=== PATIENT | female | born 1980 | race Caucasian/White ===

== ENCOUNTER → 2019-10-17 09:09 | Outpatient (BNVA) | payer OTHER, MEDICAID, SELFPAY | PROVIDERS: Family Provider Family Medicine; Visit Provider Psychiatry & Neurology Neurology | DX: M54.2 Cervicalgia (principal); M79.602 Pain in left arm; M79.601 Pain in right arm | CPT/HCPCS: 95886; 95910 ==

== ENCOUNTER → 2019-10-28 17:09 | Outpatient (BNVA) | payer OTHER, MEDICAID, SELFPAY | PROVIDERS: Family Provider Family Medicine; Visit Provider Obstetrics & Gynecology | DX: E89.40 Asymptomatic postprocedural ovarian failure (principal); N76.0 Acute vaginitis; B96.89 Other specified bacterial agents as the cause of diseases classified elsewhere | CPT/HCPCS: 87210 ==

== ENCOUNTER → 2019-12-12 09:32 | Outpatient (BNVA) | payer OTHER, MEDICAID, SELFPAY | PROVIDERS: Family Provider Family Medicine; PCP Family Medicine; Referring Provider Specialist; Visit Provider Anesthesiology Pain Medicine | DX: M54.81 Occipital neuralgia (principal); M47.812 Spondylosis without myelopathy or radiculopathy, cervical region; M62.838 Other muscle spasm; F17.210 Nicotine dependence, cigarettes, uncomplicated | CPT/HCPCS: 64405; J1030; J3490 ==

== ENCOUNTER → 2019-12-16 15:57 | Outpatient (BNVA) | payer OTHER, MEDICAID, SELFPAY | PROVIDERS: Family Provider Family Medicine; PCP Family Medicine; Visit Provider Obstetrics & Gynecology | DX: B37.3 Candidiasis of vulva and vagina (principal) | CPT/HCPCS: 87210 ==

== ENCOUNTER → 2019-12-26 12:32 | Outpatient (BNVA) | payer OTHER, MEDICAID, SELFPAY | PROVIDERS: Family Provider Family Medicine; PCP Family Medicine; Visit Provider Anesthesiology Pain Medicine | DX: M54.2 Cervicalgia (principal); M54.81 Occipital neuralgia | CPT/HCPCS: 62321; J1100; J2001 ==

== ENCOUNTER → 2020-02-06 08:47 | Outpatient (BNVA) | payer OTHER, MEDICAID, SELFPAY | PROVIDERS: Family Provider Family Medicine; PCP Family Medicine; Visit Provider Anesthesiology Pain Medicine | DX: M47.812 Spondylosis without myelopathy or radiculopathy, cervical region (principal); M54.16 Radiculopathy, lumbar region; M54.81 Occipital neuralgia; M62.838 Other muscle spasm; F17.210 Nicotine dependence, cigarettes, uncomplicated; Z79.891 Long term (current) use of opiate analgesic | CPT/HCPCS: 64405; 99214; J1040; J3490 ==

== ENCOUNTER → 2020-03-09 09:34 | Outpatient (BNVA) | payer OTHER, MEDICAID, SELFPAY | PROVIDERS: Family Provider Family Medicine; PCP Family Medicine; Visit Provider Anesthesiology Pain Medicine | DX: M47.812 Spondylosis without myelopathy or radiculopathy, cervical region (principal); M54.81 Occipital neuralgia; M62.838 Other muscle spasm; F17.210 Nicotine dependence, cigarettes, uncomplicated | CPT/HCPCS: 99213 ==

== ENCOUNTER 2020-03-09 10:50 | Outpatient (CLI) | payer OTHER, MEDICAID, SELFPAY ==
--- NOTE | 2020-03-09 11:02 | XR_ITS ---
WS: [id number] LUMBAR SPINE TECHNIQUE: 5 views of the lumbar spine CLINICAL INFORMATION: back and leg pain COMPARISON: October 01, 2018 FINDINGS: Mild lumbar curve convex left. Cholecystectomy clips. Five [id number] lumbar vertebral bodies. D isc space heights are well preserved. No compression fractures. No visualized pars defects. No spondy lolisthesis. Visualized sacroiliac joints are normal. Normal visualized soft tissues. Partially visua lized bowel gas pattern is normal. XR/XR lumbar spine min 4V [id number] IMPRESSION: 1. Mild lumbar curve convex left. 2. No acute lumbar spine findings. 3. Disc space heights and vertebral body heights well-preserved.
== END 2020-03-09 10:51 | disposition home or self-care (01) ==
LOC: WPI 10:54
PROVIDERS: PCP Family Medicine; Visit Provider Anesthesiology Pain Medicine
DX: M54.9 Dorsalgia, unspecified (principal); M79.606 Pain in leg, unspecified
CPT/HCPCS: 72114

== ENCOUNTER → 2020-03-18 09:40 | Outpatient (BNVA) | payer OTHER, MEDICAID, SELFPAY | PROVIDERS: PCP Family Medicine; Visit Provider Anesthesiology Pain Medicine | DX: M47.812 Spondylosis without myelopathy or radiculopathy, cervical region (principal); M47.816 Spondylosis without myelopathy or radiculopathy, lumbar region; M54.81 Occipital neuralgia; M62.838 Other muscle spasm; F17.210 Nicotine dependence, cigarettes, uncomplicated | CPT/HCPCS: 99214 ==

== ENCOUNTER → 2020-03-23 13:57 | Outpatient (BNVA) | payer OTHER, MEDICAID, SELFPAY | PROVIDERS: PCP Family Medicine; Visit Provider Anesthesiology Pain Medicine | DX: M47.816 Spondylosis without myelopathy or radiculopathy, lumbar region (principal); M54.9 Dorsalgia, unspecified; F17.210 Nicotine dependence, cigarettes, uncomplicated; Z79.891 Long term (current) use of opiate analgesic | CPT/HCPCS: 64493; 64494; 64495; J2001; J3490 ==

== ENCOUNTER → 2020-04-01 09:19 | Outpatient (BNVA) | payer OTHER, MEDICAID, SELFPAY | PROVIDERS: PCP Family Medicine; Visit Provider Anesthesiology Pain Medicine | DX: M54.16 Radiculopathy, lumbar region (principal); M47.816 Spondylosis without myelopathy or radiculopathy, lumbar region; M54.9 Dorsalgia, unspecified; M47.812 Spondylosis without myelopathy or radiculopathy, cervical region; M54.81 Occipital neuralgia; M62.838 Other muscle spasm; F17.210 Nicotine dependence, cigarettes, uncomplicated; Z79.891 Long term (current) use of opiate analgesic | CPT/HCPCS: 99214 ==

== ENCOUNTER 2020-04-08 17:23 | Outpatient (CLI) | payer OTHER, MEDICAID, SELFPAY ==
--- NOTE | 2020-04-08 17:30 | MR_ITS ---
WS: [id number] MRI LUMBAR SPINE NONCONTRAST TECHNIQUE: Sagittal T1, T2 and STIR imaging. Axial T1 and T2 imaging. CLINICAL INFORMATION: M54.16 Radiculopathy, lumbar region COMPARISON: None. FINDINGS: Normal lumbar line. No acute compression. No high-grade central canal stenosis. L1-L2: Normal. L2-L3: No significant disc bulging. Mild facet arthropathy. Spinal canal and foramen are patent. L3-L4: Tiny left foraminal protrusion with mild left and no significant right foraminal narrowing. Sp inal canal is patent. Mild facet arthropathy. L4-L5: No significant disc bulging. Spinal canal and foramen are patent. Mild facet arthropathy. L5-S1: No significant disc bulging. Mild facet arthropathy. Spinal canal and foramen are patent. Visualized pelvic bony structures: Normal. Paravertebral soft tissues: Normal. MR/MR lumbar spine wo con* [id number] IMPRESSION: 1. Normal lumbar alignment. No acute compression. No high-grade central canal stenosis. 2. Tiny left foraminal protrusion L3-4 with mild left foraminal narrowing. 3. Mild facet arthropathy L3-L5.
== END 2020-04-08 17:24 | disposition home or self-care (01) ==
PROVIDERS: PCP Family Medicine; Visit Provider Anesthesiology Pain Medicine
DX: M54.16 Radiculopathy, lumbar region (principal); M47.816 Spondylosis without myelopathy or radiculopathy, lumbar region
CPT/HCPCS: 72148

== ENCOUNTER → 2020-04-09 11:51 | Outpatient (BNVA) | payer OTHER, MEDICAID, SELFPAY | PROVIDERS: PCP Family Medicine; Referring Provider Nurse Practitioner Family; Visit Provider Specialist | DX: G43.709 Chronic migraine without aura, not intractable, without status migrainosus (principal); M79.7 Fibromyalgia; F17.210 Nicotine dependence, cigarettes, uncomplicated | CPT/HCPCS: 99214 ==

== ENCOUNTER 2020-04-10 10:57 | Outpatient (CLI) | payer OTHER, MEDICAID, SELFPAY ==
--- NOTE | 2020-04-10 11:02 | XR_ITS ---
WS: [id number] Chest 2 views, 04/10/2020 Clinical Data: WEIGHT LOSS;SMOKER Comparison: PA and lateral chest, 10/10/2018. Findings: No nodules, masses or effusions are seen. The heart is normal. The pulmonary vascularity is not increased. No pneumonia or pneumothorax is seen. XR/XR chest 2V* [id number] Impression: Negative chest.
== END 2020-04-10 10:58 | disposition home or self-care (01) ==
LOC: RADWPI 10:59
PROVIDERS: Family Provider Family Medicine; PCP Family Medicine; Visit Provider Family Medicine
DX: R63.4 Abnormal weight loss (principal); F17.210 Nicotine dependence, cigarettes, uncomplicated
CPT/HCPCS: 71046

== ENCOUNTER → 2020-04-15 09:04 | Outpatient (BNVA) | payer OTHER, MEDICAID, SELFPAY | PROVIDERS: PCP Family Medicine; Visit Provider Anesthesiology Pain Medicine | DX: M54.81 Occipital neuralgia (principal); M47.812 Spondylosis without myelopathy or radiculopathy, cervical region; M47.816 Spondylosis without myelopathy or radiculopathy, lumbar region; M54.16 Radiculopathy, lumbar region; M54.9 Dorsalgia, unspecified; M62.838 Other muscle spasm; F17.210 Nicotine dependence, cigarettes, uncomplicated | CPT/HCPCS: 99213; 99214 ==

== ENCOUNTER → 2020-05-11 09:30 | Outpatient (BNVA) | payer OTHER, MEDICAID, SELFPAY | PROVIDERS: PCP Internal Medicine; Visit Provider Anesthesiology Pain Medicine | DX: M47.816 Spondylosis without myelopathy or radiculopathy, lumbar region (principal); M54.16 Radiculopathy, lumbar region; M47.812 Spondylosis without myelopathy or radiculopathy, cervical region; M48.02 Spinal stenosis, cervical region; M54.81 Occipital neuralgia; M54.9 Dorsalgia, unspecified; M62.838 Other muscle spasm; F17.210 Nicotine dependence, cigarettes, uncomplicated | CPT/HCPCS: 99213 ==

== ENCOUNTER → 2020-05-18 14:04 | Outpatient (BNVA) | payer OTHER, MEDICAID, SELFPAY | PROVIDERS: PCP Internal Medicine; Visit Provider Anesthesiology Pain Medicine | DX: M47.816 Spondylosis without myelopathy or radiculopathy, lumbar region (principal); M54.9 Dorsalgia, unspecified; F17.210 Nicotine dependence, cigarettes, uncomplicated; Z79.891 Long term (current) use of opiate analgesic | CPT/HCPCS: 64493; 64494; 64495; J1040; J3490 ==

== ENCOUNTER 2020-05-21 17:50 | Emergency (ER) | payer OTHER, MEDICAID, SELFPAY ==
[2020-05-21 18:07] VITALS: BP 119/78; PULSE 85; RESP 14; TEMP 36.7; O2SAT 99; BMI 21.2
--- NOTE | 2020-05-21 19:09 | ED_ITS ---
HPI - General Adult General: Chief complaint: General Medical Stated complaint: SORE THROAT/ACHES Time Seen by Provider: 05/21/20 19:08 History of Present Illness: HPI narrative: Patient is a 40-year-old female comes to the ED with a sore throat, episodic chest pains and shortness of breath. Patient says sore throat started about 3 days ago. Within the last 24 hours she started developing a dry cough. She reports having an episode of chest pain last night that lasted a couple minutes along with shortness of breath during that time. It resolved and then today while patient was at work when she was up and moving around she started experiencing some mild chest pain and shortness of breath. Patient also says for the past couple days she has had left calf pain. Patient has no history of blood clots or DVT or cardiac issues. Denies fever, chills, nausea/vomiting, abdominal pain, dysuria, hematuria, diarrhea, constipation, blood in stool. Associated symptoms: Reports chest pain (episodic- not currently experiencing symptom) and dyspnea (episodic- not currently experiencing symptom); Deny headache(s), nausea, rash, palpitations or vomiting Review of Systems Const: Denies: fever(s), chills or fatigue Eyes: Denies: change in vision or eye discomfort ENMT: Reports: throat pain; Denies: odynophagia, nasal discharge or nasal congestion Card: Reports: chest pain (episodic- not currently experiencing symptom); Denies: palpitations, edema, swelling of feet/ankles, dyspnea on exertion or orthopnea Resp: Reports: dyspnea (episodic- not currently experiencing symptom); Denies: productive cough or non-productive cough GI: Denies: abdominal pain, nausea, vomiting, diarrhea, constipation or hematochezia : Denies: flank pain, dysuria or hematuria Musc: Reports: extremity pain (left calf pain); Denies: neck pain, back pain or extremity swelling Skin/Breast: Denies: rash or new lesions Neuro: Denies: headache(s), numbness in extremities or weakness in extremities PFS ED PFSH: Medical History Cervical disc displacement Chronic GERD Chronic migraine 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 Diverticulosis Endometriosis Previously diagnosed with endometriosis by laparoscopy. Definitively treated with LAVH and BSO on 07/04/2017. History of gestational diabetes Diagnosed in third in 2015. Urinary, incontinence, stress female Surgical History History of cholecystectomy (~11/2013) Laparoscopic. Performed at [facility] History of hysterectomy (07/04/17) LAVH/BSO. Dx: Endometriosis, Chronic pelvic pain, Right ovarian cyst. Performed by Dr. Swenson at [facility] in [place], [place]. Final diagnosis: Right mucinous cystadenoma. History of laparoscopy (~2003) Treatment of endometriosis. Performed by Dr. Shane at [facility]. History of laparoscopy (~2004) Treatment of endometriosis. Performed by Dr. Shane at [facility]. Family History Father Hypertension Prostate cancer Grandfather Heart disease PATERNAL Colon cancer PATERNAL Lung cancer MATERNAL Grandmother Heart disease PATERNAL Breast cancer PATERNAL Family/Other Diabetes MATERNAL AUNT Breast cancer PATERNAL AUNT Ovarian cancer PATERNAL COUSIN Leukemia Maternal Aunt Mother Lung cancer Social History Smoking and tobacco status: current every day smoker cigarettes Packs smoked per day: 1 Years cigarettes smoked: 23 Alcohol intake: never History of recent travel: No Physical Exam Const: COMMON NORMALS: no acute distress, patient oriented x3, healthy appearing and alert GENERAL APPEARANCE: cooperative and comfortable HENMT: COMMON NORMALS: normocephalic HEAD & SCALP: normocephalic MOUTH: Normal oral and palatal mucosa present THROAT: uvula midline and posterior oropharynx abnormal erythema Eye: COMMON NORMALS: Equal, round and reactive pupils present and conjunctivae normal CONJUNCTIVA: Yes conjunctivae normal PUPIL: Yes Equal, round and reactive pupils present Neck/C-Spine: COMMON NORMALS: supple GENERAL: Yes normal visual inspection Resp: COMMON NORMALS: normal respiratory effort, No retractions, No use of accessory muscles and clear to auscultation bilaterally EFFORT & INSPECTION: Yes able to speak in complete sentences, No tachypneic, No respiratory distress, No labored and No Actively coughing AUSCULTATION: clear to auscultation bilaterally Cardio: COMMON NORMALS: regular rate, regular rhythm, S1 normal heart sound present, S2 normal heart sound present, No gallops present (Cardio), No clicks present (Cardio), No murmurs present (Cardio) and Peripheral pulses 2+ throughout RATE: regular rate RHYTHM: regular rhythm HEART SOUNDS: S1 normal heart sound present and S2 normal heart sound present PERIPHERAL PULSES: Peripheral pulses 2+ throughout GI: COMMON NORMALS: Normal to inspection, nondistended, normoactive bowel sounds present, Soft to palpation, non-tender and no masses PALPATION: Yes Soft to palpation : COMMON NORMALS: Yes no CVA tenderness BLADDER/KIDNEY EXAM: Yes no CVA tenderness Back/Pelvis: COMMON NORMALS: no CVA tenderness Extremity: NARRATIVE EXTREMITY EXAM: Patient had left calf tenderness, but no edema of left lower extremity. GENERAL: Yes normal exam except as noted Neuro: COMMON NORMALS: patient oriented x3 and moves all extremities SENSORIUM/ORIENTATION: Yes alert Skin: COMMON NORMALS: no rashes or lesions noted GENERAL SKIN EXAM: no rashes or lesions noted and dry skin Course Vital Signs: Vital signs: Vital Signs Temperature 98.0 F 05/21/20 18:07 Pulse Rate 72 05/21/20 21:14 Respiratory Rate 14 05/21/20 21:14 Blood Pressure 107/72 05/21/20 21:14 Pulse Oximetry 98 05/21/20 21:14 MDM - General Adult MDM Narrative: Medical decision making narrative: Patient is a 40 year-old female comes to the ED with sore throat and an episode of chest pain and shortness of breath. Physical exam shows a healthy patient with no signs of respiratory distress or pain. Lungs are clear to auscultation bilaterally and posterior oropharynx has some erythema. Patient also has some left calf tenderness upon palpation, but no lower extremity edema and pedal pulse 2+. CBC, CMP were unremarkable. EKG showed normal sinus rhythm with no ST segment elevation or depression. Troponin is negative. Chest x-ray showed no acute findings. Ultrasound venous duplex of the left lower extremity showed no DVTs or blood clots. COVID-19 testing performed and labs pending. Patient was diagnosed with upper respiratory infection and noncardiac chest pain. Patient was told to self quarantine for the next 14 days pending COVID-19 results. Return to ED precautions given. Follow-up with PCP in 7 to 10 days for reevaluation. Patient understood and agreed with plan. Lab Data: Attestation: I reviewed the patient's lab results. Labs: Lab Results 05/21/20 05/21/20 05/21/20 Range/Units 19:26 19:26 19:26 WBC 10.5 H (4.0-10.0) 10^3/ uL RBC 4.05 L (4.1-5.3) 10^6/u L Hgb 12.4 (11.5-15.3) g/dL Hct 38.1 (37.0-47.0) % MCV 94.1 (81-99) fL MCH 30.6 (28.0-34.0) pg MCHC 32.5 (30.0-36.0) g/dL RDW 13.8 (12.1-15.1) % Plt Count 243 (130-400) 10^3/c mm MPV 10.7 H (7.4-10.4) fL Neut % (Auto) 64.6 % Lymph % (Auto) 25.2 % [place] % (Auto) 6.8 % Eos % (Auto) 2.2 % Baso % (Auto) 0.8 % Neut # (Auto) 6.79 (1.8-7.7) 10^3/u L Lymph # (Auto) 2.6 (0.8-4.8) 10^3/u L [place] # (Auto) 0.7 (0.2-0.9) 10^3/u L Eos # (Auto) 0.2 (0.0-0.8) 10^3/u L Baso # (Auto) 0.1 (0.0-0.1) 10^3/u L Nucleated RBC % (a uto) 0 % Nucleated RBCs # 0.0 /100WBC Sodium 138 (136-145) mmol/L Potassium 3.4 L (3.5-5.1) mmol/L Chloride 105 (98-107) mmol/L Carbon Dioxide 22 (22-29) mmol/L Anion Gap 14.4 (5-19) BUN 16 (6-20) mg/dL Creatinine 0.6 (0.5-0.9) mg/dL GFR Calculation 110.7 (90-130) mL/min Glucose 95 (65-115) mg/dL Calculated Osmolal ity 282 L (285-295) mOsm/k g Calcium 9.2 (8.5-10.5) mg/dL Total Bilirubin 0.2 (0.15-1.2) mg/dL AST 12 (0-32) U/L ALT 9 (0-33) U/L Alkaline Phosphata se 101 (35-105) IU/L Troponin T Baselin e 6 (0-10) ng/L Total Protein 7.2 (6.6-8.7) g/dL Albumin 4.4 (3.5-5.2) g/dL Globulin 2.8 (1.3-4.6) g/dL Group A Strep Rapi d (Negative) 05/21/20 Range/Units 19:31 WBC (4.0-10.0) 10^3/ uL RBC (4.1-5.3) 10^6/u L Hgb (11.5-15.3) g/dL Hct (37.0-47.0) % MCV (81-99) fL MCH (28.0-34.0) pg MCHC (30.0-36.0) g/dL RDW (12.1-15.1) % Plt Count (130-400) 10^3/c mm MPV (7.4-10.4) fL Neut % (Auto) % Lymph % (Auto) % [place] % (Auto) % Eos % (Auto) % Baso % (Auto) % Neut # (Auto) (1.8-7.7) 10^3/u L Lymph # (Auto) (0.8-4.8) 10^3/u L [place] # (Auto) (0.2-0.9) 10^3/u L Eos # (Auto) (0.0-0.8) 10^3/u L Baso # (Auto) (0.0-0.1) 10^3/u L Nucleated RBC % (a uto) % Nucleated RBCs # /100WBC Sodium (136-145) mmol/L Potassium (3.5-5.1) mmol/L Chloride (98-107) mmol/L Carbon Dioxide (22-29) mmol/L Anion Gap (5-19) BUN (6-20) mg/dL Creatinine (0.5-0.9) mg/dL GFR Calculation (90-130) mL/min Glucose (65-115) mg/dL Calculated Osmolal ity (285-295) mOsm/k g Calcium (8.5-10.5) mg/dL Total Bilirubin (0.15-1.2) mg/dL AST (0-32) U/L ALT (0-33) U/L Alkaline Phosphata se (35-105) IU/L Troponin T Baselin e (0-10) ng/L Total Protein (6.6-8.7) g/dL Albumin (3.5-5.2) g/dL Globulin (1.3-4.6) g/dL Group A Strep Rapi d Negative (Negative) Imaging Data^: CXR: Attestation: I personally reviewed and interpreted this imaging study as follows: Radiologist's impression: [address] [address] XRay Report Signed Patient: Tess Joseph Unit #: [id number] : 1980 Age/Sex: 40 / F ADM Date: 05/21/20 Loc: ER Room/Bed: Attending Dr: Ordering Provider/Ordering MD: David Garcia Date of Service: 05/21/20 Procedure(s): XR chest 1V portable [id number] Accession Number(s): [id number] Report Number: [id number] PROCEDURE INFORMATION: Exam: XR Chest, 1 View Exam date and time: 05/21/2020 8:06 PM Age: 40 years old Clinical indication: Dyspnea; Additional info: Cp and SOB TECHNIQUE: Imaging protocol: XR of the chest Views: 1 view. COMPARISON: CR XR chest 2V* [id number] 04/10/2020 11:28 AM FINDINGS: Lungs: Unremarkable. No consolidation. Bilateral nipples are projected over the lung bases similar to the prior exam. Pleural space: Unremarkable. No pleural effusion. No pneumothorax. Heart/Mediastinum: Unremarkable. No cardiomegaly. Bones/joints: No acute abnormality. XR/XR chest 1V portable [id number] IMPRESSION: No acute findings. Dictated By: Melissa Carranza Signed By: Melissa Carranza Signed Date/Time: 05/21/202018 DD/ 2017 Vascular: Attestation: I personally reviewed and interpreted this imaging study as follows: Radiologist's impression: Ultrasound of the venous duplex left lower extremity?prelim report showed no DVTs or clots. EKG Data^: EKG 1: Attestation: I personally reviewed and interpreted this EKG as follows: EKG interpretation date: 05/21/20 Interpretation: Sinus rhythm, 69 bpm, no ST segment elevation or depression seen. Computer generated interpretation: Chest X-Ray 05/21/20 19:19 IMPRESSION: No acute findings. Discharge Plan Discharge Patient Disposition: Home Clinical Impression: Encounter for screening laboratory testing for COVID-19 virus, Chest pain, non- cardiac URI (upper respiratory infection) Qualifiers: URI type: acute pharyngitis Pharyngitis/tonsillitis etiology: unspecified etiology Qualified Code(s): J02.9 - Acute pharyngitis, unspecified Condition: Stable Prescriptions: No Action estradiol 1 mg tablet 1.5 mg PO QDAY Qty: 45 RF: 12 medroxyprogesterone 2.5 mg tablet 2.5 mg PO DAILY Qty: 30 RF: 12 Zyrtec 10 mg capsule 10 mg PO DAILY PRN (Reason: allergies) RF: 0 pantoprazole [Protonix] 40 mg tablet,delayed release (DR/EC) 40 mg PO QDAY RF: 0 venlafaxine [Effexor XR] 150 mg capsule,extended release 24hr 150 mg PO QDAY RF: 0 promethazine 25 mg tablet 25 mg PO Q6H PRN (Reason: n/v) RF: 0 gabapentin 100 mg capsule 100 mg PO TID MDD 3 Qty: 90 RF: 0 tizanidine 4 mg tablet 4 mg PO BID PRN (Reason: muscle spasticity) Qty: 60 RF: 0 hydrocodone-acetaminophen 5-325 mg tablet 1 tab PO BID MDD 2 PRN (Reason: severe pain (scale score 7-10)) 30 Days Qty: 60 RF: 0 topiramate 100 mg tablet 100 mg PO BID Qty: 60 RF: 3 Discharge Orders: Discharge Order (Routine); Ordered 05/21/20 Ordered By: David Garcia Referrals: MANUEL TRIPATHI, [facility] P[facility]ERER [Primary Care Provider] - Discharge Diet: Regular Discharge Activity: Increase activity as tolerated Patient Instructions: Upper Respiratory Infection (ED), Viral Syndrome (ED), Noncardiac Chest Pain (ED) Activity Restrictions/Additional Instructions: Follow-up with medical provider as directed. Self quarantine for the next 14 days pending COVID testing results. Results should be back within the next 2 to 4 days. I recommend calling [facility] to get test results. Take ibuprofen or Tylenol for any fevers or pain. Drink plenty of fluids and stay hydrated. Return to the ER or your medical provider if condition worsens. Please read and understand discharge instructions. If any questions, please ask. Discharge Date/Time: 05/21/20 21:10 Coding Level of Care Code ED Silverware Cleaner for Gonzalo Fwd Exam Comprehensive
--- NOTE | 2020-05-21 19:19 | ECG_ITS ---
[facility] Test Date: 2020-05-21 Pat Name: Tess Joseph Department: Room: Gender: Female Marketing Specialist: : 1980 Requested By: David Garcia Order Number: [id number] Stallworth MD: Spring Mcghee M.D. Measurements Intervals [place] Rate: 69 P: 46 ID: [id number] QRS: 32 QRSD: 88 T: 38 QT: 401 QTc: 431 Interpretive Statements SINUS RHYTHM POSSIBLE RIGHT VENTRICULAR CONDUCTION DELAY [RSR (QR) IN V1/V2] Compared to ECG 11/26/2016 18:30:20 No significant changes Electronically Signed On 05-22-2020 11:33:16 CDT by Spring Mcghee M.D. [id number]
--- NOTE | 2020-05-21 19:19 | USCV_ITS ---
Josephsummer Age: 40 Gender: F : 1980 Exam Date: 05/21/2020 20:26 Ordering Phys: David Garcia Technologist: Eris Winn [place] [facility] [place]: LT LEG PAIN AND EDEMA HISTORY: Lower extremity pain. PROCEDURES: Venous duplex imaging was performed in only the left lower extremity. The following venous structures were evaluated: common femoral vein, profunda vein, proximal portion of the greater saphenous vein, superficial femoral vein, and the popliteal vein. In addition, the posterior tibial and peroneal trunk were evaluated. On the left side, the common femoral, superficial femoral, profunda femoral, popliteal, posterior tibial, greater saphenous veins, and the peroneal trunk were identified and interrogated in the standard fashion. These veins were found to be easily compressible with spontaneous blood flow. No evidence of insufficiency or thrombus noted. FINDINGS: Normal 2-D Doppler and augmentation and compressibility throughout the lower extremity venous structures. Additional imaging through the proximal calf veins also reveals no thrombus. Limited evaluation of the greater saphenous vein is patent with no thrombus.. CONCLUSIONS No evidence of left lower extremity DVT. Chencho Conteh MD (Electronically Signed) Final Date: 22 May 2020 14:38 S
--- NOTE | 2020-05-21 19:19 | XRR_ITS ---
PROCEDURE INFORMATION: Exam: XR Chest, 1 View Exam date and time: 05/21/2020 8:06 PM Age: 40 years old Clinical indication: Dyspnea; Additional info: Cp and SOB TECHNIQUE: Imaging protocol: XR of the chest Views: 1 view. COMPARISON: CR XR chest 2V* [id number] 04/10/2020 11:28 AM FINDINGS: Lungs: Unremarkable. No consolidation. Bilateral nipples are projected over the lung bases similar to the prior exam. Pleural space: Unremarkable. No pleural effusion. No pneumothorax. Heart/Mediastinum: Unremarkable. No cardiomegaly. Bones/joints: No acute abnormality. XR/XR chest 1V portable [id number] IMPRESSION: No acute findings.
[2020-05-21 19:28] VITALS: BP 116/73; PULSE 67; RESP 14; O2SAT 99
[2020-05-21 19:41] LABS: Basophils # 0.1 10^3/uL (0.0-0.1); Basophils % 0.8 %; Eosinophils # 0.2 10^3/uL (0.0-0.8); Eosinophils % 2.2 %; Hematocrit 38.1 % (37.0-47.0); Hemoglobin 12.4 g/dL (11.5-15.3); Lymphocytes # 2.6 10^3/uL (0.8-4.8); Lymphocytes % 25.2 %; Mean Corpuscular HGB Conc 32.5 g/dL (30.0-36.0); Mean Corpuscular Hemoglobin 30.6 pg (28.0-34.0); Mean Corpuscular Volume 94.1 fL (81-99); Mean Platelet Volume 10.7 fL (7.4-10.4); Monocytes # 0.7 10^3/uL (0.2-0.9); Monocytes % 6.8 %; Neutrophils # 6.79 10^3/uL (1.8-7.7); Neutrophils % 64.6 %; Nucleated Red Blood Cells % 0 %; Platelet Count 243 10^3/cmm (130-400); Red Blood Count 4.05 10^6/uL (4.1-5.3); Red Cell Distribution Width 13.8 % (12.1-15.1); White Blood Count 10.5 10^3/uL (4.0-10.0)
--- NOTE | 2020-05-21 19:58 | PC.NURSE ---
xray in room
[2020-05-21 20:12] LABS: Rapid Strep A Test Negative (Negative)
[2020-05-21 20:24] LABS: Alanine Aminotransferase 9 U/L (0-33); Albumin Level 4.4 g/dL (3.5-5.2); Alkaline Phosphatase 101 IU/L (35-105); Anion Gap 14.4 (5-19); Aspartate Amino Transferase 12 U/L (0-32); Blood Urea Nitrogen 16 mg/dL (6-20); Calcium 9.2 mg/dL (8.5-10.5); Carbon Dioxide 22 mmol/L (22-29); Chloride 105 mmol/L (98-107); Globulin 2.8 g/dL (1.3-4.6); Glomerular Filtration Rate 110.7 mL/min (90-130); Glucose 95 mg/dL (65-115); Osmolality Calculated 282 mOsm/kg (285-295); Potassium 3.4 mmol/L (3.5-5.1); Sodium 138 mmol/L (136-145); Total Bilirubin 0.2 mg/dL (0.15-1.2); Total Protein 7.2 g/dL (6.6-8.7)
[2020-05-21 20:28] LABS: Troponin(5th) Baseline 6 ng/L (0-10)
[2020-05-21 21:05] VITALS: BP 102/76; PULSE 70; O2SAT 98
[2020-05-21 21:14] VITALS: BP 107/72; PULSE 72; RESP 14; O2SAT 98
[2020-05-23 17:07] LABS: Quest SARS-CoV-2 RNA NOT DETECTED (NOT DETECTED)
--- NOTE | 2020-05-24 11:33 | PC.NURSE ---
pt was called and informed of neg COVID results
== END 2020-05-21 21:10 | disposition home or self-care (01) ==
PROVIDERS: Emergency Medicine; Emergency Provider Physician Assistant; PCP Nurse Practitioner Family
DX: J02.9 Acute pharyngitis, unspecified (principal); R07.89 Other chest pain; F17.210 Nicotine dependence, cigarettes, uncomplicated
CPT/HCPCS: 12345; 71045; 80053; 84484; 85025; 87081; 87635; 87880; 93005; 93971; 99282; 99283

== ENCOUNTER 2020-10-22 17:38 | Emergency (ER) | payer OTHER, MEDICAID, SELFPAY ==
[2020-10-22] VITALS (7 sets, daily range): BP systolic 90–122; BP diastolic 68–79; PULSE 67–102; RESP 16–23; TEMP 36.3–36.7; O2SAT 97–100; BMI 20.4
--- NOTE | 2020-10-22 18:25 | XR_ITS ---
WS: [id number] Exam: XR chest 1V portable [id number] Date/Time of Exam: 10/22/2020 6:38 PM Reason For Exam: cough and cp Comparison 05/21/2020. Findings: The lungs are clear and fully expanded. Costophrenic angles are sharp. No infiltrates. Bronchovascula r relief appears normal. Cardiac silhouette is unremarkable. Bony elements are intact. XR/XR chest 1V portable [id number] IMPRESSION: Unremarkable chest radiograph.
--- NOTE | 2020-10-22 18:26 | ECG_ITS ---
[facility] Test Date: 2020-10-22 Pat Name: Tess Joseph Department: Room: Gender: Female Director Financial Services: : 1980 Requested By: David Garcia Order Number: [id number] Basim MD: Spring Mcghee M.D. Measurements Intervals [place] Rate: P: AR: QRS: 0 QRSD: T: 0 QT: QTc: Interpretive Statements SINUS TACHYCARDIA NON SPECIFIC T WAVE ABNORMALITY Compared to ECG 05/21/2020 19:34:33 Sinus rhythm no longer present Electronically Signed On 10-23-2020 22:15:43 FOUNDATION ASSISTANT by Spring Mcghee M.D. [id number]
--- NOTE | 2020-10-22 18:27 | W.ED.CHESTPA ---
HPI - Chest Pain General: Chief Complaint: Chest Pain Stated Complaint: COVID symptoms, recently off quarantine, SOB,cough Time Seen by Provider: 10/22/20 18:25 History of Present Illness: HPI narrative: Patient is a 40-year-old female comes to the ED with cough and chest pain. Patient thinks she was diagnosed with Covid on October 09 and just finished up her self quarantine yesterday. She still has a cough, chest pain and bilateral arm pain that has been going on since October 09. Chest pain is described as mild and has been going on for approximately 2 weeks. She does say that her chest pain is improving. She describes her cough as productive in the phlegm is sometimes clear or greenish-yellow. Patient had some diarrhea but that has since resolved. She is also complaining of having some nontraumatic mild left leg pain. Denies any past DVTs, blood clots or calf tenderness. Denies any fever, chills, shortness of breath, hemoptysis, abdominal pain, nausea/vomiting, dysuria or hematuria. Associated symptoms: Deny abdominal pain, dyspnea, fever(s), nausea, palpitations or vomiting Review of Systems Const: Denies: fever(s), chills or fatigue Eyes: Denies: change in vision or eye discomfort ENMT: Denies: throat pain, odynophagia, nasal discharge or nasal congestion Card: Reports: chest pain; Denies: palpitations, edema, swelling of feet/ankles, dyspnea on exertion or orthopnea Resp: Reports: productive cough and change in phlegm color (Clear and sometimes greenish-yellow.); Denies: dyspnea or non-productive cough GI: Denies: abdominal pain, nausea, vomiting, diarrhea, constipation or hematochezia : Denies: flank pain, dysuria or hematuria Musc: Reports: extremity pain (Bilateral arm pain. 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 Diverticulosis Endometriosis Previously diagnosed with endometriosis by laparoscopy. Definitively treated with LAVH and BSO on 07/04/2017. Grade III internal hemorrhoids History of gestational diabetes Diagnosed in third in 2014. Urinary, incontinence, stress female Surgical History History of cholecystectomy (~11/2013) Laparoscopic. Performed at [facility] History of hysterectomy (07/04/17) LAVH/BSO. Dx: Endometriosis, Chronic pelvic pain, Right ovarian cyst. Performed by Dr. Swenson at [facility] in [place], [place]. Final diagnosis: Right mucinous cystadenoma. History of laparoscopy (~2003) Treatment of endometriosis. [facility] [place] Shane at [facility] History of laparoscopy (~2004) Treatment of endometriosis. [place]. Shane at [facility]. Status post colonoscopy Family History Father Hypertension Prostate cancer Grandfather Heart disease PATERNAL Colon cancer PATERNAL Lung cancer MATERNAL Bleeding disorder Grandmother Heart disease PATERNAL Breast cancer PATERNAL Family/Other Diabetes MATERNAL AUNT Breast cancer PATERNAL AUNT Ovarian cancer PATERNAL COUSIN Leukemia Maternal Aunt Mother Lung cancer Denies family history of Anesthesia complication Social History Smoking and tobacco status: current every day smoker cigarettes Packs smoked per day: 1 Years cigarettes smoked: 23 Alcohol intake: never Household members: spouse Marital status: Current occupational status: employed History of recent travel: No Physical Exam Const: COMMON NORMALS: patient oriented x3 and alert GENERAL APPEARANCE: cooperative and comfortable HENMT: COMMON NORMALS: normocephalic HEAD & SCALP: normocephalic MOUTH: Normal oral and palatal mucosa present THROAT: posterior oropharynx normal and uvula midline Neck/C-Spine: COMMON NORMALS: supple GENERAL: Yes normal visual inspection Resp: COMMON NORMALS: normal respiratory effort, No retractions, No use of accessory muscles and clear to auscultation bilaterally AUSCULTATION: clear to auscultation bilaterally Cardio: COMMON NORMALS: regular rate, regular rhythm, S1 normal heart sound present, S2 normal heart sound present, No gallops present (Cardio), No clicks present (Cardio), No murmurs present (Cardio) and Peripheral pulses 2+ throughout RATE: regular rate RHYTHM: regular rhythm HEART SOUNDS: S1 normal heart sound present and S2 normal heart sound present PERIPHERAL PULSES: Peripheral pulses 2+ throughout GI: COMMON NORMALS: Normal to inspection, nondistended, normoactive bowel sounds present, Soft to palpation, non-tender and no masses PALPATION: Yes Soft to palpation : COMMON NORMALS: Yes no CVA tenderness BLADDER/KIDNEY EXAM: Yes no CVA tenderness Back/Pelvis: COMMON NORMALS: no CVA tenderness Extremity: COMMON NORMALS: normal to inspection, no calf tenderness and no pedal edema Neuro: COMMON NORMALS: patient oriented x3 and moves all extremities SENSORIUM/ORIENTATION: Yes alert Skin: GENERAL SKIN EXAM: dry skin Course Vital Signs: Vital signs: Vital Signs Temperature 98.0 F 10/22/20 21:41 Pulse Rate 67 10/22/20 21:41 Respiratory Rate 16 10/22/20 21:41 Blood Pressure 122/79 10/22/20 21:41 Pulse Oximetry 99 10/22/20 21:41 MDM - Chest Pain MDM Narrative: Medical decision making narrative: Patient is a 40-year-old female comes to the ED with chest pain. Patient has had chest pain for the past 2 weeks. She was diagnosed with COVID-19 approximately 2 weeks ago and just got off self quarantine yesterday. She also is having some nontraumatic left lower leg pain. It started couple days ago. Physical exam is unremarkable patient appears in no acute distress or respiratory distress. Vitals stable. CBC and CMP were unremarkable. Troponin negative. EKG showed no signs of DE. D-dimer was elevated at 0.69. Chest x-ray showed no acute findings. Ultrasound venous duplex of left lower extremity showed no DVTs or blood clots. CT of chest was performed and showed no PE. Patient was diagnosed with noncardiac chest pain told to follow-up with PCP in 7 to 10 days for reevaluation. Return to ED precautions given. Patient understood and agree with plan. Lab Data: Attestation: I reviewed the patient's lab results. Labs: Lab Results 10/22/20 10/22/20 10/22/20 Range/Units 18:52 18:52 18:52 WBC 7.6 (4.0-10.0) 10^3/ uL RBC 4.38 (4.1-5.3) 10^6/u L Hgb 13.3 (11.5-15.3) g/dL Hct 40.6 (37.0-47.0) % MCV 92.7 (81-99) fL MCH 30.4 (28.0-34.0) pg MCHC 32.8 (30.0-36.0) g/dL RDW 13.0 (12.1-15.1) % Plt Count 230 (130-400) 10^3/c mm MPV 10.5 H (7.4-10.4) fL Neut % (Auto) 58.4 % Lymph % (Auto) 31.2 % [place] % (Auto) 5.9 % Eos % (Auto) 3.4 % Baso % (Auto) 0.7 % Neut # (Auto) 4.42 (1.8-7.7) 10^3/u L Lymph # (Auto) 2.4 (0.8-4.8) 10^3/u L [place] # (Auto) 0.5 (0.2-0.9) 10^3/u L Eos # (Auto) 0.3 (0.0-0.8) 10^3/u L Baso # (Auto) 0.1 (0.0-0.1) 10^3/u L Nucleated RBC % (a uto) 0 % Nucleated RBCs # 0.0 /100WBC D-Dimer 0.69 H (0-0.59) ug/mIFE U Sodium 141 (136-145) mmol/L Potassium 3.8 (3.5-5.1) mmol/L Chloride 106 (98-107) mmol/L Carbon Dioxide 23 (22-29) mmol/L Anion Gap 15.8 (5-19) BUN 13 (6-20) mg/dL Creatinine 0.6 (0.5-0.9) mg/dL GFR Calculation 110.7 (90-130) mL/min Glucose 82 (65-115) mg/dL Calculated Osmolal ity 291 (285-295) mOsm/k g Calcium 9.7 (8.5-10.5) mg/dL Total Bilirubin 0.2 (0.15-1.2) mg/dL AST 12 (0-32) U/L ALT 10 (0-33) U/L Alkaline Phosphata se 98 (35-105) IU/L Troponin T Baselin e (0-10) ng/L Troponin T 120 Min nenana (0-10) ng/L Delta Troponin T (0-10) ABS# Total Protein 7.1 (6.6-8.7) g/dL Albumin 4.6 (3.5-5.2) g/dL Globulin 2.5 (1.3-4.6) g/dL HCG, Qual (Negative) Urine Color (Yellow) Urine Appearance (CLEAR) Urine pH (5-7) Ur Specific Gravit y (1.005-1.030) Urine Protein (Negative) Urine Glucose (UA) (Normal) Urine Ketones (Negative) Urine Blood (Negative) Urine Nitrate (Negative) Urine Bilirubin (Negative) Urine Urobilinogen (Negative) mg/dL Ur Leukocyte Ibeth ase (Negative) Urine RBC (0-2) /hpf Urine WBC (0-5) /hpf Ur Squamous Epith Cells (0-5) /hpf Amorphous Sediment Urine Bacteria (NONE) /hpf Urine Mucus /hpf 10/22/20 10/22/20 10/22/20 Range/Units 18:52 18:52 20:31 WBC (4.0-10.0) 10^3/ uL RBC (4.1-5.3) 10^6/u L Hgb (11.5-15.3) g/dL Hct (37.0-47.0) % MCV (81-99) fL MCH (28.0-34.0) pg MCHC (30.0-36.0) g/dL RDW (12.1-15.1) % Plt Count (130-400) 10^3/c mm MPV (7.4-10.4) fL Neut % (Auto) % Lymph % (Auto) % [place] % (Auto) % Eos % (Auto) % Baso % (Auto) % Neut # (Auto) (1.8-7.7) 10^3/u L Lymph # (Auto) (0.8-4.8) 10^3/u L [place] # (Auto) (0.2-0.9) 10^3/u L Eos # (Auto) (0.0-0.8) 10^3/u L Baso # (Auto) (0.0-0.1) 10^3/u L Nucleated RBC % (a uto) % Nucleated RBCs # /100WBC D-Dimer (0-0.59) ug/mIFE U Sodium (136-145) mmol/L Potassium (3.5-5.1) mmol/L Chloride (98-107) mmol/L Carbon Dioxide (22-29) mmol/L Anion Gap (5-19) BUN (6-20) mg/dL Creatinine (0.5-0.9) mg/dL GFR Calculation (90-130) mL/min Glucose (65-115) mg/dL Calculated Osmolal ity (285-295) mOsm/k g Calcium (8.5-10.5) mg/dL Total Bilirubin (0.15-1.2) mg/dL AST (0-32) U/L ALT (0-33) U/L Alkaline Phosphata se (35-105) IU/L Troponin T Baselin e 6 (0-10) ng/L Troponin T 120 Min nenana (0-10) ng/L Delta Troponin T (0-10) ABS# Total Protein (6.6-8.7) g/dL Albumin (3.5-5.2) g/dL Globulin (1.3-4.6) g/dL HCG, Qual Negative (Negative) Urine Color Yellow (Yellow) Urine Appearance Clear (CLEAR) Urine pH 5.0 (5-7) Ur Specific Gravit y 1.025 (1.005-1.030) Urine Protein Neg (Negative) Urine Glucose (UA) Norm (Normal) Urine Ketones Negative (Negative) Urine Blood 2+ H (Negative) Urine Nitrate Negative (Negative) Urine Bilirubin Neg (Negative) Urine Urobilinogen Norm (Negative) mg/dL Ur Leukocyte Ibeth ase Negative (Negative) Urine RBC Rare (0-2) /hpf Urine WBC Rare (0-5) /hpf Ur Squamous Epith Cells 0-4 H (0-5) /hpf Amorphous Sediment Not Reportable Urine Bacteria Trace (NONE) /hpf Urine Mucus 1+ /hpf 10/22/20 Range/Units 20:32 WBC (4.0-10.0) 10^3/ uL RBC (4.1-5.3) 10^6/u L Hgb (11.5-15.3) g/dL Hct (37.0-47.0) % MCV (81-99) fL MCH (28.0-34.0) pg MCHC (30.0-36.0) g/dL RDW (12.1-15.1) % Plt Count (130-400) 10^3/c mm MPV (7.4-10.4) fL Neut % (Auto) % Lymph % (Auto) % [place] % (Auto) % Eos % (Auto) % Baso % (Auto) % Neut # (Auto) (1.8-7.7) 10^3/u L Lymph # (Auto) (0.8-4.8) 10^3/u L [place] # (Auto) (0.2-0.9) 10^3/u L Eos # (Auto) (0.0-0.8) 10^3/u L Baso # (Auto) (0.0-0.1) 10^3/u L Nucleated RBC % (a uto) % Nucleated RBCs # /100WBC D-Dimer (0-0.59) ug/mIFE U Sodium (136-145) mmol/L Potassium (3.5-5.1) mmol/L Chloride (98-107) mmol/L Carbon Dioxide (22-29) mmol/L Anion Gap (5-19) BUN (6-20) mg/dL Creatinine (0.5-0.9) mg/dL GFR Calculation (90-130) mL/min Glucose (65-115) mg/dL Calculated Osmolal ity (285-295) mOsm/k g Calcium (8.5-10.5) mg/dL Total Bilirubin (0.15-1.2) mg/dL AST (0-32) U/L ALT (0-33) U/L Alkaline Phosphata se (35-105) IU/L Troponin T Baselin e (0-10) ng/L Troponin T 120 Min nenana 6.00 (0-10) ng/L Delta Troponin T 0 (0-10) ABS# Total Protein (6.6-8.7) g/dL Albumin (3.5-5.2) g/dL Globulin (1.3-4.6) g/dL HCG, Qual (Negative) Urine Color (Yellow) Urine Appearance (CLEAR) Urine pH (5-7) Ur Specific Gravit y (1.005-1.030) Urine Protein (Negative) Urine Glucose (UA) (Normal) Urine Ketones (Negative) Urine Blood (Negative) Urine Nitrate (Negative) Urine Bilirubin (Negative) Urine Urobilinogen (Negative) mg/dL Ur Leukocyte Ibeth ase (Negative) Urine RBC (0-2) /hpf Urine WBC (0-5) /hpf Ur Squamous Epith Cells (0-5) /hpf Amorphous Sediment Urine Bacteria (NONE) /hpf Urine Mucus /hpf Imaging Data^: CXR: Attestation: I personally reviewed and interpreted this imaging study as follows: My impression: No acute findings. CT Chest: Attestation: I personally reviewed and interpreted this imaging study as follows: Radiologist's impression: [address] [address] [address] Scan Report Signed Patient: Tess Joseph Unit #: [id number] : 1980 Age/Sex: 40 / F ADM Date: 10/22/20 Loc: ER Room/Bed: Attending Dr: Ordering Provider/Ordering MD: David Garcia Date of Service: 10/22/20 Procedure(s): CT angio chest PE protcl [id number] Accession Number(s): [id number] Report Number: [id number] PROCEDURE INFORMATION: Exam: CT Angiography Chest With Contrast Exam date and time: 10/22/2020 7:57 PM Age: 40 years old Clinical indication: Pain and abnormal findings; Abnormal diagnostic tests; Elevated d-dimer; Chest pain; Additional info: Cp and elevated d dimer TECHNIQUE: Imaging protocol: Computed tomographic angiography of the chest with intravenous contrast. 3D rendering (Not supervised by radiologist): MIP and/or 3D reconstructed images were created by the technologist. Radiation optimization: All CT scans at this facility use at least one of these dose optimization techniques: automated exposure control; mA and/or kV adjustment per patient size (includes targeted exams where dose is matched to clinical indication); or iterative reconstruction. Contrast material: OMNI 350; Contrast volume: 85 ml; Contrast route: INTRAVENOUS (IV); COMPARISON: CR XR chest 1V portable [id number] 10/22/2020 7:05 PM RADIATION DOSE METRICS: Total DLP (mGy-cm): 380.53 FINDINGS: Pulmonary arteries: The pulmonary arteries are adequately opacified for evaluation to the subsegmental level. There is no filling defect to suggest embolism. Aorta: The aorta is unremarkable. There is no aneurysm. Lungs: Lungs are clear. Pleural spaces: There is no pleural effusion or pneumothorax. Heart: The heart is unremarkable. There is no pericardial effusion. Lymph nodes: Unremarkable. No enlarged lymph nodes. Bones/joints: Bones are unremarkable. Soft tissues: The extrathoracic soft tissues are unremarkable. Other findings: Visible structures in the upper abdomen are unremarkable. CT/CT angio chest PE protcl [id number] IMPRESSION: No pulmonary embolism. Radiation Dose CTDIVOL = (mGy): DLP = 380.53 (mGy-cm) Dictated By: Von Hennessy MD Signed By: Von Hennessy MD Signed Date/Time: 10/22/202057 DD/ 56 Vascular: Attestation: I personally reviewed and interpreted this imaging study as follows: Radiologist's impression: Ultrasound venous duplex of left lower extremity?prelim report?no DVTs or blood clots seen. EKG Data^: EKG 1: Attestation: I personally reviewed and interpreted this EKG as follows: EKG interpretation date: 10/22/20 Interpretation: Normal sinus rhythm, 60 bpm, no ST segment elevation or depression seen. Discharge Plan Discharge Patient Disposition: Home Clinical Impression: Non-cardiac chest pain Condition: Stable Prescriptions: No Action Zyrtec 10 mg capsule 10 mg PO DAILY PRN (Reason: allergies) RF: 0 pantoprazole [Protonix] 40 mg tablet,delayed release (DR/EC) 40 mg PO DAILY@1000 RF: 0 venlafaxine [Effexor XR] 150 mg capsule,extended release 24hr 150 mg PO DAILY@1000 RF: 0 promethazine 25 mg tablet 25 mg PO Q6H PRN (Reason: n/v) RF: 0 tizanidine 4 mg tablet 4 mg PO BID PRN (Reason: muscle spasticity) Qty: 60 RF: 0 hydrocodone-acetaminophen 5-325 mg tablet 1 tab PO BID MDD 2 PRN (Reason: severe pain (scale score 7-10)) 30 Days Qty: 60 RF: 0 metaxalone 800 mg tablet 800 mg PO TID PRN (Reason: muscle spasms) RF: 0 medroxyprogesterone 2.5 mg tablet 2.5 mg PO DAILY@2199 RF: 0 estradiol 1 mg tablet 1.5 mg PO DAILY@2199 RF: 0 topiramate 100 mg tablet 100 mg PO BID@999,1999 RF: 0 Aspir-81 81 mg Tablet,Delayed Release (Dr/Ec) 81 mg PO DAILY@999 RF: 0 Vitamin D2 1,250 mcg (50,000 unit) capsule 1,250 mcg PO Q7D RF: 0 budesonide-formoterol 80-4.5 mcg/actuation Hfa Aerosol Inhaler 2 puff INHALATION BID@999,1999 RF: 0 Discharge Orders: Discharge ED (Routine); Ordered 10/22/20 Ordered By: David Garcia Referrals: Felicity Muro DO [Primary Care Provider] - Discharge Diet: Regular Discharge Activity: Resume usual activity Patient Instructions: Noncardiac Chest Pain (ED) Activity Restrictions/Additional Instructions: Follow-up with medical provider as directed in 7 to 10 days for reevaluation. Continue taking all home medications as previously prescribed. Return to the ER or your medical provider if condition worsens. Please read and understand discharge instructions. If any questions, please ask. Coding Level of Care Code ED Computer Analyst for Gonzalo Fwanupam Exam Comprehensive
[2020-10-22 19:02] LABS: Basophils # 0.1 10^3/uL (0.0-0.1); Basophils % 0.7 %; Eosinophils # 0.3 10^3/uL (0.0-0.8); Eosinophils % 3.4 %; Hematocrit 40.6 % (37.0-47.0); Hemoglobin 13.3 g/dL (11.5-15.3); Lymphocytes # 2.4 10^3/uL (0.8-4.8); Lymphocytes % 31.2 %; Mean Corpuscular HGB Conc 32.8 g/dL (30.0-36.0); Mean Corpuscular Hemoglobin 30.4 pg (28.0-34.0); Mean Corpuscular Volume 92.7 fL (81-99); Mean Platelet Volume 10.5 fL (7.4-10.4); Monocytes # 0.5 10^3/uL (0.2-0.9); Monocytes % 5.9 %; Neutrophils # 4.42 10^3/uL (1.8-7.7); Neutrophils % 58.4 %; Nucleated Red Blood Cells % 0 %; Platelet Count 230 10^3/cmm (130-400); Red Blood Count 4.38 10^6/uL (4.1-5.3); White Blood Count 7.6 10^3/uL (4.0-10.0)
[2020-10-22 19:20] LABS: D Dimer 0.69 ug/mIFEU (0-0.59)
[2020-10-22 19:23] LABS: Alanine Aminotransferase 10 U/L (0-33); Albumin Level 4.6 g/dL (3.5-5.2); Alkaline Phosphatase 98 IU/L (35-105); Anion Gap 15.8 (5-19); Aspartate Amino Transferase 12 U/L (0-32); Blood Urea Nitrogen 13 mg/dL (6-20); Calcium 9.7 mg/dL (8.5-10.5); Carbon Dioxide 23 mmol/L (22-29); Chloride 106 mmol/L (98-107); Globulin 2.5 g/dL (1.3-4.6); Glomerular Filtration Rate 110.7 mL/min (90-130); Glucose 82 mg/dL (65-115); Osmolality Calculated 291 mOsm/kg (285-295); Potassium 3.8 mmol/L (3.5-5.1); Sodium 141 mmol/L (136-145); Total Bilirubin 0.2 mg/dL (0.15-1.2); Total Protein 7.1 g/dL (6.6-8.7)
[2020-10-22 19:25] LABS: Troponin(5th) Baseline 6 ng/L (0-10)
[2020-10-22 19:28] LABS: HCG, Serum Qual Negative (Negative)
--- NOTE | 2020-10-22 19:51 | USCV_ITS ---
Opal Summer Age: 40 Gender: F : 1980 Exam Date: 10/22/2020 20:05 Ordering Phys: David Garcia Technologist: Eris Winn Exam Location: [facility] [place]_ Indication: LT LEG PAIN AND SWELLING HISTORY: Lower extremity swelling. PROCEDURES: Venous duplex imaging was performed in only the left lower extremity. The following venous structures were evaluated: common femoral vein, profunda vein, proximal portion of the greater saphenous vein, superficial femoral vein, and the popliteal vein. In addition, the posterior tibial and peroneal trunk were evaluated. FINDINGS: Normal 2-D Doppler and augmentation and compressibility throughout the lower extremity venous structures. Additional imaging through the proximal calf veins also reveals no thrombus. Limited evaluation of the greater saphenous vein is patent with no thrombus.. CONCLUSIONS No evidence of left lower extremity DVT. Chencho Conteh MD (Electronically Signed) Final Date: 23 October 2020 11:02 S
--- NOTE | 2020-10-22 19:52 | CTR_ITS ---
PROCEDURE INFORMATION: Exam: CT Angiography Chest With Contrast Exam date and time: 10/22/2020 7:57 PM Age: 40 years old Clinical indication: Pain and abnormal findings; Abnormal diagnostic tests; Elevated d-dimer; Chest pain; Additional info: Cp and elevated d dimer TECHNIQUE: Imaging protocol: Computed tomographic angiography of the chest with intravenous contrast. 3D rendering (Not supervised by radiologist): MIP and/or 3D reconstructed images were created by the technologist. Radiation optimization: All CT scans at this facility use at least one of these dose optimization techniques: automated exposure control; mA and/or kV adjustment per patient size (includes targeted exams where dose is matched to clinical indication); or iterative reconstruction. Contrast material: OMNI 350; Contrast volume: 85 ml; Contrast route: INTRAVENOUS (IV); COMPARISON: CR XR chest 1V portable [id number] 10/22/2020 7:05 PM RADIATION DOSE METRICS: Total DLP (mGy-cm): 380.53 FINDINGS: Pulmonary arteries: The pulmonary arteries are adequately opacified for evaluation to the subsegmental level. There is no filling defect to suggest embolism. Aorta: The aorta is unremarkable. There is no aneurysm. Lungs: Lungs are clear. Pleural spaces: There is no pleural effusion or pneumothorax. Heart: The heart is unremarkable. There is no pericardial effusion. Lymph nodes: Unremarkable. No enlarged lymph nodes. Bones/joints: Bones are unremarkable. Soft tissues: The extrathoracic soft tissues are unremarkable. Other findings: Visible structures in the upper abdomen are unremarkable. CT/CT angio chest PE protcl [id number] IMPRESSION: No pulmonary embolism. Radiation Dose CTDIVOL = (mGy): DLP = 380.53 (mGy-cm)
--- NOTE | 2020-10-22 20:26 | ECG_ITS ---
[facility] Test Date: 2020-10-22 Pat Name: Tess Joseph Department: Room: Gender: Female Cook Jelly: : 1980 Requested By: David Garcia Order Number: [id number] Stallworth MD: Spring Mcghee M.D. Measurements Intervals Leon Rate: 68 P: 70 NH: 153 QRS: 61 QRSD: 82 T: 57 QT: 405 QTc: 431 Interpretive Statements SINUS RHYTHM POSSIBLE RIGHT VENTRICULAR CONDUCTION DELAY [RSR (QR) IN V1/V2] Compared to ECG 05/21/2020 19:34:33 No significant changes Electronically Signed On 10-23-2020 22:27:27 GRADUATE STUDIES DEAN by Spring Mcghee M.D. [id number]
[2020-10-22 20:42] LABS: Bilirubin Urine Neg (Negative); Blood Urine 2+ (Negative); Glucose Urine UA Norm (Normal); Ketones Urine Negative (Negative); Leukocyte Esterase Urine Negative (Negative); Nitrate Urine Negative (Negative); Protein Urine Neg (Negative); Specific Gravity, Urine 1.025 (1.005-1.030); Urine Appearance Clear (CLEAR); Urine Color Yellow (Yellow); Urobilinogen Urine Norm (Negative)
[2020-10-22] MEDS: iohexol 350 mg/mL 100 mL Btl IV (20:42)
[2020-10-22 20:48] LABS: Add Urine Culture? No; Bacteria Urine TRACE /hpf; Mucus Urine 1+ /hpf; RBC Urine RARE /hpf (0-2); Squamous Epithelial Cell Urine 0-4 /hpf (0-5); WBC Urine RARE /hpf (0-5)
[2020-10-22 20:57] LABS: Troponin 5 2HR Delta 0 ABS# (0-10)
--- NOTE | 2020-10-22 20:58 | PC.NURSE ---
EKG done at 2054 and shown to SIRISHA NOWAK
== END 2020-10-22 21:41 | disposition home or self-care (01) ==
PROVIDERS: Emergency Provider Physician Assistant; PCP Internal Medicine
DX: R07.89 Other chest pain (principal); Z79.82 Long term (current) use of aspirin; F17.210 Nicotine dependence, cigarettes, uncomplicated
CPT/HCPCS: 12345; 71045; 71275; 80053; 81001; 84484; 84703; 85025; 85378; 93005; 93971; 99283; Q9967

== ENCOUNTER → 2020-10-26 12:05 | Outpatient (BNVA) | payer OTHER, MEDICAID, SELFPAY | PROVIDERS: PCP Internal Medicine; Visit Provider Specialist | DX: R20.0 Anesthesia of skin (principal); R20.2 Paresthesia of skin; M79.10 Myalgia, unspecified site; R51.9 Headache, unspecified; M54.2 Cervicalgia; G89.29 Other chronic pain; E55.9 Vitamin D deficiency, unspecified; F17.210 Nicotine dependence, cigarettes, uncomplicated | CPT/HCPCS: 95886; 95909 ==

== ENCOUNTER → 2020-12-14 14:09 | Outpatient (BNVA) | payer OTHER, MEDICAID, SELFPAY | PROVIDERS: PCP Internal Medicine; Visit Provider Obstetrics & Gynecology | DX: N89.8 Other specified noninflammatory disorders of vagina; E89.40 Asymptomatic postprocedural ovarian failure | CPT/HCPCS: 87210 ==

== ENCOUNTER 2020-12-25 14:54 | Outpatient (CLI) | payer OTHER, MEDICAID, SELFPAY ==
--- NOTE | 2020-12-25 15:00 | MM_ITS ---
WS: [id number] BILATERAL DIGITAL SCREENING MAMMOGRAM WITH CAD CLINICAL INFORMATION: Z12.39 - Encounter for other screening for malignant neoplasm of breast HISTORY: Screening mammogram. No current complaints. COMPARISON: TECHNIQUE: Bilateral CC and MLO. FINDINGS: The breast are composed of extremely dense tissue, which can limit the detection of small underlying mass lesions. No suspicious focal mass, asymmetry, calcifications, or architectural distortion. No ev idence of malignancy. A few tiny punctate calcifications. MM/[place] [id number] IMPRESSION: BI-RADS: 2-Benign FOLLOW UP: 1 Year Follow-up Recommend return to annual screening mammography.
== END 2020-12-25 14:55 | disposition home or self-care (01) ==
LOC: RADSHAW 14:57
PROVIDERS: PCP Internal Medicine; Visit Provider Obstetrics & Gynecology
DX: Z12.31 Encounter for screening mammogram for malignant neoplasm of breast (principal)
CPT/HCPCS: 77067

== ENCOUNTER 2021-01-04 12:58 | Outpatient (CLI) | payer OTHER, MEDICAID, SELFPAY ==
--- NOTE | 2021-01-04 13:09 | XR_ITS ---
WS: [id number] PROCEDURE: XR chest 2V* [id number] CLINICAL INFORMATION: COUGH X'S 3 MONTHS, POST COVID, SMOKER, HX OF TB COMPARISON: October 22, 2020 FINDINGS: Heart: Normal cardiac silhouette. Lungs: Lungs are clear. No consolidation or pleural fluid. Hyperinflation. Calcified hilar nodes. Bones: Normal visualized bony structures. XR/XR chest 2V* [id number] IMPRESSION: No acute chest findings.
== END 2021-01-04 12:59 | disposition home or self-care (01) ==
PROVIDERS: PCP Internal Medicine; Visit Provider Internal Medicine
DX: R05 Cough (principal); F17.210 Nicotine dependence, cigarettes, uncomplicated; Z86.16 Personal history of COVID-19
CPT/HCPCS: 71046

== ENCOUNTER 2021-07-06 11:44 | Outpatient (CLI) | payer OTHER, MEDICAID, SELFPAY ==
--- NOTE | 2021-07-06 11:57 | XR_ITS ---
WS: [id number] CHEST 2 VIEWS HISTORY: SHORTNESS OF BREATH COMPARISON: 01/04/2021 Lungs: Clear with no abnormality. No pleural effusion or pneumothorax. Cardiac size: Normal. Mediastinum/Aorta: Normal mediastinum. Bones: Normal. XR/XR chest 2V* [id number] IMPRESSION: Normal chest.
== END 2021-07-06 11:45 | disposition home or self-care (01) ==
LOC: RAD 11:54
PROVIDERS: PCP Internal Medicine; Visit Provider Nurse Practitioner Family
DX: R06.02 Shortness of breath (principal); J32.9 Chronic sinusitis, unspecified
CPT/HCPCS: 71046

== ENCOUNTER 2021-08-28 01:54 | Emergency (ER) | payer OTHER, MEDICAID, SELFPAY ==
[2021-08-28 02:01] VITALS: BP 110/68; PULSE 100; RESP 18; TEMP 36.6; O2SAT 99
[2021-08-28 02:33] LABS: Basophils # 0.1 10^3/uL (0.0-0.1); Basophils % 1.1 %; Eosinophils # 0.7 10^3/uL (0.0-0.8); Eosinophils % 6.9 %; Hemoglobin 12.9 g/dL (11.5-15.3); Lymphocytes # 3.7 10^3/uL (0.8-4.8); Lymphocytes % 36.9 %; Mean Corpuscular HGB Conc 33.1 g/dL (30.0-36.0); Mean Corpuscular Hemoglobin 30.4 pg (28.0-34.0); Mean Corpuscular Volume 91.8 fl (81-99); Monocytes # 0.8 10^3/uL (0.2-0.9); Monocytes % 7.5 %; Neutrophils % 47.3 %; Nucleated Red Blood Cells % 0 %; Platelet Count 218 10^3/cmm (130-400); Red Blood Count 4.25 10^6/uL (4.1-5.3); Red Cell Distribution Width 12.8 % (12.1-15.1); White Blood Count 10.1 10^3/uL (4.0-10.0)
[2021-08-28 02:52] LABS: Troponin(5th) Baseline 6 ng/L (0-10)
[2021-08-28 02:53] LABS: Anion Gap 17.3 (5-19); Blood Urea Nitrogen 10 mg/dL (6-20); Calcium 8.5 mg/dL (8.5-10.5); Carbon Dioxide 20 mmol/L (22-29); Chloride 104 mmol/L (98-107); Glomerular Filtration Rate 110.2 mL/min (90-130); Glucose 109 mg/dL (65-115); Osmolality Calculated 286 mOsm/kg (285-295); Potassium 3.3 mmol/L (3.5-5.1); Sodium 138 mmol/L (136-145)
--- NOTE | 2021-08-28 03:03 | W.ED.ARRPALP ---
HPI - Arrhythmia/Palpitations General: Chief Complaint: Arrhythmia/Palpitations Stated Complaint: Heart Palpatations Time Seen by Provider: 08/28/21 02:33 History of Present Illness: HPI narrative: 41-year-old female complains of palpitations that started sometime around 1230 she says she was sitting playing games on her phone when it happened. Her heart rate went up to 143 via pulse ox at home. She never really had any chest pain per se. She felt dizzy and weak though. No significant shortness of breath. No long car trips recently in the last week or so. No swelling of her feet. 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 Diverticulosis Endometriosis Previously diagnosed with endometriosis by laparoscopy. Definitively treated with LAVH and BSO on 07/04/2017. Grade III internal hemorrhoids History of gestational diabetes Diagnosed in third in 2014. Urinary, incontinence, stress female Surgical History History of cholecystectomy (~11/2013) Laparoscopic. Performed at [facility] History of hysterectomy (07/04/17) LAVH/BSO. Dx: Endometriosis, Chronic pelvic pain, Right ovarian cyst. Performed by Dr. Swenson at [facility] in [place], [place]. Final diagnosis: Right mucinous cystadenoma. History of laparoscopy (~2003) Treatment of endometriosis. Performed by Dr. Shane at [facility]. History of laparoscopy (~2004) Treatment of endometriosis. Performed by Dr. Shane at [facility]. Status post colonoscopy Family History Father Hypertension Prostate cancer Grandfather Heart disease PATERNAL Colon cancer PATERNAL Lung cancer MATERNAL Bleeding disorder Grandmother Heart disease PATERNAL Breast cancer PATERNAL Family/Other Diabetes MATERNAL AUNT Breast cancer PATERNAL AUNT Ovarian cancer PATERNAL COUSIN Leukemia Maternal Aunt Mother Lung cancer Denies family history of Anesthesia complication Social History Alcohol intake: current Alcohol intake frequency: holidays/special occasions only Marital status: Physical Exam Const: COMMON NORMALS: no acute distress, patient oriented x3 and alert GENERAL APPEARANCE: not ill appearing HENMT: COMMON NORMALS: normocephalic HEAD & SCALP: normocephalic Eye: COMMON NORMALS: Equal, round and reactive pupils present and EOMs intact bilaterally PUPIL: Yes Equal, round and reactive pupils present Chest: COMMONS NORMALS: normal inspection of the chest Resp: COMMON NORMALS: normal respiratory effort, No use of accessory muscles and clear to auscultation bilaterally AUSCULTATION: clear to auscultation bilaterally Cardio: COMMON NORMALS: regular rate, regular rhythm and No murmurs present (Cardio) RATE: regular rate RHYTHM: regular rhythm GI: COMMON NORMALS: Normal to inspection, nondistended, normoactive bowel sounds present Extremity: COMMON NORMALS: no pedal edema Neuro: COMMON NORMALS: patient oriented x3 SENSORIUM/ORIENTATION: Yes alert Course Vital Signs: Vital signs: Vital Signs Temperature 97.8 F 08/28/21 02:01 Pulse Rate 100 08/28/21 02:01 Respiratory Rate 18 08/28/21 02:01 Blood Pressure 110/68 08/28/21 02:01 Pulse Oximetry 99 08/28/21 02:01 MDM - Arrhythmia/Palpitations MDM Narrative: Medical decision making narrative: 41-year-old female with a history of palpitations at home. White blood cell count is 10. Potassium is 3.3. Bicarbonate level is 20. Chest x-ray is negative. Baseline troponin is 6. EKG shows a sinus rhythm with a rate of 80, normal axis, right ventricular conduction delay, no definite acute ST changes. Lab Data: Labs: Lab Results 08/28/21 08/28/21 08/28/21 02:22 02:22 02:22 WBC 10.1 10^3/uL H 10 ^3/uL (4.0-10.0) RBC 4.25 10^6/uL 10^6 /uL (4.1-5.3) Hgb 12.9 g/dL g/dL (11.5-15.3) Hct 39.0 % % (37.0-47.0) MCV 91.8 fl fl (81-99) MCH 30.4 pg pg (28.0-34.0) MCHC 33.1 g/dL g/dL (30.0-36.0) RDW 12.8 % % (12.1-15.1) Plt Count 218 10^3/cmm 10^3 /cmm (130-400) MPV 11.0 fL H fL (7.4-10.4) Neut % (Auto) 47.3 % % Lymph % (Auto) 36.9 % % Gonzales % (Auto) 7.5 % % Eos % (Auto) 6.9 % % Baso % (Auto) 1.1 % % Neut # (Auto) 4.80 10^3/uL 10^3 /uL (1.8-7.7) Lymph # (Auto) 3.7 10^3/uL 10^3/ uL (0.8-4.8) Gonzales # (Auto) 0.8 10^3/uL 10^3/ uL (0.2-0.9) Eos # (Auto) 0.7 10^3/uL 10^3/ uL (0.0-0.8) Baso # (Auto) 0.1 10^3/uL 10^3/ uL (0.0-0.1) Nucleated RBC % (a uto) 0 % % Nucleated RBCs # 0.0 /100WBC /100W BC Sodium 138 mmol/L mmol/L (136-145) Potassium 3.3 mmol/L L mmol /L (3.5-5.1) Chloride 104 mmol/L mmol/L (98-107) Carbon Dioxide 20 mmol/L L mmol/ L (22-29) Anion Gap 17.3 (5-19) BUN 10 mg/dL mg/dL (6-20) Creatinine 0.6 mg/dL mg/dL (0.5-0.9) GFR Calculation 110.2 mL/min mL/m in (90-130) Glucose 109 mg/dL mg/dL (65-115) Calculated Osmolal ity 286 mOsm/kg mOsm/ kg (285-295) Calcium 8.5 mg/dL mg/dL (8.5-10.5) Troponin T Baselin e 6 ng/L ng/L (0-10) TSH 08/28/21 02:22 WBC RBC Hgb Hct MCV MCH MCHC RDW Plt Count MPV Neut % (Auto) Lymph % (Auto) Gonzales % (Auto) Eos % (Auto) Baso % (Auto) Neut # (Auto) Lymph # (Auto) Gonzales # (Auto) Eos # (Auto) Baso # (Auto) Nucleated RBC % (a uto) Nucleated RBCs # Sodium Potassium Chloride Carbon Dioxide Anion Gap BUN Creatinine GFR Calculation Glucose Calculated Osmolal ity Calcium Troponin T Baselin e TSH 2.67 uIU/mL uIU/m L (0.27-4.20) Discharge Plan Discharge Patient Disposition: Home Clinical Impression: Palpitations, Acute hypokalemia Condition: Stable Prescriptions: No Action Zyrtec 10 mg capsule 10 mg PO DAILY PRN (Reason: allergies) RF: 0 pantoprazole [Protonix] 40 mg tablet,delayed release (DR/EC) 40 mg PO DAILY@1000 RF: 0 venlafaxine [Effexor XR] 150 mg capsule,extended release 24hr 150 mg PO DAILY@1000 RF: 0 promethazine 25 mg tablet 25 mg PO Q6H PRN (Reason: n/v) RF: 0 tizanidine 4 mg tablet 4 mg PO BID PRN (Reason: muscle spasticity) Qty: 60 RF: 0 hydrocodone-acetaminophen 5-325 mg tablet 1 tab PO BID MDD 2 PRN (Reason: severe pain (scale score 7-10)) 30 Days Qty: 60 RF: 0 estradiol 1 mg tablet 1.5 mg PO DAILY@2200 Qty: 30 RF: 12 medroxyprogesterone 2.5 mg tablet 2.5 mg PO DAILY@2200 Qty: 30 RF: 12 estradiol [Yuvafem] 10 mcg tablet 10 mcg vaginal .COMPLEX 14 Days Qty: 8 RF: 12 topiramate 100 mg tablet See Rx Instructions .ROUTE .COMPLEX Qty: 180 RF: 0 metaxalone 800 mg tablet 800 mg PO TID PRN (Reason: muscle spasms) RF: 0 Aspir-81 81 mg Tablet,Delayed Release (Dr/Ec) 81 mg PO DAILY@1000 RF: 0 Vitamin D2 1,250 mcg (50,000 unit) capsule 1,250 mcg PO Q7D RF: 0 Discharge Orders: Discharge ED (Routine); Ordered 08/28/21 Ordered By: Thong Jimenez Referrals: Felicity Muro DO [Primary Care Provider] - 4-7 days Patient Instructions: Heart Palpitations (ED), Hypokalemia (ED) Activity Restrictions/Additional Instructions: Return for repeated episodes of palpitations, chest discomfort, shortness of breath, any other concerning symptoms. Follow-up with your doctor. They may want to recheck your potassium level at some point. Coding Level of Care Code ED Vp [employer] for Chg Fwd Exam Comprehensive
--- NOTE | 2021-08-28 03:22 | XRR_ITS ---
PROCEDURE INFORMATION: Exam: XR Chest Exam date and time: 08/28/2021 3:22 AM Age: 41 years old Clinical indication: Pain; Patient HX: C/O heart palpitations. TECHNIQUE: Imaging protocol: XR of the chest. Views: 1 view. Total images: 1 COMPARISON: CR XR chest 2V* [id number] 07/06/2021 12:02 PM FINDINGS: Lungs: Unremarkable. No consolidation. Pleural spaces: Unremarkable. No pleural effusion. No pneumothorax. Heart/Mediastinum: Unremarkable. No cardiomegaly. Bones/joints: Unremarkable. XR/XR chest 1V portable [id number] IMPRESSION: No acute findings. Radiation Dose CTDIVOL = (mGy): DLP = (mGy-cm)
[2021-08-28 03:35] LABS: Thyroid Stimulating Hormone 2.67 uIU/mL (0.27-4.20)
[2021-08-28 03:36] VITALS: BP 108/69; PULSE 77; RESP 16; O2SAT 98
[2021-08-28] MEDS: potassium chloride ER 20 mEq Tablet 40 MEQ PO (04:07)
== END 2021-08-28 04:18 | disposition home or self-care (01) ==
PROVIDERS: Emergency Provider Emergency Medicine; PCP Internal Medicine
DX: R00.2 Palpitations (principal); E87.6 Hypokalemia; Z79.82 Long term (current) use of aspirin
CPT/HCPCS: 71045; 80048; 84443; 84484; 85025; 99283

== ENCOUNTER 2022-01-11 11:14 | Outpatient (CLI) | payer OTHER, MEDICAID, SELFPAY ==
--- NOTE | 2022-01-11 11:21 | MM_ITS ---
WS: [id number] VIEWS: MLO and CC views both breasts. 3D digital tomosynthesis is also included in this exam. Comparison made with prior exam of 09/08/2010, 05/24/2019, 12/25/2020.. Findings: There was no sign of mass, architectural distortion or suspicious calcification in either breast. He terogeneously dense MM/[place] [id number] Impression: BI-RADS: 2-Benign FOLLOW-UP: 1 Year Follow-up This mammogram was also analyzed by the Computer Aided Detection System R2 Imag e Counter Tender.
== END 2022-01-11 11:15 | disposition home or self-care (01) ==
LOC: RAD 11:17
PROVIDERS: PCP Nurse Practitioner Family; Visit Provider Obstetrics & Gynecology
DX: Z12.31 Encounter for screening mammogram for malignant neoplasm of breast (principal)
CPT/HCPCS: 77063; 77067

== ENCOUNTER → 2022-03-10 11:25 | Outpatient (BNVA) | payer OTHER, MEDICAID, SELFPAY | PROVIDERS: PCP Nurse Practitioner Family; Referring Provider Family Medicine; Visit Provider Specialist | DX: G43.711 Chronic migraine without aura, intractable, with status migrainosus (principal); F41.9 Anxiety disorder, unspecified | CPT/HCPCS: 99204 ==

== ENCOUNTER 2022-03-15 08:04 | Outpatient (CLI) | payer OTHER, MEDICAID, SELFPAY ==
--- NOTE | 2022-03-15 08:28 | US_ITS ---
WS: [id number] ULTRASOUND SOFT TISSUES LEFT perineum. HISTORY: MASS OF SOFT TISSUE COMPARISON: None available. TECHNIQUE: 2-D and color Doppler imaging is submitted. Patient directed ultrasound to the LEFT perineal region. There is a soft tissue mass which is nearly isoechoic to the adjacent soft tissue structures. This mass measures 2.6 x 1.9 x 1.9 cm. There is no increased vascularity. No fluid content. No increased through transmission. No adjacent fluid. US/US soft tissue/extremity [id number] IMPRESSION: Isoechoic soft tissue mass in the LEFT perineum corresponds to the palpable abn ormality. This is a very nonspecific mass. No fluid or increased vascularity. T his may be a benign lipoma. For further evaluation surgical excision may be nec essary.
== END 2022-03-15 08:05 | disposition home or self-care (01) ==
PROVIDERS: PCP Nurse Practitioner Family; Visit Provider Family Medicine
DX: R22.9 Localized swelling, mass and lump, unspecified (principal)
CPT/HCPCS: 76882

== ENCOUNTER → 2022-03-16 10:47 | Outpatient (BNVA) | payer OTHER, MEDICAID, SELFPAY | PROVIDERS: PCP Nurse Practitioner Family; Visit Provider Otolaryngology | DX: B37.0 Candidal stomatitis (principal); F17.210 Nicotine dependence, cigarettes, uncomplicated | CPT/HCPCS: 99203 ==

== ENCOUNTER 2022-05-28 21:33 | Inpatient (IN) | payer OTHER, MEDICAID, SELFPAY ==
[2022-05-28 22:02] VITALS: BP 119/83; PULSE 77; RESP 20; TEMP 36.6; O2SAT 99; BMI 27.4
--- NOTE | 2022-05-28 22:08 | XRR_ITS ---
PROCEDURE INFORMATION: Exam: XR Right Tibia and Fibula Exam date and time: 05/28/2022 10:51 PM Age: 42 years old Clinical indication: Injury or trauma; Fracture, traumatic; Displaced; Ankle; Right; Not specified; Injury date: 05/28/2022; Injury details: Fall while rollerskating TECHNIQUE: Imaging protocol: Radiologic exam of the Right tibia and fibula. Views: 2 views. COMPARISON: US soft tissue/extremity [id number] 03/15/2022 8:47 AM FINDINGS: Bones/joints: Distal tibial diaphyseal comminuted spiral fracture with approximately 1/4 shaft displacement. Proximal fibular metadiaphyseal oblique fracture with approximately 1/4 shaft displacement. Soft tissues: Normal. XR/XR tibia fibula RT 2V [id number] IMPRESSION: 1. Distal tibial diaphyseal comminuted spiral fracture with approximately 1/4 shaft displacement. 2. Proximal fibular metadiaphyseal oblique fracture with approximately 1/4 shaft displacement.
[2022-05-28 22:15] VITALS: BP 119/83; PULSE 96; RESP 19; O2SAT 99
--- NOTE | 2022-05-28 23:26 | PC.NURSE ---
patient yelling and cussing at nursing staff demanding to be taken outside, notified that we cannot take her outside due to medications given, need to monitor, and injury, and that she is being set up for moderate sedation and closed reduction. nicotine patch offered, patient refuses.
[2022-05-28 23:28] VITALS: RESP 18
[2022-05-28] MEDS: HYDROmorphone 1 mg/mL INJ 1 mL IVP (23:28)
[2022-05-28] MEDS: ondansetron 2 mg/ML SDV 2 mL 4 MG IVP (23:29)
--- NOTE | 2022-05-28 23:44 | PM.MISC ---
Miscellaneous Note Purpose of Documentation: Orthopedic consult quick note: Full consult note to follow in the morning Orthopedics contacted by emergency department pertaining to patient having trauma to right lower extremity. She is found to have a displaced and rotated right tibial shaft fracture as well as a concomitant spiral fracture of the proximal third of the fibula orthopedics was consulted for recommendations. The standpoint imaging was reviewed which confirmed oblique fracture pattern of the distal third tibial shaft with a concomitant proximal third fibular shaft fracture. Spoke with ED physician and CT scan of the right ankle being performed to rule out any posterior malleolus involvement. Given patient's young age as well as displacement and rotational deformity of the right lower extremity would would recommend patient going to the OR for right tibia suprapatellar intramedullary nail. This would correct patient's deformity but also allow for early weightbearing status. Confirmed with the ED physician patient's neurovascular intact and compartments are soft compressible. Recommend long-leg splint immobilization with a stirrup. Patient will be admitted by the hospitalist team for evaluation and preoperative clearance. Plan will be for the OR tomorrow morning. Patient to be n.p.o. at midnight. Nonweightbearing right lower extremity. Ice and elevate as needed Will have detailed discussion with patient tomorrow morning outlining the procedure as far as the risk benefits complications and alternatives to nonoperative and operative intervention. Appreciate hospitalist admission and recommendations.
--- NOTE | 2022-05-28 23:50 | CTR_ITS ---
PROCEDURE INFORMATION: Exam: CT Right Lower Extremity Without Contrast, Ankle Exam date and time: 05/29/2022 12:06 AM Age: 42 years old Clinical indication: Injury or trauma; Fall; Blunt trauma; Ankle; Right; Additional info: Right tibial shaft FX, rule out posterior malleolus FX TECHNIQUE: Imaging protocol: CT of the Right lower extremity without contrast was performed. Exam focused on the ankle. Radiation optimization: All CT scans at this facility use at least one of these dose optimization techniques: automated exposure control; mA and/or kV adjustment per patient size (includes targeted exams where dose is matched to clinical indication); or iterative reconstruction. COMPARISON: US soft tissue/extremity [id number] 03/15/2022 8:47 AM RADIATION DOSE METRICS: Total DLP (mGy-cm): 170.55 FINDINGS: Bones/joints: Distal tibial diaphyseal comminuted oblique fracture with approximately 1/4 shaft displacement. Soft tissues: Normal. CT/CT ankle RT wo con* [id number] IMPRESSION: Distal tibial diaphyseal comminuted oblique fracture with approximately 1/4 shaft displacement.
--- NOTE | 2022-05-28 23:51 | PC.NURSE ---
ambu bag at bedside connected to o2, nasal cannula placed on patient at 2l per min via nc, iv to right ac patent, suction and yankauer connected and on at continuous high, patient on cardiac monitoring, continuous pulse ox, and nibp q5m, saline infusing to iv kvo. ortho cart at bedside, supplied cut and ready for splinting. dr lewis notified that patient is ready for sedation and reduction.
--- NOTE | 2022-05-28 23:59 | PC.NURSE ---
consent signed by patient for moderate sedation and closed reduction due to patient having altering medications.
[2022-05-29] VITALS (43 sets, daily range): BP systolic 96–133; BP diastolic 59–84; PULSE 72–98; RESP 15–22; TEMP 36.2–36.8; O2SAT 92–100
--- NOTE | 2022-05-29 | XR_ITS ---
WS: [id number] INTRAOPERATIVE TECHNIQUE: 11 Spot fluoroscopic images for intraoperative purposes. FLUOROSCOPY TIME: 349 seconds CLINICAL INFORMATION: OR PICS COMPARISON: May 29, 2022 FINDINGS: Intramedullary tibial eleanor with proximal and distal screw fixation. Improved anatomic fracture alignme nt. XR/XR tibia fibula RT 2V [id number] IMPRESSION: Images obtained for intraoperative purposes.
--- NOTE | 2022-05-29 | SCC_ITS ---
Procedure done: Closed reduction and percutaneous screw fixation right ankle posterior malleolus fracture Right tibial shaft open reduction and suprapatellar intramedullary nail fixation 349.3 seconds of fluoroscopic guidance, for a cumulative dose of 6.45 mGy, was provided to Dr. Garcia by the radiology department. C-arm images of the RIGHT tibia fibula were saved for the patient's permanent record. [facility]
--- NOTE | 2022-05-29 00:28 | XRR_ITS ---
PROCEDURE INFORMATION: Exam: XR Right Tibia and Fibula Exam date and time: 05/29/2022 12:59 AM Age: 42 years old Clinical indication: Injury or trauma; Fall; Blunt trauma; Lower leg; Right; Additional info: Post reduc TECHNIQUE: Imaging protocol: Radiologic exam of the Right tibia and fibula. Views: 2 views. COMPARISON: CR XR tibia fibula RT 2V [id number] 05/28/2022 10:51 PM FINDINGS: Bones/joints: Proximal fibular metadiaphyseal fracture improved anatomic alignment with minimal persistent displacement. Distal tibial diaphyseal comminuted spiral fracture demonstrates improved anatomic alignment with persistent approximately 1/4 shaft displacement. Soft tissues: Splint material about the lower extremity. XR/XR tibia fibula RT 2V [id number] IMPRESSION: 1. Proximal fibular metadiaphyseal fracture improved anatomic alignment with minimal persistent displacement. 2. Distal tibial diaphyseal comminuted spiral fracture demonstrates improved anatomic alignment with persistent approximately 1/4 shaft displacement. 3. Splint material about the lower extremity.
--- NOTE | 2022-05-29 01:00 | PC.NURSE ---
x ray at bedside to confirm closed reduction of right tibial fracture
[2022-05-29] MEDS: midazolam 1 mg/mL INJ 5 ML IV (01:11)
--- NOTE | 2022-05-29 01:52 | PC.NURSE ---
patient yelling at staff, stating that right lower leg is in extreme pain, and repeatedly asking to be allowed to go outside. patient assisted to position of comfort, notified that due to injury and need to monitor after med administration it is highly discouraged to go outside, dr lewis notified of uncontrolled pain and hostility. awaiting new orders.
[2022-05-29] MEDS: HYDROmorphone 1 mg/mL INJ 1 mL IVP ×3 (01:56→04:46)
[2022-05-29] MEDS: fentaNYL 50 mcg/mL INJ 2mL 75 MCG IVP (02:00)
[2022-05-29] MEDS: nicotine 21 mg Patch 1 PATCH TRANSDERMA (02:02)
--- NOTE | 2022-05-29 02:10 | PC.NURSE ---
patient states that she is now agreeable to nicotine patch if she cannot be taken outside. see mar.
--- NOTE | 2022-05-29 02:22 | PC.NURSE ---
report called at this time to [facility], accepted to room 0217.
[2022-05-29] MEDS: ondansetron 2 mg/ML SDV 2 mL 4 MG IVP (03:04)
--- NOTE | 2022-05-29 03:14 | PM.HP ---
Providers/Chief Complaint Admitting Physician: Kristy Rizo MD Primary Care Provider: Ramya Messer DO Chief Complaint: LEG PAIN History of Present Illness Summer Lia Joseph is a 42 year old female who was rollerskating with her family, lost her balance, and heard a loud noise/pop from her right leg when she twisted her right foot that prompted her visit to the ER. Patient is stating that there was another kid who just fell in front of her and she was just trying to avoid hitting that kid and at that time she twisted her right foot when she heard that loud noise/pop. She has been diagnosed with minimally displaced fracture of tibia and fibula, her leg was put in a splint, Dr. Garcia was consulted who recommended admission to hospitalist team. Patient is a smoker smokes almost a pack a day. Patient is stating that she never had any complications with anesthesia before. She requires Benadryl with opioids. She received fentanyl and Dilaudid however was requiring Dilaudid almost every hour Review of Systems Const: Denies: fever(s) Eyes: Denies: change in vision ENMT: Denies: throat pain Card: Denies: chest pain Resp: Denies: dyspnea GI: Denies: abdominal pain : Denies: flank pain Musc: Reports: back pain, joint pain and joint swelling Skin/Breast: Denies: rash Neuro: Denies: headache(s) Psych: Denies: anxiety Endo: Denies: polyuria Jd/Lymph: Denies: easy bruising All/Imm: Denies: urticaria Medications/Allergies Home Medications Medication Instructions Recorded Confirmed Last Taken Type pantoprazole 40 mg tablet,delayed 40 mg PO DAILY@1000 10/23/19 03/10/22 10/22/20 History release (Protonix) promethazine 25 mg tablet 25 mg PO Q6H PRN n/v 10/23/19 03/16/22 Unknown History venlafaxine 150 mg 150 mg PO DAILY@99910/23/19 03/16/22 10/22/20 History capsule,extended release 24 hr (Effexor XR) cetirizine 10 mg capsule (Zyrtec) 10 mg PO DAILY PRN allergies 11/07/19 03/16/22 05/21/20 History tizanidine 4 mg tablet 4 mg PO BID PRN muscle spasticity 04/15/20 03/16/22 Unknown Rx #60 tabs ergocalciferol (vitamin D2) 1,250 1,250 mcg PO Q7D 10/22/20 03/16/22 10/16/20 History mcg (50,000 unit) capsule (Vitamin D2) metaxalone 800 mg tablet 800 mg PO TID PRN muscle spasms 10/22/20 03/16/22 Unknown History topiramate 100 mg tablet See Rx Instructions .Route 06/02/21 03/16/22 Unknown Rx .COMPLEX #180 tabs estradiol 1 mg tablet 1.5 mg PO DAILY@2200 2 months #90 12/20/21 03/16/22 Unknown Rx tabs estradiol 10 mcg vaginal tablet 10 mcg vaginal .COMPLEX 10 months 12/29/21 03/16/22 Unknown Rx (Yuvafem) #40 tabs medroxyprogesterone 2.5 mg tablet 2.5 mg PO DAILY@2200 #90 tabs 12/29/21 03/10/22 Unknown Rx lamotrigine 25 mg tablet (Lamictal) 25 mg PO BID #60 tabs 03/10/22 03/16/22 Unknown Rx clotrimazole 10 mg dago 10 mg mucous membrane TID 10 days 03/16/22 03/16/22 Unknown Rx #30 tabs Allergies Allergy/AdvReac Type Severity Reaction Status Date / Time No Known Allergies Allergy Verified 03/16/22 11:08 PFSH Acute PFSH: Medical History Cervical disc displacement Chronic back pain and takes as needed pain medication and muscle spasm medication for this managed by PMD Chronic GERD Since her 30s and is on medication-states EGD was normal Chronic migraine Since teenage years. Denies aura's Follows up with Dr. Ortega Endometriosis Previously diagnosed with endometriosis by laparoscopy. Definitively treated with LAVH and BSO on 07/04/2017. -On HRT including progesterone to help minimize recurrence of endometriosis Fracture of posterior malleolus of right tibia Fracture of right proximal fibula Fracture of tibial shaft, right, closed No pertinent past medical history Denies diabetes, asthma, seizures, hypertension, DVT/PE. PMD: Carmen Cruz Surgical History History of cholecystectomy (~11/2013) Laparoscopic. Performed at [facility] History of hysterectomy (07/04/17) LAVH/BSO-- Dx: Endometriosis, Chronic pelvic pain, Right ovarian cyst. Performed by Dr. Swenson at [facility] in [place], [place]. Final diagnosis: Right mucinous cystadenoma. ----> endometriosis was noted in the posterior ovarian fossa and uterosacral ligaments. History of laparoscopy (~2003) X 2 2003---Dr. Shane [address] Swenson treatment of endometriosis. Status post colonoscopy 2020 bowel problems-patient was normal Family History Father Hypertension Grandfather Heart disease paternal Colon cancer paternal, diagnosed in his late 70s Lung cancer maternal Hypertension paternal Grandmother Heart disease paternal Breast cancer paternal, diagnosed in her 50s Stroke paternal Family/Other Diabetes MATERNAL AUNT Breast cancer paternal aunt, diagnosed in her 60s Ovarian cancer paternal cousin, diagnosed in her 20s Leukemia Maternal Aunt Thyroid condition maternal cousin Mother Lung cancer Denies family history of Uterine cancer Social History Smoking and tobacco status: current every day smoker (1 PACK/DAY ) Vitals/I&O/Wt Last Vital Signs Temp 98 F 05/28/22 22:02 Pulse 82 05/29/22 01:26 Resp 22 H 05/29/22 02:00 BP 119/73 05/29/22 01:26 Pulse Ox 98 05/29/22 02:00 O2 Del Method 05/28/22 22:15 Weight last 48 hrs Weight 72.575 kg Physical Exam Narrative: Young female Awake and alert Euvolemic Abdomen soft No audible stridor or wheezing EOMI, PERRLA Nonfocal neuro exam Abdomen soft Right leg wrapped In splint No signs of vascular compromise EOMI, PERRLA Pleasant and cooperative Data : 05/29/22 05:45 05/29/22 05:45 A&P Assessment and plan (1) Fracture of posterior malleolus of right tibia: Status: Acute (2) Fracture of right proximal fibula: Status: Acute (3) Fracture of tibial shaft, right, closed: Status: Acute (4) Anxiety: Status: Acute (5) Chronic migraine without aura, intractable, with status migrainosus: Status: Acute (6) Peripheral neuropathy: Status: Acute (7) Grade III internal hemorrhoids: Status: Acute (8) Fibromyalgia: Status: Acute (9) Lumbar radiculopathy: Status: Acute Plan Right leg fracture tibia, fibula comminuted spiral fracture Right leg is currently in a brace Dr. Watkins consulted Plan for surgical intervention today No signs of vascular compromise She does carry history of fibromyalgia She has been requiring opiates almost every hour she is also requesting Benadryl I did not see any signs of skin rash or anaphylaxis Judicious use of Benadryl along opioids Full code N.p.o. DVT prophylaxis SCDs Patient is a smoker, smokes almost a pack a day Attestations Medical Necessity Statement*: More than 2 midnights anticipated for management of fracture Time Spent in Patient Care: 40 Coding Level of Care Code Acute Hospital Receiving Clerk for [facility] Fwd Diagnoses Fracture of posterior malleolus of right tibia S82.391A Fracture of right proximal fibula S82.831A Fracture of tibial shaft, right, closed S82.201A Anxiety F41.9 Chronic migraine without aura, intractable, with status migrainosus G43.711 Peripheral neuropathy G62.9 Grade III internal hemorrhoids K64.2 Fibromyalgia M79.7 Lumbar radiculopathy M54.16
[2022-05-29] MEDS: sodium chloride 0.9% 1,000 ML 75 ML IV (03:57)
[2022-05-29] MEDS: diphenhydrAMINE 50 mg/mL SDV 1mL 25 MG IVP (04:47)
[2022-05-29 06:20] LABS: Basophils # 0.1 10^3/uL (0.0-0.1); Basophils % 0.7 %; Eosinophils # 0.5 10^3/uL (0.0-0.8); Eosinophils % 3.9 %; Hemoglobin 11.7 g/dL (11.5-15.3); Lymphocytes # 2.4 10^3/uL (0.8-4.8); Lymphocytes % 19.6 %; Mean Corpuscular HGB Conc 31.6 g/dL (30.0-36.0); Mean Corpuscular Hemoglobin 29.8 pg (28.0-34.0); Mean Corpuscular Volume 94.4 fl (81-99); Mean Platelet Volume 10.5 fL (7.4-10.4); Monocytes # 0.8 10^3/uL (0.2-0.9); Monocytes % 6.5 %; Neutrophils # 8.32 10^3/uL (1.8-7.7); Neutrophils % 68.9 %; Nucleated Red Blood Cells % 0 %; Platelet Count 248 10^3/cmm (130-400); Red Blood Count 3.92 10^6/uL (4.1-5.3); Red Cell Distribution Width 13.8 % (12.1-15.1); White Blood Count 12.1 10^3/uL (4.0-10.0)
--- NOTE | 2022-05-29 06:30 | ED_ITS ---
HPI - Trauma General: Chief Complaint: Trauma Stated Complaint: LEG PAIN Time Seen by Provider: 05/28/22 22:01 Source: patient History of Present Illness: 42 year old female who slipped on roller skates, landing on her bum. In the midst of doing so, she felt and heard a pop followed by significant pain to her right leg. She was unable to get up or bear weight. MD complaint: fall and injury Onset (ago): hour(s) Loss of Consciousness: no Location - Extremities: Right: lower leg Associated symptoms: Reports nausea; Denies abdominal pain, back pain, chest pain, confusion, cough, difficulty breathing, fever(s) or vomiting Review of Systems Const: Denies: fever(s) Card: Denies: chest pain GI: Reports: nausea; Denies: abdominal pain or vomiting Musc: Denies: back pain Neuro: Denies: confusion PFS ED PFSH: Medical History Cervical disc displacement Chronic back pain and takes as needed pain medication and muscle spasm medication for this managed by PMD Chronic GERD Since her 30s and is on medication-states EGD was normal Chronic migraine Since teenage years. Denies aura's Follows up with Dr. Ortega Endometriosis Previously diagnosed with endometriosis by laparoscopy. Definitively treated with LAVH and BSO on 07/04/2017. -On HRT including progesterone to help minimize recurrence of endometriosis Fracture of posterior malleolus of right tibia Fracture of right proximal fibula Fracture of tibial shaft, right, closed No pertinent past medical history Denies diabetes, asthma, seizures, hypertension, DVT/PE. PMD: Carmen Cruz Surgical History History of cholecystectomy (~11/2013) Laparoscopic. Performed at [facility] History of hysterectomy (07/04/17) LAVH/BSO-- Dx: Endometriosis, Chronic pelvic pain, Right ovarian cyst. Performed by Dr. Swenson at [facility] in [place], [place]. Final diagnosis: Right mucinous cystadenoma. ----> endometriosis was noted in the posterior ovarian fossa and uterosacral ligaments. History of laparoscopy (~2003) X 2 2003---Dr. Shane and [address] Swenson treatment of endometriosis. Status post colonoscopy 2020 bowel problems-patient was normal Family History Father Hypertension Grandfather Heart disease paternal Colon cancer paternal, diagnosed in his late 70s Lung cancer maternal Hypertension paternal Grandmother Heart disease paternal Breast cancer paternal, diagnosed in her 50s Stroke paternal Family/Other Diabetes MATERNAL AUNT Breast cancer paternal aunt, diagnosed in her 60s Ovarian cancer paternal cousin, diagnosed in her 20s Leukemia Maternal Aunt Thyroid condition maternal cousin Mother Lung cancer Denies family history of Uterine cancer Social History Smoking and tobacco status: current every day smoker (1 PACK/DAY ) Physical Exam Const: GENERAL APPEARANCE: cooperative; not comfortable ORIENTATION/CONSCIOUSNESS: Yes awake, Yes oriented to person, Yes oriented to place and Yes oriented to time HENMT: COMMON NORMALS: normocephalic, atraumatic and Normal external nose present HEAD & SCALP: normocephalic and atraumatic FACE & SINUS: normal facial exam and face symmetric NOSE: Normal external nose present Eye: COMMON NORMALS: Equal, round and reactive pupils present and EOMs intact bilaterally PUPIL: Yes Equal, round and reactive pupils present Neck/C-Spine: COMMON NORMALS: full ROM GENERAL: Yes trachea midline Chest: CHEST: Yes Symmetrical chest wall rise Resp: COMMON NORMALS: normal respiratory effort, No retractions, No use of accessory muscles and clear to auscultation bilaterally AUSCULTATION: clear to auscultation bilaterally Cardio: COMMON NORMALS: regular rate and regular rhythm RATE: regular rate RHYTHM: regular rhythm GI: COMMON NORMALS: Normal to inspection, nondistended, normoactive bowel sounds present Extremity: NARRATIVE EXTREMITY EXAM: Exam of the RLE reveals tibial rotational deformity, swelling, and significant tenderness. No open areas. Pulses and sensation are intact distally. Neuro: EDDIE COMA SCALE: document GCS findings Eddie coma scale eye opening: Spontaneous Eddie coma scale verbal response: Orientated Eddie coma scale motor response: Obey commands [place] coma scale total score: 15 SENSORIUM/ORIENTATION: Yes oriented to person, Yes oriented to place and Yes oriented to time Skin: COMMON NORMALS: no rashes or lesions noted and no wounds GENERAL SKIN EXAM: no rashes or lesions noted Procedures Orthopedic Fracture Reduction Fracture #1: Time Out Performed: Yes Side: right Fracture Reduction Location: tibia and fibula Analgesia: procedural sedation Technique: direct manipulation and traction/counter-traction Post Reduction X-rays Demonstrate: acceptable reduction Post-reduction neuro exam: intact Post-reduction vascular exam: intact Splint Applied: Yes Patient Tolerated Procedure: well and no complications Procedural Sedation Indication: fracture/dislocation reduction ASA Class: I Preparation: cardiac cath tech applied, pulse oximeter, supplemental O2 applied, suction/airway equipment at bedside and IV secured Midazolam: IV Midazolam dose (mg): 1 IV Etomidate dose (mg): 15 Complications: none Course Vital Signs: Vital signs: Vital Signs Temperature 98.2 F 05/29/22 12:12 Pulse Rate 94 05/29/22 15:25 Respiratory Rate 15 05/29/22 18:40 Blood Pressure 111/70 05/29/22 12:12 Pulse Oximetry 97 05/29/22 15:25 Oxygen Delivery Me thod 05/29/22 15:25 Oxygen Flow Rate 2 05/29/22 11:50 MDM - Trauma Medical Decision Making Spiral fracture of the tibia with proximal fibular fracture found on X-ray. Positionally reduced under sedation sucessfully and placed in a long leg splint with stirrup. She feels improved with splinting. No complications. She'll be admitted for potential surgical stabilization in the morning. Hospitalist and orthopedic surgery have been contacted. Lab Data : 05/29/22 05:45 05/29/22 05:[address] 05/28/22 23:50 IMPRESSION: Distal tibial diaphyseal comminuted oblique fracture with approximately 1/4 shaft displacement. Tibia/Fibula X-Ray 05/29/22 11:16 IMPRESSION: Satisfactory position of the tibia and fibula fractures. Discharge Plan Discharge Patient Disposition: Admitted As Inpatient Admit Provider: Kristy Rizo Clinical Impression: Fracture of right proximal fibula, Fracture of tibial shaft, right, closed Condition: Fair Discharge Activity: Limit activity as instructed and Use walker/crutches as instructed Coding Level of Care Code ED Welt Rander for [facility]
[2022-05-29 06:37] LABS: Anion Gap 10.7 (5-19); Blood Urea Nitrogen 10 mg/dL (6-20); Calcium 8.9 mg/dL (8.5-10.5); Carbon Dioxide 25 mmol/L (22-29); Chloride 107 mmol/L (98-107); Creatinine Clr Calc Pharmacy 119.2617; Glomerular Filtration Rate 109.6 mL/min (90-130); Glucose 91 mg/dL (65-115); Osmolality Calculated 287 mOsm/kg (285-295); Potassium 3.7 mmol/L (3.5-5.1); Sodium 139 mmol/L (136-145)
--- NOTE | 2022-05-29 07:04 | PM.CONSULT ---
Providers/Reason For Consult Consulting Physician/Specialty*: Declan Garcia DO/orthopedic surgery Reason for Consult*: Right distal third tibial shaft fracture with proximal third fibular shaft fracture Requesting Physician: Dr. Jimenez emergency department Attending Physician: Kristy Rizo MD Primary Care Provider: Ramya Messer DO History of Present Illness History of Present Illness Tess Joseph is a 42 year old female who presented to the emergency department last night after sustaining a fall while on her roller skates. Patient states her right foot got caught twisting mechanism felt her tibia crack and went down and noted immediate pain and deformity. Brought to emergency department found to have right distal third tibial shaft fracture as well as proximal third fibular shaft fracture. Rest of work-up was negative. Patient admitted by hospitalist team and orthopedic surgery team was consulted. She was splinted with a long-leg splint and stirrup by the emergency department with correction of some of her rotational deformity. CT scan of the right ankle was ordered to rule out posterior malleolus and a posterior malleolus fracture is noted which will require fixation in addition to the tibial shaft fracture. Denies any fevers chills chest pain shortness of breath nausea or vomiting. Review of Systems General: Reports: 10 or more systems reviewed and unremarkable except in HPI and below Medications/Allergies Home Medications Medication Instructions Recorded Confirmed Last Taken Type pantoprazole 40 mg tablet,delayed 40 mg PO DAILY@1000 10/23/19 03/10/22 10/22/20 History release (Protonix) promethazine 25 mg tablet 25 mg PO Q6H PRN n/v 10/23/19 03/16/22 Unknown History venlafaxine 150 mg 150 mg PO DAILY@1000 10/23/19 03/16/22 10/22/20 History capsule,extended release 24 hr (Effexor XR) cetirizine 10 mg capsule (Zyrtec) 10 mg PO DAILY PRN allergies 11/07/19 03/16/22 05/21/20 History tizanidine 4 mg tablet 4 mg PO BID PRN muscle spasticity 04/15/20 03/16/22 Unknown Rx #60 tabs ergocalciferol (vitamin D2) 1,250 1,250 mcg PO Q7D 10/22/20 03/16/22 10/16/20 History mcg (50,000 unit) capsule (Vitamin D2) metaxalone 800 mg tablet 800 mg PO TID PRN muscle spasms 10/22/20 03/16/22 Unknown History topiramate 100 mg tablet See Rx Instructions .Route 06/02/21 03/16/22 Unknown Rx .COMPLEX #180 tabs estradiol 1 mg tablet 1.5 mg PO DAILY@2200 2 months #90 12/20/21 03/16/22 Unknown Rx tabs estradiol 10 mcg vaginal tablet 10 mcg vaginal .COMPLEX 10 months 12/29/21 03/16/22 Unknown Rx (Yuvafem) #40 tabs medroxyprogesterone 2.5 mg tablet 2.5 mg PO DAILY@2200 #90 tabs 12/29/21 03/10/22 Unknown Rx lamotrigine 25 mg tablet (Lamictal) 25 mg PO BID #60 tabs 03/10/22 03/16/22 Unknown Rx clotrimazole 10 mg dago 10 mg mucous membrane TID 10 days 03/16/22 03/16/22 Unknown Rx #30 tabs Allergies Allergy/AdvReac Type Severity Reaction Status Date / Time No Known Allergies Allergy Verified 03/16/22 11:08 Current Medications Generic Name Dose Route Start Last Admin Trade Name Freq PRN Reason Stop Dose Admin Sodium Chloride 1,000 mls @ 75 mls/hr 05/29/22 03:29 05/29/22 03:57 Sodium Chloride 0.9% IV 75 mls/hr .[id number] MIKAL Administration Morphine Sulfate 4 mg 05/29/22 06:28 05/29/22 06:48 Morphine 2 Mg/Ml Syr 1 Ml IVP 4 mg Q1H PRN Administration SEVERE PAIN PFSH Acute PFSH: Medical History (Updated 05/29/22 @ 07:11 by Declan Garcia DO) Cervical disc displacement Chronic back pain and takes as needed pain medication and muscle spasm medication for this managed by PMD Chronic GERD Since her 30s and is on medication-states EGD was normal Chronic migraine Since teenage years. Denies aura's Follows up with Dr. Ortega Endometriosis Previously diagnosed with endometriosis by laparoscopy. Definitively treated with LAVH and BSO on 07/04/2017. -On HRT including progesterone to help minimize recurrence of endometriosis Fracture of posterior malleolus of right tibia Fracture of right proximal fibula Fracture of tibial shaft, right, closed No pertinent past medical history Denies diabetes, asthma, seizures, hypertension, DVT/PE. PMD: Carmen Cruz Surgical History History of cholecystectomy (~11/2013) Laparoscopic. Performed at [facility] History of hysterectomy (07/04/17) LAVH/BSO-- Dx: Endometriosis, Chronic pelvic pain, Right ovarian cyst. Performed by Dr. Swenson at [facility] in [place], [place]. Final diagnosis: Right mucinous cystadenoma. ----> endometriosis was noted in the posterior ovarian fossa and uterosacral ligaments. History of laparoscopy (~2003) X 2 2003---Dr. Shane and [address] Swenson treatment of endometriosis. Status post colonoscopy 2020 bowel problems-patient was normal Family History Father Hypertension Grandfather Heart disease paternal Colon cancer paternal, diagnosed in his late 70s Lung cancer maternal Hypertension paternal Grandmother Heart disease paternal Breast cancer paternal, diagnosed in her 50s Stroke paternal Family/Other Diabetes MATERNAL AUNT Breast cancer paternal aunt, diagnosed in her 60s Ovarian cancer paternal cousin, diagnosed in her 20s Leukemia Maternal Aunt Thyroid condition maternal cousin Mother Lung cancer Denies family history of Uterine cancer Social History Smoking and tobacco status: current every day smoker (1 PACK/DAY ) Vitals/I&O/Wt Last Vital Signs Temp 97.7 F 05/29/22 04:54 Pulse 78 05/29/22 05:20 Resp 16 05/29/22 05:20 BP 101/70 05/29/22 04:54 Pulse Ox 96 05/29/22 05:20 O2 Del Method 05/29/22 05:20 O2 Flow Rate 2 05/29/22 01:00 05/28/22 05/29/22 05/29/22 22:59 06:59 14:59 Intake Total 0 / 0 Output Total 300 / 300 Balance -300 / -300 Weight last 48 hrs Weight 160 lb Physical Exam Narrative: Orthopedic examination: No tenderness to palpation of bilateral shoulders humerus elbows forearms wrists or hands. Normal range of motion of the upper extremity joints. Patient has no tenderness to palpation of the bilateral hips femurs or knee. Currently in a long-leg splint to the right lower extremity which limits examination. Examination is only able to be performed the patient endorses sensation intact to light touch to the toes as well as in the SPN and DPN nerve distribution. Compartments above and below patient's splint are soft and compressible. Patient has no signs of compartment syndrome with no paresthesias or pain with range of motion to her toes. DP pulse which is 2+. She is able to wiggle her toes. Unable to assess knee flexion and extension secondary to splint or ankle plantarflexion and dorsiflexion. Left lower extremity no tenderness to palpation of the knee tibia foot or ankle. With normal range of motion of these joints. Patient is able to plantarflex and dorsiflex ankle. Left lower extremity warm well perfused pulse palpable. Const: COMMON NORMALS: no acute distress, average body habitus and healthy appearing HENMT: COMMON NORMALS: normocephalic and atraumatic HEAD & SCALP: normocephalic and atraumatic Resp: COMMON NORMALS: normal respiratory effort and No retractions Urinary Catheter Management: Camacho: Cath Placed During This Visit: yes Urinary Catheter Date of Insertion: 05/29/22 Urinary Catheter Time of Insertion: 04:00 Data : 05/29/22 05:45 05/29/22 05:45 Xray Ortho: My impression: X-rays show displaced malrotated and shortened right distal third tibial shaft fracture with associated proximal third fibular shaft fracture. Post reduction and splinting show improvement however still malrotation as well as shortening and displacement. CT scan of the right ankle demonstrates a nondisplaced posterior malleolus fracture. A&P Assessment and plan (1) Fracture of tibial shaft, right, closed: Status: Acute (2) Fracture of right proximal fibula: Status: Acute (3) Fracture of posterior malleolus of right tibia: Status: Acute Plan - Patient admitted by hospitalist as primary team and appreciate their medical management and preoperative optimization -N.p.o. since midnight -Right lower extremity in long-leg splint with stirrup -Ice and elevate -Pain control -Imaging reviewed -Obtain consent -Preoperative antibiotics -Nonweightbearing right lower extremity -Plan for OR this morning for closed reduction and percutaneous fixation right posterior malleolus with right tibial shaft suprapatellar intramedullary nail MDM: Tess presents is a 42-year-old female with close distal third tibial shaft fracture with associated proximal third fibular shaft fracture. Stabilized in the emergency department and admitted by hospitalist team and orthopedic surgery was consulted. Patient did not obtain a CT scan of the right ankle which does reveal a nondisplaced fracture line through the posterior malleolus. At this point had detailed discussion with patient about her treatment options as far as nonoperative and operative intervention. Ultimately my recommendation for this would be a closed reduction and percutaneous fixation of anterior to posterior screws for the right malleolus followed by a right tibial shaft suprapatellar intramedullary nail. Given her significant malrotation displacement angulation and shortening as well as joint involvement and plans for earlier mobilization compared to a nonoperative casting and her young age with children would recommend having this fixed. Detailed out the risks benefits complications and alternatives to each nonoperative and operative intervention. Risks include but are not limited to make it better, make it worse, blood clot, heart attack, stroke, on the table, injury to nerves or vessels, malunion, nonunion, infection, persistent pain. Stating these risks and through shared decision making patient agrees to proceed with surgical intervention. We will take place this morning. We will have her recover on the floor and see how she is tolerating her pain and hopefully get her up with therapy. Given the posterior malleolus involvement would keep her off of this until she sees me in office.. She may discharge home later today or early tomorrow morning depending on how she is doing with pain and mobility. Consult Attestations Medical Necessity Statement: Patient sustained right distal third tibial shaft fracture with associated posterior malleolus as well as a right proximal fibular shaft fracture. Requiring hospitalization and surgical intervention Coding Level of Care Code Acute Biomedical Electronics Technician for [facility] Diagnoses Fracture of tibial shaft, right, closed S82.201A Fracture of right proximal fibula S82.831A Fracture of posterior malleolus of right tibia S82.391A
--- NOTE | 2022-05-29 07:18 | W.PM.OPSUD ---
Surgery/Procedure H&P Update DATE OF PROCEDURE: May 29, 2022 DATE H&P PERFORMED: 05/29/22 CHANGES TO PREVIOUS DOCUMENTATION: None PREOP DIAGNOSIS: Displaced right tibial shaft fracture PRIMARY INDICATION FOR PROCEDURE: Displaced right tibial shaft fracture with associated proximal third fibular shaft fracture, as well as right posterior malleolus fracture PLANNED PROCEDURE: Operation Date: 05/29/22 08:30 Proposed Procedures p Right Tibia Supramedullary nail(Right) - Declan Garica DO
--- NOTE | 2022-05-29 07:28 | ANES.PREANE2 ---
Pre-Anesthetic Assessment Height/Weight: Height 1.63 m Weight 72.575 kg Temp Pulse Resp BP Pulse Ox O2 Del Method O2 Flow Rate 97.7 F 78 16 101/70 96 2 05/29/22 04:54 05/29/22 05:20 05/29/22 05:20 05/29/22 04:54 05/29/22 05:20 05/29/22 05:20 05/29/22 01:00 Preop Diagnosis: Displaced right tibial shaft fracture Operation Date: 05/29/22 08:30 Proposed Procedures p Right Tibia Supramedullary nail(Right) - Declan Garcia DO Familial anesthetic complications: none Was Beta Keisha taken within 24 hours: N/A Was Clonidine taken within 24 hours: N/A Last intake: Intake Last Liquid Date 05/28/22 Last Solid Date 05/28/22 Last Intake: 07:00 (Had a few ice cubes) Social Tobacco 1 pack(s) per day 28 pack years Exam alert, oriented x 3, clear to auscultation bilaterally and regular rate & rhythm Airway Submandibular: within normal limits Cervical ROM: within normal limits Mallampati: Class III Dentition: false History/ROS No significant history except as noted and No significant complaints Pulmonary None reported CV/HEM None reported None reported Hepatic None reported GI Gastroesophageal Reflux Disease (Well controlled with medications. None this AM) Metabolic None reported Musc/skel Fibromyalgia Neuropsych Neuropathy Anesthetic Plan ASA status: 2 Anesthesia: Anesthesia Evaluation and General Risk of > 500 ml blood loss (7ml/kg in children): No Medications/Allergies Home Medications Medication Instructions Recorded Confirmed Last Taken Type pantoprazole 40 mg tablet,delayed 40 mg PO DAILY@99910/23/19 03/10/22 10/22/20 History release (Protonix) promethazine 25 mg tablet 25 mg PO Q6H PRN n/v 10/23/19 03/16/22 Unknown History venlafaxine 150 mg 150 mg PO DAILY@99910/23/19 03/16/22 10/22/20 History capsule,extended release 24 hr (Effexor XR) cetirizine 10 mg capsule (Zyrtec) 10 mg PO DAILY PRN allergies 11/07/19 03/16/22 05/21/20 History tizanidine 4 mg tablet 4 mg PO BID PRN muscle spasticity 04/15/20 03/16/22 Unknown Rx #60 tabs ergocalciferol (vitamin D2) 1,250 1,250 mcg PO Q7D 10/22/20 03/16/22 10/16/20 History mcg (50,000 unit) capsule (Vitamin D2) metaxalone 800 mg tablet 800 mg PO TID PRN muscle spasms 10/22/20 03/16/22 Unknown History topiramate 100 mg tablet See Rx Instructions .Route 06/02/21 03/16/22 Unknown Rx .COMPLEX #180 tabs estradiol 1 mg tablet 1.5 mg PO DAILY@2200 2 months #90 12/20/21 03/16/22 Unknown Rx tabs estradiol 10 mcg vaginal tablet 10 mcg vaginal .COMPLEX 10 months 12/29/21 03/16/22 Unknown Rx (Yuvafem) #40 tabs medroxyprogesterone 2.5 mg tablet 2.5 mg PO DAILY@2200 #90 tabs 12/29/21 03/10/22 Unknown Rx lamotrigine 25 mg tablet (Lamictal) 25 mg PO BID #60 tabs 03/10/22 03/16/22 Unknown Rx clotrimazole 10 mg dago 10 mg mucous membrane TID 10 days 03/16/22 03/16/22 Unknown Rx #30 tabs Allergies Allergy/AdvReac Type Severity Reaction Status Date / Time No Known Allergies Allergy Verified 03/16/22 11:08 Current Medications Generic Name Dose Route Start Last Admin Trade Name Freq PRN Reason Stop Dose Admin Sodium Chloride 1,000 mls @ 75 mls/hr 05/29/22 03:29 05/29/22 03:57 Sodium Chloride 0.9% IV 75 mls/hr .[id number] MIKAL Administration Morphine Sulfate 4 mg 05/29/22 06:28 05/29/22 06:48 Morphine 2 Mg/Ml Syr 1 Ml IVP 4 mg Q1H PRN Administration SEVERE PAIN PFSH Anesthesia Medical History Cervical disc displacement Chronic back pain and takes as needed pain medication and muscle spasm medication for this managed by PMD Chronic GERD Since her 30s and is on medication-states EGD was normal Chronic migraine Since teenage years. Denies aura's Follows up with Dr. [place] Endometriosis Previously diagnosed with endometriosis by laparoscopy. Definitively treated with LAVH and BSO on 07/04/2017. -On HRT including progesterone to help minimize recurrence of endometriosis Fracture of posterior malleolus of right tibia Fracture of right proximal fibula Fracture of tibial shaft, right, closed No pertinent past medical history Denies diabetes, asthma, seizures, hypertension, DVT/PE. PMD: Carmen Cruz Surgical History History of cholecystectomy (~11/2013) Laparoscopic. Performed at [facility] History of hysterectomy (07/04/17) LAVH/BSO-- Dx: Endometriosis, Chronic pelvic pain, Right ovarian cyst. Performed by Dr. Swenson at [facility] in [place], [place]. Final diagnosis: Right mucinous cystadenoma. ----> endometriosis was noted in the posterior ovarian fossa and uterosacral ligaments. History of laparoscopy (~2003) X 2 2003---Dr. Shane [address] Swenson treatment of endometriosis. Status post colonoscopy 2020 bowel problems-patient was normal Family History Father Hypertension Grandfather Heart disease paternal Colon cancer paternal, diagnosed in his late 70s Lung cancer maternal Hypertension paternal Grandmother Heart disease paternal Breast cancer paternal, diagnosed in her 50s Stroke paternal Family/Other Diabetes MATERNAL AUNT Breast cancer paternal aunt, diagnosed in her 60s Ovarian cancer paternal cousin, diagnosed in her 20s Leukemia Maternal Aunt Thyroid condition maternal cousin Mother Lung cancer Denies family history of Uterine cancer Social History Smoking and tobacco status: current every day smoker (1 PACK/DAY ) Data Anesthesia : 05/29/22 05:45 05/29/22 05:45 Short CBC 05/29/22 Range/Units 05:45 WBC 12.1 H (4.0-10.0) 10^3/uL Hgb 11.7 (11.5-15.3) g/dL Hct 37.0 (37.0-47.0) % MCV 94.4 (81-99) fl Plt Count 248 (130-400) 10^3/cmm Neut % (Auto) 68.9 % Neut # (Auto) 8.32 H (1.8-7.7) 10^3/uL BMP 05/29/22 05:45 Sodium 139 Potassium 3.7 Chloride 107 Carbon Dioxide 25 BUN 10 Creatinine 0.6 Glucose 91 Calcium 8.9 Cardiac Studies: No Data to Display
[2022-05-29] MEDS: sodium chloride 0.9% 1,000 ML 30 ML IV (07:30)
[2022-05-29] MEDS: ceFAZolin 2,000 MG in sodium chloride 0.9% (plus) 50 ML 100 MG IV ×2 (07:57→16:50)
[2022-05-29 08:00] LABS: Creatine Phosphokinase 128 U/L (26-192)
--- NOTE | 2022-05-29 11:16 | XRR_ITS ---
PROCEDURE INFORMATION: Exam: XR Right Tibia and Fibula Exam date and time: 05/29/2022 11:16 AM Age: 42 years old Clinical indication: Device placement; Other: Post op tib/fib; Patient HX: Post op pictures 05/29/22; Additional info: Post op pictures, done 05/29/22 TECHNIQUE: Imaging protocol: Radiologic exam of the Right tibia and fibula. Views: 2 views. COMPARISON: CR XR tibia fibula RT 2V [id number] 05/29/2022 12:59 AM FINDINGS: Bones/joints: An intramedullary eleanor with multiple screws transfixes an oblique fracture of the distal shaft of the tibia. There is also an oblique nondisplaced fracture of the proximal shaft of the fibula. The position of the distal tibia fracture is satisfactory. Soft tissues: Normal. XR/XR tibia fibula RT 2V [id number] IMPRESSION: Satisfactory position of the tibia and fibula fractures.
--- NOTE | 2022-05-29 11:18 | PM.OP2 ---
Brief Operative Note Date of procedure: 05/29/22 Pre-op diagnosis: Right distal third tibial shaft fracture, right posterior malleolus fractur Post-op diagnosis: other (Right distal third tibial shaft fracture, right posterior malleolus fracture, right proximal third fibular shaft fracture) Procedure Done: Closed reduction and percutaneous screw fixation right posterior malleolus Open reduction internal fixation right tibial shaft fracture with suprapatellar intramedullary nail Surgeon: Declan Garcia Estimated blood loss (mL): 150 Complications: None Post-op Plan: Patient to recover in PACU. Return to floor once recovered. Splint on and in place. Nonweightbearing right lower extremity. Range of motion of knee as tolerated. PT/OT. Pain control. DVT prophylaxis. Postoperative antibiotics. Internal medicine is primary. Condition: stable Disposition: floor Coding Level of Care Code Acute Phone Manager for Gonzalo Walton
--- NOTE | 2022-05-29 11:20 | PM.PACU ---
PACU note Narrative: Patient's and examined in PACU recovering and stable. Patient splint on in place clean dry and intact. Examination limited secondary to splint. Patient is able to wiggle toes. DP pulse palpable. Toes are warm well perfused. Patient dorsal sensation tact light touch to the SPN/DPN. Exam: awake (Able to follow commands, see narrative above) Disposition: back to floor
--- NOTE | 2022-05-29 11:22 | P.OP_ITS ---
Operative Report Date of procedure: May 29, 2022 Pre-op diagnosis: Preop Diagnosis Displaced right tibial shaft fracture Post-op diagnosis: Right displaced distal third tibial shaft fracture Right proximal third fibular shaft fracture Right ankle posterior malleolus nondisplaced fracture Post-op findings: See procedure note Procedure done: Closed reduction and percutaneous screw fixation right ankle posterior malleolus fracture Right tibial shaft open reduction and suprapatellar intramedullary nail fixation Implants: 2 x 4.0 mm partially-threaded cannulated [place] screws (38 and 48 mm) 9 x 300 mm T2 alpha [place] nail 2x proximal 5.0 mm locking screws 47.5 and 40 mm 3x distal interlocking screws 42.5 mm, 35 mm, 37.5 mm Specimens removed/disposition: None Pathology: None Surgeon: Declan Garcia DO Estimated blood loss: 150 mL none IV fluids: see anesthesia record Complications: None Findings: See procedure note in detail Condition: stable Disposition: floor Brief History: Patient a 42-year-old female who sustained a distal third tibial shaft fracture with associated proximal third fibular shaft fracture. She sustained a fall while on roller skates. Given the significance of rotation shortening and chance of early mobility recommended surgical intervention. Prior to proceeding advanced imaging was performed CT scan of the right knee showed a nondisplaced posterior malleolus fracture. Patient was seen and evaluated the morning of 05/29/2022 by myself and patient was educated about her diagnosis and treatment options. Detail that the risk benefits complication alternatives to surgical and nonsurgical intervention. She does have her history of chronic smoking. We detail out her risks of but are not limited to make it better, make it worse, malunion, nonunion, infection, injury to nerves or vessels, painful hardware or further surgeries, blood clot. Understanding these risks she agrees to proceed with surgical intervention. My recommendations for surgery for better anatomic alignment of length alignment and rotation as well as for earlier mobilization given her young age with children. Through shared decision making we agreed to proceed with surgical intervention. All questions answered. Consent was obtained. Procedure: Patient seen and evaluated final consent was detailed with the patient. Consent signed. Correct extremity marked. Evaluated by anesthesia. Once finished with preop, she was taken to the operative suite and underwent anesthesia per the anesthesia department. Once appropriately anesthetized she was then transferred to the bed supine and was secured and all bony prominences well-padded. This time a bump was placed under the ipsilateral right hip the right lower extremity was placed into a nonsterile tourniquet. Bone foam and blankets were used to prop the right lower extremity with prep for a right suprapatellar nail. Once correct position we did bring in large C arm to confirm no visual obstruction for fluoroscopic imaging throughout the case. Once this was performed the right lower extremity was then prepped and draped in standard orthopedic fashion. Timeout was performed. Patient received appropriate preoperative antibiotics. First attention was turned towards patient's nondisplaced posterior malleolus. Standard AP and lateral films were performed of the ankle. A small incision with a 15 blade was made just through skin a tonsil was then used to bluntly spread and dissect directly down to bone with care to not injure any tendons or vessels. Once in appropriate position a threaded K wire for [place]'s 4 oh cannulated screw set was then advanced in parallel fashion to the joint and perpendicular across the fracture site. Once this was confirmed and appropriate position with multiple orthogonal imaging with large C arm the appropriate length screw was then sized over drilling was performed and appropriate length screw was then advanced with excellent purchase. Next I then proceeded with an additional anterior to posterior cannulated screw. This was placed lateral to the prior with plan again to be parallel to the joint and perpendicular to the fracture site. Small incision through skin only and blunt dissection with tonsil was used directly down to bone. Soft tissue protector used and threaded K wire was then advanced into appropriate position perpendicular to the fracture site. K wire measured, overdrilled performed and appropriate length screw was advanced had excellent fixation. This completed fixation of her posterior malleolus with no fracture displacement and excellent fixation. Next attention was then turned towards the fracture site. To assess for ability to obtain reduction. Close reduction was performed which helped to maintain length however there still was a small rotational component that was unable to achieve closed. As result I utilized a large bone tenaculum small percutaneous 2 incisions were used to obtain a near anatomic reduction with a bone clamp as well as to help maintain our reduction while placing her nail. This was confirmed in multiple orthogonal planes showing excellent length alignment and rotation of her fracture site. Next attention placed towards the suprapatellar nail. Small 5 cm incision made just superior to the pole of the patella. Sharp scalpel excision through skin subcutaneous tissue directly down to the extensor mechanism. Quad tendon was then incised longitudinally in line with the fiber to perform our arthrotomy into the joint. Next the [place] T2 alpha aiming guide was then introduced with the appropriate sleeve was advanced through the patellofemoral joint directly down over to our starting point. I then advanced a starting guidewire in appropriate position in the AP and lateral films. AP was just medial to lateral tibial spine center down the shaft and just anterior off the articular margin and the lateral film. Once this was confirmed to be appropriate length we then utilized our opening reamer. Once opening reamer was placed we then removed our sleeve and then passed a ball-tipped guidewire. Ball-tipped guidewire was then advanced carefully through the shaft past fracture site and in center center position at the ankle just between the 2 cannulated screws. We then measured the nail length which would be 300 mm. Once this was confirmed we then sequentially reamed from 8 mm up to 10.5 and 0.5 increments. We had excellent chatter at 10.5 and our preoperative plan measured roughly a 9 mm isthmus fit for a 9 mm nail. We had excellent chatter at 10.5 mm and elected to proceed with placing a 9 mm x 300 mm nail. During her reaming we maintained our reduction with our clamp as well as gentle traction longitudinally. Next we proceeded with gentle limb packed things are T2 alpha nail which showed excellent maintenance of our reduction. Next we placed 2 proximal locking screws 1 in the static and 1 in the dynamic oblong hole in case of need for dynamization at a later date. Drill sleeves were introduced small scalpel incision and blunt dissection to bone these were then drilled measured appropriate length and appropriate length screws were placed with excellent purchase. This completed her proximal fixation. Next attention was turned distally to placing 3 distal interlocking screws. We then placed 2 medial to lateral screws using perfect [place] technique these were drilled measured and appropriate length screws were placed. Next we then placed an anterior to posterior locking screw using perfect [place] technique which was subsequently drilled measured and appropriate length screw placed. This completed our fixation. Nail appliance service supervisor and guide were then removed. Final images were then taken AP lateral and ankle mortise of the right ankle. This showed excellent distal fixation stress images was performed of the syndesmosis showing this was stable. Fracture site AP and lateral were then taken show stable length alignment and rotation. Final AP and lateral films of the knee were then taken showing appropriate length nail and interlocking fixation proximally. Clinical examination shows well aligned tibia with appropriate length alignment rotation. Wounds were then thoroughly irrigated with normal saline. Proximal suprapatellar incision was then closed with 0 Vicryl of the quad tendon 2-0 Vicryl for subcutaneous tissue and johann. The rest of the small stab incisions were then closed with 2-0 Vicryl and johann. Incisions were covered with Silverlon dressing. Cast padding then applied and a short leg posterior slab was then placed with foot in dorsiflexion and 6 inch Esau wrap. Patient was then awakened from anesthesia and transferred to the hospital bed and taken to PACU in stable condition. Disposition: Patient to be nonweightbearing to the right lower extremity until follow-up given posterior malleolus fixation. PT/OT. Return to the floor. Pain control. DVT prophylaxis. We will observe patient overnight. Plan for discharge tomorrow morning. Ice and elevate as needed right lower extremity. We will follow-up in my office in 2 weeks.
[2022-05-29] MEDS: meperidine 50 mg/mL INJ 12.5 MG IVP (11:23)
[2022-05-29] MEDS: sennosides-docusate Tablet 1 TAB PO ×2 (12:17→16:54)
[2022-05-29] MEDS: oxyCODONE 5 mg IR Tab/Cap PO ×2 (12:17→16:52)
[2022-05-29] MEDS: acetaminophen 500 mg Tablet 1000 MG PO (12:17)
[2022-05-29] MEDS: fixodent 39 gm Tube 1 APPLIC DENTAL (12:29)
[2022-05-29 13:50] LABS: Amphetamines Screen Urine Negative (Negative); Barbiturates Screen Urine Negative (Negative); Benzodiazepines Screen Urine Negative (Negative); Cocaine Screen Urine Negative (Negative); Opiate Screen Urine Positive (Negative); PCP Screen Urine Negative (Negative); THC Screen Urine Negative (Negative)
[2022-05-29] MEDS: artificial tears Op Soln 15 mL Btl 1 DROP EYE-BOTH (14:54)
[2022-05-29 15:02] LABS: Add Urine Microscopic? YES; Bilirubin Urine Neg (Negative); Blood Urine 3+ (Negative); Glucose Urine UA Norm (Normal); Ketones Urine Negative (Negative); Leukocyte Esterase Urine Negative (Negative); Nitrate Urine Negative (Negative); Protein Urine Neg (Negative); Specific Gravity, Urine 1.005 (1.005-1.030); Urine Appearance Clear (CLEAR); Urine Color Straw (Yellow); Urobilinogen Urine Norm (Negative); pH Urine 6.5 (5-7)
[2022-05-29 15:03] LABS: Add Urine Culture? Yes; Bacteria Urine TRACE /hpf; RBC Urine 15-25 /hpf (0-2); WBC Urine RARE /hpf (0-5)
[2022-05-29] MEDS: calcium carb-vit d 600mg/400unit 1 Tablet 1 EACH PO (16:54)
[2022-05-29] MEDS: nicotine 4 mg lozenge MUCOUS MEM (16:55)
--- NOTE | 2022-05-29 17:23 | P.MISC_ITS ---
Miscellaneous Note Purpose of Documentation: Orthopedic note update: Note: I was contacted by patient's nurse on [facility] about patient's desire to leave this evening. We did discuss this preoperatively with the patient about seeing how she does after surgery. Per nurse patient states she is doing well comfortable neurovascular intact and pain well controlled with medications. After surgery I did discuss with as well as patient that my recommendation would be for patient to stay for observation overnight just to monitor pain. Nurses updated patient once again and she is adamant about leaving. From my perspective she would be okay to discharge home this evening as long as her pain is controlled she is tolerating diet and able to ambulate or mobilize safely while maintaining nonweightbearing restrictions of the right lower extremity. However patient insists on discharging home this evening. I have updated patient's chart as far as her discharge medications including pain medication as well as a daily aspirin for DVT prophylaxis. Her discharge instructions are in and she should follow-up with me in 2 weeks in office. She should be educated about if there is any acute change in symptoms she should contact the office or report back to the emergency department for evaluation. Again my initial recommendations would have been for observation and discharge in the morning however if patient is doing well and is appropriately educated prior to her leaving about any acute change in symptoms signs for change in neurovascular status or worsening pain unable to be controlled by medications that she understands these risks and and how to monitor and should report to emergency department for reevaluation.
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
== END 2022-05-29 18:40 | disposition left against medical advice (07) | DRG 494 ==
LOC: ER 05-29 → MEDSURG 05-29 06:31
PROVIDERS: Student in an Organized Health Care Education/Training Program; Admitting Provider Internal Medicine; Emergency Provider Emergency Medicine; PCP Family Medicine; Visit Provider Internal Medicine
PROC: 0QSG06Z Reposition Right Tibia with Intramedullary Internal Fixation Device, Open Approach (ICD-10-PCS; principal; 2022-05-29 08:00)
PROC: 0QSG06Z Reposition Right Tibia with Intramedullary Internal Fixation Device, Open Approach (ICD-10-PCS; 2022-05-29 08:00)
DX: S82.61XA Displaced fracture of lateral malleolus of right fibula, initial encounter for closed fracture (principal); S82.891A Other fracture of right lower leg, initial encounter for closed fracture; S82.831A Other fracture of upper and lower end of right fibula, initial encounter for closed fracture; V00.128A Other non-in-line roller-skating accident, initial encounter; Y93.51 Activity, roller skating (inline) and skateboarding; F17.200 Nicotine dependence, unspecified, uncomplicated; G89.29 Other chronic pain; K21.9 Gastro-esophageal reflux disease without esophagitis; G43.709 Chronic migraine without aura, not intractable, without status migrainosus; F41.9 Anxiety disorder, unspecified; G62.9 Polyneuropathy, unspecified; K64.2 Third degree hemorrhoids; M79.7 Fibromyalgia; M54.16 Radiculopathy, lumbar region; Z79.890 Hormone replacement therapy
CPT/HCPCS: 29505; 36415; 51702; 73590; 73700; 76000; 80048; 80306; 81001; 82550; 83735; 85025; 87086; 96374; 96375; 96376; 97116; 97161; 97530; 99285; C1713; J1100; J1170; J1200; J1885; J2175; J2250; J2270; J2405; J2704; J2710; J3010; J3490; J7030; P9041

== ENCOUNTER → 2022-06-02 07:39 | Outpatient (BNVA) | payer OTHER, MEDICAID, SELFPAY | PROVIDERS: PCP Family Medicine; Visit Provider Student in an Organized Health Care Education/Training Program | DX: G43.711 Chronic migraine without aura, intractable, with status migrainosus (principal); Z98.890 Other specified postprocedural states; S82.391A Other fracture of lower end of right tibia, initial encounter for closed fracture; S82.831A Other fracture of upper and lower end of right fibula, initial encounter for closed fracture; S82.201A Unspecified fracture of shaft of right tibia, initial encounter for closed fracture; X58.XXXA Exposure to other specified factors, initial encounter | CPT/HCPCS: 64615; 99024; J0585 ==

== ENCOUNTER → 2022-06-07 09:25 | Outpatient (BNVA) | payer OTHER, MEDICAID, SELFPAY | PROVIDERS: PCP Family Medicine; Visit Provider Student in an Organized Health Care Education/Training Program | DX: X58.XXXA Exposure to other specified factors, initial encounter (principal); S82.391A Other fracture of lower end of right tibia, initial encounter for closed fracture; S82.831A Other fracture of upper and lower end of right fibula, initial encounter for closed fracture | CPT/HCPCS: 73590; 99024 ==

== ENCOUNTER 2022-06-07 15:03 | Outpatient (CLI) | payer OTHER, MEDICAID, SELFPAY | END 2022-06-07 15:04 | disposition home or self-care (01) | LOC: SPT 15:05 | PROVIDERS: PCP Family Medicine; Visit Provider Student in an Organized Health Care Education/Training Program | DX: Z47.89 Encounter for other orthopedic aftercare (principal) | CPT/HCPCS: 97760; L4361 ==

== ENCOUNTER 2022-06-22 06:00 | Outpatient (RCR) | payer OTHER, MEDICAID, SELFPAY | END 2022-06-24 23:59 | disposition home or self-care (01) | LOC: SPT 06:00 | PROVIDERS: PCP Family Medicine; Visit Provider Student in an Organized Health Care Education/Training Program | DX: S82.221D Displaced transverse fracture of shaft of right tibia, subsequent encounter for closed fracture with routine healing (principal); X58.XXXD Exposure to other specified factors, subsequent encounter; Z98.890 Other specified postprocedural states; M25.671 Stiffness of right ankle, not elsewhere classified; R26.81 Unsteadiness on feet | CPT/HCPCS: 97110; 97161 ==

== ENCOUNTER 2022-06-25 06:00 | Outpatient (RCR) | payer OTHER, MEDICAID, SELFPAY | END 2022-07-25 23:59 | disposition home or self-care (01) | LOC: SPT 06:00 | PROVIDERS: PCP Family Medicine; Visit Provider Student in an Organized Health Care Education/Training Program | DX: S82.221D Displaced transverse fracture of shaft of right tibia, subsequent encounter for closed fracture with routine healing (principal); X58.XXXD Exposure to other specified factors, subsequent encounter | CPT/HCPCS: 97110 ==

== ENCOUNTER → 2022-07-11 10:01 | Outpatient (BNVA) | payer OTHER, MEDICAID, SELFPAY | PROVIDERS: PCP Family Medicine; Visit Provider Student in an Organized Health Care Education/Training Program | DX: S82.201A Unspecified fracture of shaft of right tibia, initial encounter for closed fracture (principal); X58.XXXA Exposure to other specified factors, initial encounter; S82.391A Other fracture of lower end of right tibia, initial encounter for closed fracture; S82.831A Other fracture of upper and lower end of right fibula, initial encounter for closed fracture | CPT/HCPCS: 73590; 99024 ==

== ENCOUNTER 2022-07-26 06:00 | Outpatient (RCR) | payer OTHER, MEDICAID, SELFPAY | END 2022-08-24 23:59 | disposition home or self-care (01) | LOC: SPT 06:00 | PROVIDERS: PCP Family Medicine; Visit Provider Student in an Organized Health Care Education/Training Program | DX: S82.221D Displaced transverse fracture of shaft of right tibia, subsequent encounter for closed fracture with routine healing (principal); X58.XXXD Exposure to other specified factors, subsequent encounter | CPT/HCPCS: 97110 ==

== ENCOUNTER → 2022-08-02 09:02 | Outpatient (BNVA) | payer OTHER, MEDICAID, SELFPAY | PROVIDERS: PCP Family Medicine; Visit Provider Student in an Organized Health Care Education/Training Program | DX: Z98.890 Other specified postprocedural states (principal); S82.391D Other fracture of lower end of right tibia, subsequent encounter for closed fracture with routine healing; S82.831D Other fracture of upper and lower end of right fibula, subsequent encounter for closed fracture with routine healing; S82.201D Unspecified fracture of shaft of right tibia, subsequent encounter for closed fracture with routine healing; X58.XXXD Exposure to other specified factors, subsequent encounter | CPT/HCPCS: 73590; 99024 ==

== ENCOUNTER 2022-08-25 06:00 | Outpatient (RCR) | payer OTHER, MEDICAID, SELFPAY | END 2022-09-24 23:59 | disposition home or self-care (01) | LOC: SPT 06:00 | PROVIDERS: PCP Family Medicine; Visit Provider Student in an Organized Health Care Education/Training Program | DX: S82.221D Displaced transverse fracture of shaft of right tibia, subsequent encounter for closed fracture with routine healing (principal); Z98.890 Other specified postprocedural states; M25.671 Stiffness of right ankle, not elsewhere classified; R26.81 Unsteadiness on feet; X58.XXXD Exposure to other specified factors, subsequent encounter | CPT/HCPCS: 64615; 95911; 97110; J0585 ==

== ENCOUNTER → 2022-08-25 11:25 | Outpatient (BNVA) | payer OTHER, MEDICAID, SELFPAY | PROVIDERS: PCP Family Medicine; Visit Provider Specialist | DX: G43.709 Chronic migraine without aura, not intractable, without status migrainosus (principal) | CPT/HCPCS: 64615; 95911; 97110; J0585 ==

== ENCOUNTER → 2022-09-13 10:35 | Outpatient (BNVA) | payer OTHER, MEDICAID, SELFPAY | PROVIDERS: PCP Family Medicine; Visit Provider Student in an Organized Health Care Education/Training Program | DX: M70.50 Other bursitis of knee, unspecified knee (principal); S82.391A Other fracture of lower end of right tibia, initial encounter for closed fracture; S82.831A Other fracture of upper and lower end of right fibula, initial encounter for closed fracture; S82.201A Unspecified fracture of shaft of right tibia, initial encounter for closed fracture; X58.XXXA Exposure to other specified factors, initial encounter | CPT/HCPCS: 20610; 73590; 99213 ==

== ENCOUNTER → 2022-10-27 14:10 | Outpatient (BNVA) | payer OTHER, MEDICAID, SELFPAY | PROVIDERS: PCP Family Medicine; Visit Provider Student in an Organized Health Care Education/Training Program | DX: S82.201G Unspecified fracture of shaft of right tibia, subsequent encounter for closed fracture with delayed healing (principal); X58.XXXD Exposure to other specified factors, subsequent encounter | CPT/HCPCS: 73590; 99214 ==

== ENCOUNTER 2022-11-04 06:17 | Day surgery (SDC) | payer OTHER, MEDICAID, SELFPAY ==
[2022-11-04] VITALS (8 sets, daily range): BP systolic 83–112; BP diastolic 51–71; PULSE 67–87; RESP 10–18; TEMP 36.1–36.6; O2SAT 97–100
--- NOTE | 2022-11-04 06:46 | W.PM.OPSUD ---
Surgery/Procedure H&P Update DATE OF PROCEDURE: November 04, 2022 DATE H&P PERFORMED: 10/27/22 CHANGES TO PREVIOUS DOCUMENTATION: None PREOP DIAGNOSIS: Right tibial shaft delayed union PRIMARY INDICATION FOR PROCEDURE: Patient has right tibial shaft delayed nonunion. She is has steadily had slow improvement in her callus formation but still fracture line noted and slight tenderness to palpation this area. She has been weightbearing. She has a history of smoking. At this point time we talked about her treatment options ultimately feel she would greatly benefit from nail dynamization and removal of our static screw proximally. She will be planned to be weightbearing as tolerated proximally. I feel like this is can only help encourage her bone opposition and stimulate further callus formation. Patient understands the risk benefits complication alternatives surgical and nonsurgical treatment options. Understanding her wrist she agrees to proceed with surgical intervention. All questions answered. She will follow-up with me in the office in 2 weeks after surgery. PLANNED PROCEDURE: Operation Date: 11/04/22 08:00 Proposed Procedures p right tibial nail dynamisation with screw removal 57632,S82.201G(Right) - Declan Garcia DO
[2022-11-04] MEDS: sodium chloride 0.9% 1,000 ML 30 ML IV (06:53)
[2022-11-04] MEDS: acetaminophen 1,000 MG/100 ML PIGGYBACK 400 MG IV (06:53)
[2022-11-04] MEDS: ketorolac 30 mg/mL INJ IVP (06:54)
--- NOTE | 2022-11-04 06:56 | P.ANESASSM_ITS ---
Pre-Anesthetic Assessment Height/Weight: Height 1.63 m Weight 69.853 kg O2 Del Method 11/04/22 06:39 Preop Diagnosis: Right tibial shaft delayed union Operation Date: 11/04/22 08:00 Proposed Procedures p right tibial nail dynamisation with screw removal 42406,S82.201G(Right) - Declan Garcia DO Familial anesthetic complications: None Was Beta Keisha taken within 24 hours: N/A Was Clonidine taken within 24 hours: N/A Last intake: Intake Last Liquid Date 11/03/22 Last Liquid Time 23:30 Last Solid Date 11/03/22 Last Solid Time 20:00 Social No alcohol and No tobacco Exam alert, oriented x 3, clear to auscultation bilaterally and regular rate & rhythm Airway Mallampati: Class II Dentition: false GI Gastroesophageal Reflux Disease Musc/skel Fibromyalgia Anesthetic Plan ASA status: 2 Anesthesia: MAC Risk of > 500 ml blood loss (7ml/kg in children): No Medications/Allergies Home Medications Medication Instructions Recorded Confirmed Last Taken Type pantoprazole 40 mg tablet,delayed 40 mg PO DAILY@1000 10/23/19 11/03/22 11/03/22 History release (Protonix) promethazine 25 mg tablet 25 mg PO Q6H PRN n/v 10/23/19 11/03/22 10/20/22 History venlafaxine 150 mg 150 mg PO DAILY@1000 10/23/19 11/03/22 11/03/22 History capsule,extended release 24 hr (Effexor XR) cetirizine 10 mg capsule (Zyrtec) 10 mg PO DAILY PRN allergies 11/07/19 11/03/22 11/03/22 History metaxalone 800 mg tablet 800 mg PO TID PRN muscle spasms 10/22/20 11/03/22 Unknown History estradiol 10 mcg vaginal tablet 10 mcg vaginal .COMPLEX 10 months 12/29/21 11/03/22 11/03/22 Rx (Yuvafem) #40 tabs medroxyprogesterone 2.5 mg tablet 2.5 mg PO DAILY@2200 #90 tabs 12/29/21 11/03/22 11/03/22 Rx potassium chloride 8 mEq 8 meq PO DAILY 05/29/22 11/03/22 11/03/22 History tablet,extended release topiramate 100 mg tablet 100 mg PO BID 05/29/22 11/03/22 11/03/22 History CAM BOOT - RIGHT #1 ea 06/07/22 10/27/22 Unknown Rx gabapentin 100 mg capsule 200 mg PO TID postop pain 14 days 07/04/22 11/04/22 Unknown Rx #84 caps oxycodone 5 mg capsule 10 mg PO Q6H PRN pain 7 days #56 07/04/22 11/03/22 Unknown Rx caps lamotrigine 25 mg tablet (Lamictal) 25 mg PO BID #60 tabs 07/20/22 11/03/22 11/03/22 Rx lace up ankle brace #1 ea 08/02/22 10/27/22 Unknown Rx estradiol 1 mg tablet 1.5 mg PO DAILY@2200 #45 tabs 10/31/22 11/03/22 11/03/22 Rx hydrocodone 5 mg-acetaminophen 325 1 tab PO 3XD PRN pain 3 days #9 11/04/22 Unknown Rx mg tablet tabs Allergies Allergy/AdvReac Type Severity Reaction Status Date / Time No Known Allergies Allergy Verified 11/04/22 06:31 Current Medications Generic Name Dose Route Start Last Admin Trade Name Freq PRN Reason Stop Dose Admin Sodium Chloride 1,000 mls @ 30 mls/hr 11/04/22 06:30 11/04/22 06:53 Sodium Chloride 0.9% IV 11/05/22 06:29 30 mls/hr .Q24H MIKAL Administration PFSH Anesthesia Medical History Cervical disc displacement Chronic back pain and takes as needed pain medication and muscle spasm medication for this managed by PMD Chronic GERD Since her 30s and is on medication-states EGD was normal Chronic migraine Since teenage years. Denies aura's Follows up with Dr. Ortega Endometriosis Previously diagnosed with endometriosis by laparoscopy. Definitively treated with LAVH and BSO on 07/04/2017. -On HRT including progesterone to help minimize recurrence of endometriosis Fracture of posterior malleolus of right tibia Fracture of right proximal fibula Fracture of tibial shaft, right, closed No pertinent past medical history Denies diabetes, asthma, seizures, hypertension, DVT/PE. PMD: Carmen parker bursitis Surgical History History of cholecystectomy (~11/2013) Laparoscopic. Performed at [facility] History of hysterectomy (07/04/17) LAVH/BSO-- Dx: Endometriosis, Chronic pelvic pain, Right ovarian cyst. Performed by Dr. Swenson at [facility] in [place], [place]. Final diagnosis: Right mucinous cystadenoma. ----> endometriosis was noted in the posterior ovarian fossa and uterosacral ligaments. History of laparoscopy (~2003) X 2 2003---Dr. Shane [address] Swenson treatment of endometriosis. Status post colonoscopy 2020 bowel problems-patient was normal Family History Father Hypertension Grandfather Heart disease paternal Colon cancer paternal, diagnosed in his late 70s Lung cancer maternal Hypertension paternal Grandmother Heart disease paternal Breast cancer paternal, diagnosed in her 50s Stroke paternal Family/Other Diabetes MATERNAL AUNT Breast cancer paternal aunt, diagnosed in her 60s Ovarian cancer paternal cousin, diagnosed in her 20s Leukemia Maternal Aunt Thyroid condition maternal cousin Mother Lung cancer Denies family history of Uterine cancer Social History Smoking and tobacco status: never smoked Data Anesthesia Cardiac Studies: No Data to Display
[2022-11-04] MEDS: ceFAZolin 2,000 MG in sodium chloride 0.9% (plus) 50 ML 100 MG IV (07:41)
[2022-11-04] MEDS: lidocaine-epi 2% 20 mL INJ INJECTION (08:00)
--- NOTE | 2022-11-04 08:04 | PM.OP2 ---
Brief Operative Note Date of procedure: 11/04/22 Pre-op diagnosis: Right tibia delayed union Post-op diagnosis: same Procedure Done: Right tibia nail dynamization with static screw removal Surgeon: Declan Garcia Estimated blood loss (mL): 1 Complications: None Post-op Plan: Patient taken to PACU in stable condition, recovering well. Receive appropriate discharge instructions as well as pain medication postoperatively. Patient follow-up with me in the office in 2 weeks. May be weightbearing as tolerated to the right lower extremity. Keep dressing clean dry and intact. Condition: stable Disposition: same day Coding Level of Care Code Acute Code for Gonzalo Walton
--- NOTE | 2022-11-04 08:05 | PM.PACU ---
PACU note Narrative: Patient taken to PACU in stable condition recovering well dressing on in place clean dry and intact. Patient is able to wiggle toes plantarflex and dorsiflex ankle. Distal pulses palpable. Exam: awake Disposition: discharged
--- NOTE | 2022-11-04 08:05 | PM.OP ---
Operative Report Date of procedure: November 04, 2022 Pre-op diagnosis: Preop Diagnosis Right tibial shaft delayed union Post-op diagnosis: Same Procedure done: Right tibial nail dynamization with static screw removal Surgeon: Declan Garcia DO Estimated blood loss: 1 cc No tourniquet was used Complications: None Condition: stable Disposition: same day Brief History: Patient is an established patient with me after sustaining a injury and fracture to her right distal third tibial shaft she underwent a tibial nail. This did have extension of the posterior malleolus she did go percutaneous screw fixation. This was performed back on . I followed her and she is been ambulating with minimal issues. She did have some pes bursitis at her last follow-up visit. She is a smoker and she did understand the possible risks of if she continues to smoke that this can cause delayed versus nonunion. At this point time she has had some interval callus formation but given the duration of time and already is from surgery that she still does not have a full union I feel as though in her best interest to help encourage bony opposition and callus formation recommend right tibial nail dynamization with removal of the proximal static screw. We saw her back in the office we talked about her treatment options ultimately I feel at this point time this would benefit patient hopefully from healing as well as removal of one of the screws as far as an irritation of her pes bursa. She understands the risk benefits complication alternatives surgical and nonsurgical treatment options. Understanding her risk of surgery she elects to proceed with surgical intervention. All questions been answered at this time she presents to the preoperative holding area for surgery with static screw removal for right tibial nail dynamization. Procedure: Patient presented to the preoperative holding area. Consent was reviewed and signed with patient correct extremity marked. She was then seen by the Anesthesia Department once cleared for surgery she is taken back to the operative suite. Patient was then transported on the OR table all bony prominences well-padded patient was appropriate secured to the bed. Nonsterile tourniquet was applied to the right upper thigh. Bone foam was placed into the right lower extremity. Underwent anesthesia per the anesthesia department once appropriately anesthetized the right lower extremity was then prepped and draped in sterile orthopedic fashion. Final timeout performed. Patient received appropriate preoperative antibiotics. Large C arm was then subsequently brought in and confirmed to find the proximal static interlocking screw. This was triangulated with a [place] and local anesthetic was injected around the previous incision site. Next a small incision was then made with 15 blade. This was made just through skin. I then introduced a hemostat to bluntly spread and come directly down over the bone and identified the proximal interlocking screw. This again was confirmed on mini C arm and multiple images to be the correct static screw to remove for dynamization of the right tibial nail. Once this was performed I took a curette to curette out any soft tissue interposition in the screw head neck selected the correct [place] screw removal set this was gently tapped to have appropriate seating of the proximal screw and then this was backed out atraumatically. Screw was then subsequently removed final x-rays taken which confirmed removal of static proximal interlocking screw with plan for right tibial nail dynamization. Wound was then thoroughly irrigated and then closed with interrupted nylon suture. Soft dressing a Silverlon was then applied. Patient was then awakened from anesthesia and taken to PACU in stable condition. No tourniquet was used during this case. Patient tolerated procedure without issues. Disposition: Patient taken to PACU in stable condition recovering well receive appropriate discharge instructions as well as pain medication postoperatively. She will be weightbearing as tolerated to the right lower extremity follow-up with me in the office in 2 weeks for incision check and suture removal. At this point time we will continue to monitor patient's fracture healing after the nail dynamization. Patient understands and agrees with current plan. All questions answered.
--- NOTE | 2022-11-04 08:56 | XR_ITS ---
WS: [id number] XR tibia fibula RT 2V [id number] REASON FOR EXAM: OR PICS FINDINGS: Pre-existing tibial intramedullary eleanor. Distalmost transverse screw has been removed from the proximal right tibial intramedullary eleanor. XR/XR tibia fibula RT 2V [id number] IMPRESSION: Hardware removal as above.
--- NOTE | 2022-11-04 14:04 | ANE.PACU2 ---
Inpatient post-anesthesia follow up: Airway intact: Yes Vital signs: Temperature 97.0 F Pulse Rate 80 Respiratory Rate 16 Blood Pressure 112/71 Pulse Oximetry 100 Oxygen Delivery Me thod Room Air Oxygen Flow Rate 6 Fraction of Inspir ed Oxygen Hydration adequate: Yes Nausea and vomiting: No Pain level: 1 Mental status: Baseline
== END 2022-11-04 09:05 | disposition home or self-care (01) ==
PROVIDERS: PCP Family Medicine; Visit Provider Student in an Organized Health Care Education/Training Program
PROC: (CPT 20680; principal; 2022-11-04 07:40)
DX: S82.201G Unspecified fracture of shaft of right tibia, subsequent encounter for closed fracture with delayed healing (principal); X58.XXXD Exposure to other specified factors, subsequent encounter; K21.9 Gastro-esophageal reflux disease without esophagitis; M79.7 Fibromyalgia
CPT/HCPCS: 20680; 73590; 76000; J0131; J0690; J1885; J2250; J2704; J3490; J7030

== ENCOUNTER → 2022-12-01 07:50 | Outpatient (BNVA) | payer OTHER, MEDICAID, SELFPAY | PROVIDERS: PCP Family Medicine; Visit Provider Specialist | DX: G43.711 Chronic migraine without aura, intractable, with status migrainosus (principal) | CPT/HCPCS: 64615; J0585 ==

== ENCOUNTER → 2022-12-02 07:08 | Outpatient (BNVA) | payer OTHER, MEDICAID, SELFPAY | PROVIDERS: PCP Family Medicine; Visit Provider Student in an Organized Health Care Education/Training Program | DX: Z98.890 Other specified postprocedural states (principal) | CPT/HCPCS: 73590; 99024 ==

== ENCOUNTER 2023-01-19 16:23 | Outpatient (CLI) | payer OTHER, MEDICAID, SELFPAY ==
--- NOTE | 2023-01-19 16:32 | XRR_ITS ---
PROCEDURE INFORMATION: Exam: XR Chest Exam date and time: 01/19/2023 4:37 PM Age: 42 years old Clinical indication: Cough TECHNIQUE: Imaging protocol: Radiologic exam of the chest. Views: 2 views. COMPARISON: CR XR chest 1V portable [id number] 08/28/2021 2:47 AM FINDINGS: Lungs: Unremarkable. No consolidation. Pleural spaces: Unremarkable. No pleural effusion. No pneumothorax. Heart/Mediastinum: Unremarkable. No cardiomegaly. Bones/joints: Unremarkable. XR/XR chest 2V* [id number] IMPRESSION: No acute findings.
== END 2023-01-19 16:24 | disposition home or self-care (01) ==
LOC: RAD 16:28
PROVIDERS: PCP Family Medicine; Visit Provider Family Medicine
DX: R05.3 Chronic cough (principal)
CPT/HCPCS: 71046

== ENCOUNTER 2023-03-02 15:25 | Outpatient (CLI) | payer OTHER, MEDICAID, SELFPAY ==
--- NOTE | 2023-03-02 15:36 | MM_ITS ---
WS: [id number] Bilateral screening 3D tomosynthesis digital mammogram, 03/02/2023 Clinical Data: Z12.39 - Encounter for other screening for malignant neop... Comparison: 01/11/2022, 12/25/2020, 05/24/2019, 09/08/2010. Findings: The breast parenchymal pattern shows heterogeneous density. No spiculated masses or clustered calcifi cations are seen. There are no secondary signs of carcinoma. MM/[place] [id number] Impression: 1. Negative bilateral mammogram unchanged. 2. Recommend annual screening mammograms. BIRADS: 1-Negative FOLLOW UP: 1 Year Follow-up The CAD unloading checker was used.
== END 2023-03-02 15:26 | disposition home or self-care (01) ==
PROVIDERS: PCP Family Medicine; Visit Provider Family Medicine
DX: Z12.31 Encounter for screening mammogram for malignant neoplasm of breast (principal)
CPT/HCPCS: 77063; 77067

== ENCOUNTER → 2023-03-09 07:52 | Outpatient (BNVA) | payer OTHER, MEDICAID, SELFPAY | PROVIDERS: PCP Family Medicine; Referring Provider Specialist; Visit Provider Specialist | DX: G43.711 Chronic migraine without aura, intractable, with status migrainosus (principal) | CPT/HCPCS: 64615; J0585 ==

== ENCOUNTER → 2023-03-20 07:18 | Outpatient (BNVA) | payer OTHER, MEDICAID, SELFPAY | PROVIDERS: PCP Family Medicine; Visit Provider Student in an Organized Health Care Education/Training Program | DX: S82.831D Other fracture of upper and lower end of right fibula, subsequent encounter for closed fracture with routine healing (principal); S82.391D Other fracture of lower end of right tibia, subsequent encounter for closed fracture with routine healing; S82.201G Unspecified fracture of shaft of right tibia, subsequent encounter for closed fracture with delayed healing; X58.XXXD Exposure to other specified factors, subsequent encounter | CPT/HCPCS: 73590; 99213 ==

== ENCOUNTER → 2023-06-08 07:41 | Outpatient (BNVA) | payer OTHER, MEDICAID, SELFPAY | PROVIDERS: PCP Family Medicine; Visit Provider Specialist | DX: G43.711 Chronic migraine without aura, intractable, with status migrainosus (principal) | CPT/HCPCS: 64615; J0585 ==

== ENCOUNTER → 2023-08-29 11:32 | Outpatient (BNVA) | payer OTHER, MEDICAID, SELFPAY | PROVIDERS: PCP Family Medicine; Visit Provider Student in an Organized Health Care Education/Training Program | DX: M25.571 Pain in right ankle and joints of right foot (principal); S82.201D Unspecified fracture of shaft of right tibia, subsequent encounter for closed fracture with routine healing; X58.XXXD Exposure to other specified factors, subsequent encounter | CPT/HCPCS: 73590; 99213 ==

== ENCOUNTER → 2023-08-31 08:00 | Outpatient (BNVA) | payer OTHER, MEDICAID, SELFPAY | PROVIDERS: PCP Family Medicine; Visit Provider Specialist | DX: G43.711 Chronic migraine without aura, intractable, with status migrainosus (principal) | CPT/HCPCS: 64615; 64643; J0585 ==

== ENCOUNTER 2023-09-26 15:55 | Outpatient (CLI) | payer OTHER, MEDICAID, SELFPAY ==
--- NOTE | 2023-09-26 16:04 | XR_ITS ---
WS: [id number] Chest 2 views, 09/26/2023 Clinical Data: Bronchitis Comparison: Two-view chest, 01/19/2023 Findings: No nodules, masses or effusions are seen. The heart is normal. The pulmonary vascularity is not increased. No pneumonia or pneumothorax is seen. Impression: Negative chest.
== END 2023-09-26 15:56 | disposition home or self-care (01) ==
LOC: RAD 15:57
PROVIDERS: PCP Family Medicine; Visit Provider Nurse Practitioner Family
DX: J41.1 Mucopurulent chronic bronchitis (principal)
CPT/HCPCS: 71046

== ENCOUNTER → 2023-11-30 08:05 | Outpatient (BNVA) | payer OTHER, MEDICAID, SELFPAY | PROVIDERS: PCP Family Medicine; Visit Provider Specialist | DX: G43.711 Chronic migraine without aura, intractable, with status migrainosus (principal) | CPT/HCPCS: 64615; J0585 ==

== ENCOUNTER 2023-12-01 07:16 | Oncology outpatient (recurring) (ONCR) | payer OTHER, MEDICAID, SELFPAY ==
[2023-12-01 07:43] VITALS: BP 103/67; PULSE 88; RESP 16; TEMP 36.7; O2SAT 92
[2023-12-01] MEDS: ondansetron 2 mg/ML SDV 2 mL 4 MG IVP (08:25)
[2023-12-01] MEDS: diphenhydrAMINE 50 mg/mL SDV 1mL 25 MG IVP (08:30)
--- NOTE | 2023-12-01 08:33 | PC.NURSE ---
at start of DHE protocol patient reports pain level at 3/10.
[2023-12-01] MEDS: dihydroergotamine 1 mg/mL Inj 0.5 MG IVP ×3 (08:43→09:37)
[2023-12-01 08:52] VITALS: BP 119/72; PULSE 72; RESP 16; O2SAT 96
--- NOTE | 2023-12-01 09:19 | PC.NURSE ---
patient reports that her pain is still at 3/10, next dose of DHE protocol given.
[2023-12-01 09:20] VITALS: BP 111/77; PULSE 83; RESP 16; O2SAT 93
[2023-12-01 09:47] VITALS: BP 108/73; PULSE 71; RESP 16; O2SAT 90
--- NOTE | 2023-12-01 09:47 | PC.NURSE ---
patient reports her pain is 1/10, next dose of DHE protocol given.
[2023-12-01 09:58] VITALS: BP 91/63; PULSE 67; RESP 16; O2SAT 94
--- NOTE | 2023-12-01 10:00 | PC.NURSE ---
patient reports no pain at this time. patient discharged home.
== END 2023-12-24 23:59 | disposition home or self-care (01) ==
PROVIDERS: PCP Family Medicine; Visit Provider Specialist
DX: G43.711 Chronic migraine without aura, intractable, with status migrainosus (principal); Z53.9 Procedure and treatment not carried out, unspecified reason
CPT/HCPCS: 96375; J1110; J1200; J2405

== ENCOUNTER 2024-01-20 11:18 | Emergency (ER) | payer OTHER, MEDICAID, SELFPAY ==
[2024-01-20 11:49] VITALS: BP 112/75; PULSE 97; RESP 16; TEMP 36.7; O2SAT 96
--- NOTE | 2024-01-20 13:30 | ED_ITS ---
Documented by User: SHE Marshall 01/20/24 14:28 HPI - Headache General: Chief Complaint: Headache Stated Complaint: headache, N Time Seen by Provider: 01/20/24 13:10 Source: patient Mode of arrival: ambulatory Limitations: no limitations History of Present Illness: Patient is a 43-year-old female presenting to the emergency department complaining of migraine headache for the past couple days. She notes a history of migraine headaches, states this feels the same just worse than normal and she has not been able to control at home with Tylenol and ibuprofen or ice packs. She denies any visual changes, weakness or numbness on one side of the body, or any other neurovascular issues. She is noting some associated neck pain and states that her migraine is worsened with bright lights. She notes that she used to be on prophylactic Topamax and Cymbalta, but notes stopping this a couple months ago. She does see Dr. Ortega for Botox shots periodically. No other symptoms to report at this time. MD elicited complaint: migraine Pertinent past history: migraines Onset (ago): day(s) Onset description: suddenly Location: diffuse and neck Severity: severe Quality & Timing: aching and throbbing Exacerbating factors: light Relieving factors: nothing Associated symptoms: Reports no associated symptoms; Deny chest pain, fever(s), lightheadedness, nausea, rash or vomiting Treatments prior to arrival: acetaminophen and ibuprofen Review of Systems General: Reports: 10 or more systems reviewed and unremarkable except in HPI and below Const: Denies: fever(s), chills or fatigue Eyes: Denies: change in vision ENMT: Denies: throat pain, ear or mastoid pain or nasal discharge Card: Denies: chest pain, palpitations, swelling of feet/ankles or lightheadedness Resp: Denies: dyspnea, productive cough or wheezing GI: Denies: abdominal pain, nausea, vomiting, diarrhea or constipation : Denies: flank pain, difficulty voiding, dysuria or urinary frequency Musc: Reports: neck pain; Denies: back pain or joint pain Skin/Breast: Denies: rash Neuro: Reports: headache(s); Denies: numbness in extremities or weakness in extremities PFS ED PFSH: Medical History Pes anserine bursitis Fracture of posterior malleolus of right tibia Fracture of right proximal fibula Fracture of tibial shaft, right, closed No pertinent past medical history Denies diabetes, asthma, seizures, hypertension, DVT/PE. PMD: Carmen Cruz Cervical disc displacement Chronic back pain and takes as needed pain medication and muscle spasm medication for this managed by PMD Chronic GERD Since her 30s and is on medication-states EGD was normal Endometriosis Previously diagnosed with endometriosis by laparoscopy. Definitively treated with LAVH and BSO on 07/04/2017. -On HRT including progesterone to help minimize recurrence of endometriosis Chronic migraine Surgical History Status post colonoscopy 2020 bowel problems-patient was normal History of laparoscopy (~2003) X 2 2003---Dr. Shane and [address] Swenson treatment of endometriosis. History of cholecystectomy (~11/2013) Laparoscopic. Performed at [facility] History of hysterectomy (07/04/17) LAVH/BSO-- Dx: Endometriosis, Chronic pelvic pain, Right ovarian cyst. Performed by Dr. Swenson at [facility] in [place], [place]. Final diagnosis: Right mucinous cystadenoma. ----> endometriosis was noted in the posterior ovarian fossa and uterosacral ligaments. Family History Father Hypertension Grandfather Heart disease paternal Colon cancer paternal, diagnosed in his late 70s Lung cancer maternal Hypertension paternal Grandmother Heart disease paternal Breast cancer paternal, diagnosed in her 50s Stroke paternal Family/Other Diabetes MATERNAL AUNT Breast cancer paternal aunt, diagnosed in her 60s Ovarian cancer paternal cousin, diagnosed in her 20s Leukemia Maternal Aunt Thyroid disease maternal cousin Mother Lung cancer Denies family history of Uterine cancer Social History Smoking and tobacco/nicotine status: never used tobacco/nicotine Substance/Drug Use: never Physical Exam Const: COMMON NORMALS: patient oriented x3 and no limitations GENERAL APPEARANCE: cooperative and well developed ORIENTATION/CONSCIOUSNESS: Yes awake, Yes oriented to person, Yes oriented to place and Yes oriented to time OTHER: Patient covering eyes in dark room upon examination HENMT: COMMON NORMALS: normocephalic, atraumatic and hearing grossly normal bilaterally HEAD & SCALP: normocephalic and atraumatic Eye: COMMON NORMALS: Equal, round and reactive pupils present, EOMs intact bilaterally and conjunctivae normal CONJUNCTIVA: Yes conjunctivae normal PUPIL: Yes Equal, round and reactive pupils present Neck/C-Spine: COMMON NORMALS: full ROM, supple and no JVD Resp: COMMON NORMALS: normal respiratory effort, No retractions, No use of accessory muscles and clear to auscultation bilaterally AUSCULTATION: clear to auscultation bilaterally Cardio: COMMON NORMALS: no JVD, regular rate, regular rhythm, No clicks present (Cardio), No murmurs present (Cardio) and No rub (Cardio) RATE: regular rate RHYTHM: regular rhythm Back/Pelvis: COMMON NORMALS: thoracic and lumbar spine normal to inspection, no thoracic nor lumbar tenderness and thoraco-lumbar ROM normal Extremity: COMMON NORMALS: normal to inspection, full ROM and capillary refill normal Neuro: COMMON NORMALS: patient oriented x3, CN's II-XII intact bilaterally, moves all extremities, no focal motor deficits and no sensory deficits noted SENSORIUM/ORIENTATION: Yes oriented to person, Yes oriented to place and Yes oriented to time Psych: COMMON NORMALS: mental status grossly normal and Normal thought process present THOUGHT PROCESS: Normal thought process present Skin: COMMON NORMALS: no rashes or lesions noted GENERAL SKIN EXAM: no rashes or lesions noted Course Vital Signs: Vital signs: Vital Signs Temperature 98.1 F 01/20/24 11:49 Pulse Rate 85 01/20/24 14:45 Respiratory Rate 16 01/20/24 14:45 Blood Pressure 112/75 01/20/24 11:49 Pulse Oximetry 98 01/20/24 14:45 Oxygen Delivery Me thod Room Air 01/20/24 11:49 MDM - Headache Medical Decision Making Patient presents with migraine headache, stating that it is worse than her usual. However, she had no neurological complaints or any concerning symptoms that warranted CT of the head. Her vitals were normal on arrival and examination essentially unremarkable with complete neurological evaluation being normal. I started her on a migraine cocktail, and upon recheck states that her headache was gone. I informed her to follow-up with Dr. Ortega to potentially discuss prophylactic treatment that would work for her, to which she agrees and will follow-up next week. She states she is ready to discharge home, she will be discharged after fluids finished. Strict return precautions given. No radiology studies performed this visit Discharge Plan Discharge Patient Disposition: Home Clinical Impression: Migraine Qualifiers: Migraine type: unspecified Status migrainosus presence: with status migrainosus Intractability: intractable Qualified Code(s): G43.911 - Migraine, unspecified, intractable, with status migrainosus Condition: Stable Prescriptions: No Action pantoprazole [Protonix] 40 mg tablet,delayed release (DR/EC) 40 mg PO DAILY montelukast [Singulair] 10 mg tablet 10 mg PO DAILY propranolol 20 mg tablet 20 mg PO BID Qty: 60 5RF potassium chloride 8 mEq Tablet Extended Release 8 meq PO DAILY lamotrigine 25 mg tablet 25 mg PO BID estradiol 1 mg tablet 1.5 mg PO QPM promethazine 25 mg tablet 25 mg PO Q6H PRN (Reason: Nausea And Vomiting) duloxetine 30 mg capsule,delayed release(DR/EC) 30 mg PO DAILY duloxetine 60 mg capsule,delayed release(DR/EC) 60 mg PO DAILY levocetirizine 5 mg tablet 5 mg PO DAILY azelastine 137 mcg (0.1 %) aerosol,spray 1 spray INTRANASAL BID fluticasone propionate 50 mcg/actuation spray,suspension 1 spray INTRANASAL BID Discharge Orders: Discharge ED (Routine); Ordered 01/20/24 Ordered By: Karri Arreola Referrals: Ramya Messer DO [Primary Care Provider] - Discharge Diet: Usual diet Discharge Activity: Increase activity as tolerated Patient Instructions: Migraine Headache (ED) Activity Restrictions/Additional Instructions: Plenty of fluids. Avoid potential triggers for migraines. Follow-up with Dr. Ortega or primary care as discussed. Please return if you have any new or worsening symptoms. Coding Level of Care Code ED Grading Machine Operator for Chg Fwd Documented by User: Derek Mustafa DO 01/24/24 09:06 HPI - Headache General: Chief Complaint: Headache Stated Complaint: headache, N Time Seen by Provider: 01/20/24 13:10 [facility] ED PFSH: Medical History Pes anserine bursitis Fracture of posterior malleolus of right tibia Fracture of right proximal fibula Fracture of tibial shaft, right, closed No pertinent past medical history Denies diabetes, asthma, seizures, hypertension, DVT/PE. PMD: Carmen Cruz Cervical disc displacement Chronic back pain and takes as needed pain medication and muscle spasm m edication for this managed by PMD Chronic GERD Since her 30s and is on medication-states EGD was normal Endometriosis Previously diagnosed with endometriosis by laparoscopy. Definitively treated with LAVH and BSO on 07/04/2017. -On HRT including progesterone to help minimize recurrence of endometriosis Chronic migraine Surgical History Status post colonoscopy 2020 bowel problems-patient was normal History of laparoscopy (~2003) X 2 2003---Dr. Shane and [address] Swenson treatment of endometriosis. History of cholecystectomy (~11/2013) Laparoscopic. Performed at [facility] History of hysterectomy (07/04/17) LAVH/BSO-- Dx: Endometriosis, Chronic pelvic pain, Right ovarian cyst. Performed by Dr. Swenson at [facility] in [place], [place]. Final diagnosis: Right mucinous cystadenoma. ----> endometriosis was noted in the posterior ovarian fossa and uterosacral ligaments. Family History Father Hypertension Grandfather Heart disease paternal Colon cancer paternal, diagnosed in his late 70s Lung cancer maternal Hypertension paternal Grandmother Heart disease paternal Breast cancer paternal, diagnosed in her 50s Stroke paternal Family/Other Diabetes MATERNAL AUNT Breast cancer paternal aunt, diagnosed in her 60s Ovarian cancer paternal cousin, diagnosed in her 20s Leukemia Maternal Aunt Thyroid disease maternal cousin Mother Lung cancer Denies family history of Uterine cancer Social History Smoking and tobacco/nicotine status: never used tobacco/nicotine Substance/Drug Use: never Course Vital Signs: Vital signs: Vital Signs Temperature 98.1 F 01/20/24 11:49 Pulse Rate 85 01/20/24 14:45 Respiratory Rate 16 01/20/24 14:45 Blood Pressure 112/75 01/20/24 11:49 Pulse Oximetry 98 01/20/24 14:45 Oxygen Delivery Me thod Room Air 01/20/24 11:49 MDM - Headache Medical Decision Making Patient presents with migraine headache, stating that it is worse than her usual. However, she had no neurological complaints or any concerning symptoms that warranted CT of the head. Her vitals were normal on arrival and examination essentially unremarkable with complete neurological evaluation being normal. I started her on a migraine cocktail, and upon recheck states that her headache was gone. I informed her to follow-up with Dr. Ortega to potentially discuss prophylactic treatment that would work for her, to which she agrees and will follow-up next week. She states she is ready to discharge home, she will be discharged after fluids finished. Strict return precautions given. Chart reviewed Discharge Plan Discharge Patient Disposition: Home Clinical Impression: Migraine Qualifiers: Migraine type: unspecified Status migrainosus presence: with status migrainosus Intractability: intractable Qualified Code(s): G43.911 - Migraine, unspecified, intractable, with status migrainosus Condition: Stable Prescriptions: No Action pantoprazole [Protonix] 40 mg tablet,delayed release (DR/EC) 40 mg PO DAILY montelukast [Singulair] 10 mg tablet 10 mg PO DAILY propranolol 20 mg tablet 20 mg PO BID Qty: 60 5RF potassium chloride 8 mEq Tablet Extended Release 8 meq PO DAILY lamotrigine 25 mg tablet 25 mg PO BID estradiol 1 mg tablet 1.5 mg PO QPM promethazine 25 mg tablet 25 mg PO Q6H PRN (Reason: Nausea And Vomiting) duloxetine 30 mg capsule,delayed release(DR/EC) 30 mg PO DAILY duloxetine 60 mg capsule,delayed release(DR/EC) 60 mg PO DAILY levocetirizine 5 mg tablet 5 mg PO DAILY azelastine 137 mcg (0.1 %) aerosol,spray 1 spray INTRANASAL BID fluticasone propionate 50 mcg/actuation spray,suspension 1 spray INTRANASAL BID Discharge Orders: Discharge ED (Routine); Ordered 01/20/24 Ordered By: Karri Arreola Referrals: Ramya Messer DO [Primary Care Provider] - Discharge Diet: Usual diet Discharge Activity: Increase activity as tolerated Patient Instructions: Migraine Headache (ED) Activity Restrictions/Additional Instructions: Plenty of fluids. Avoid potential triggers for migraines. Follow-up with Dr. Ortega or primary care as discussed. Please return if you have any new or worsening symptoms. Coding Level of Care Code ED Grading Machine Operator for Gonzalo Walton
[2024-01-20] MEDS: metoclopramide 5 mg/mL SDV 2 mL 10 MG IVP (13:37)
[2024-01-20] MEDS: ketorolac 60 mg/2 mL INJ 30 MG IVP (13:38)
[2024-01-20] MEDS: diphenhydrAMINE 50 mg/mL SDV 1mL IVP (13:39)
[2024-01-20] MEDS: dexamethasone 10 mg/mL INJ 8 MG IVP (13:40)
[2024-01-20] MEDS: sodium chloride 0.9% 1,000 ML 999 ML IV (13:41)
[2024-01-20 14:45] VITALS: PULSE 85; RESP 16; O2SAT 98
== END 2024-01-20 14:46 | disposition home or self-care (01) ==
PROVIDERS: Emergency Provider Physician Assistant; PCP Family Medicine
DX: G43.911 Migraine, unspecified, intractable, with status migrainosus (principal)
CPT/HCPCS: 96361; 96374; 96375; 99284; J1100; J1200; J1885; J2765; J7030

== ENCOUNTER → 2024-03-14 14:45 | Outpatient (BNVA) | payer OTHER, MEDICAID, SELFPAY | PROVIDERS: PCP Family Medicine; Visit Provider Specialist | DX: G43.711 Chronic migraine without aura, intractable, with status migrainosus (principal) | CPT/HCPCS: 64615; J0585 ==

== ENCOUNTER 2024-03-21 15:30 | Outpatient (CLI) | payer OTHER, MEDICAID, SELFPAY ==
--- NOTE | 2024-03-21 16:02 | MM_ITS ---
WS: [id number] VIEWS: MLO and CC views both breasts. 3D digital tomosynthesis is also included in this exam. Comparison made with prior exam of 05/24/2019, 12/25/2020, 01/11/2022, 03/02/2023.. Findings: There was no sign of mass, architectural distortion or suspicious calcification in either breast. The breasts are heterogeneously dense which may obscure small masses MM/[place] [id number] Impression: BI-RADS: 1-Negative FOLLOW-UP: 1 Year Follow-up This mammogram was also analyzed by the Computer Aided Detection System R2 Imag e Greenskeeper Supervisor.
== END 2024-03-21 15:44 | disposition home or self-care (01) ==
PROVIDERS: PCP Family Medicine; Visit Provider Family Medicine
DX: Z12.31 Encounter for screening mammogram for malignant neoplasm of breast (principal); R92.333 Mammographic heterogeneous density, bilateral breasts
CPT/HCPCS: 77063; 77067

== ENCOUNTER → 2024-03-27 08:00 | Outpatient (BNVA) | payer OTHER, MEDICAID, SELFPAY | PROVIDERS: PCP Family Medicine; Visit Provider Nurse Practitioner Family | DX: L81.1 Chloasma (principal); W89.1XXA Exposure to tanning bed, initial encounter; L57.0 Actinic keratosis; L57.8 Other skin changes due to chronic exposure to nonionizing radiation; L81.4 Other melanin hyperpigmentation | CPT/HCPCS: 17000; 99204 ==

== ENCOUNTER → 2024-06-20 12:51 | Outpatient (BNVA) | payer OTHER, MEDICAID, SELFPAY | PROVIDERS: PCP Family Medicine; Visit Provider Specialist | DX: G43.709 Chronic migraine without aura, not intractable, without status migrainosus (principal); G43.711 Chronic migraine without aura, intractable, with status migrainosus | CPT/HCPCS: 64615; J0585 ==

== ENCOUNTER 2024-08-08 07:39 | Outpatient (CLI) | payer OTHER, MEDICAID, SELFPAY ==
--- NOTE | 2024-08-08 07:43 | US_ITS ---
WS: [id number] Complete ABDOMINAL ULTRASOUND HISTORY: ABDOMINAL PAIN COMPARISON: 10/29/2013 Liver: 18.3 cm in length. Liver is slightly enlarged. Surface of the liver is irregular and nodular. No mass. Liver is also slightly dense and heterogeneous. Portal Vein: Normal hepatopetal flow with monophasic waveform. Gallbladder: Prior cholecystectomy. CBD: 0.7 cm Pancreas: Normal size and echogenicity. Right kidney: 11.0 cm x 5.5 x 3.8 cm. Cortex:1.1 cm. Normal size and echogenicity. No hydronephrosis or mass. Left kidney: 10.9 cm x 4.7 cm x 5.2 cm. Cortex: 1.0 cm. Normal size and echogenicity. No hydronephrosis or mass. Spleen: 13.1 cm. Normal size and echogenicity. Aorta and IVC: Unremarkable abdominal aorta and IVC. US/US abdomen complete* [id number] Impression: 1. Prior cholecystectomy. 2. Common bile duct is top normal size. No intrahepatic dilatation. 3. Cirrhotic liver. Surface changes along the liver have progressed since 2013 . No hepatic mass.
== END 2024-08-08 07:40 | disposition home or self-care (01) ==
LOC: RAD 07:39
PROVIDERS: PCP Family Medicine; Visit Provider Family Medicine
DX: K74.60 Unspecified cirrhosis of liver (principal); Z90.49 Acquired absence of other specified parts of digestive tract
CPT/HCPCS: 76700

== ENCOUNTER 2024-08-20 13:27 | Observation (INO) | payer OTHER, MEDICAID, SELFPAY ==
[2024-08-12 11:09] LABS: Bilirubin Urine Negative (Negative); Blood Urine Negative (Negative); Glucose Urine UA Negative (Normal); Ketones Urine Negative (Negative); Leukocyte Esterase Urine Negative (Negative); Nitrate Urine Negative (Negative); Protein Urine Negative (Negative); Specific Gravity, Urine 1.023 (1.005-1.030); Urine Appearance Clear (CLEAR); Urine Color Yellow (Yellow); pH Urine 5.5 (5-7)
[2024-08-12 11:10] LABS: Basophils # 0.1 10^3/uL (0.0-0.1); Basophils % 0.9 %; Eosinophils # 0.4 10^3/uL (0.0-0.8); Eosinophils % 3.9 %; Hematocrit 38.1 % (36-47); Lymphocytes # 2.5 10^3/uL (0.8-4.8); Mean Corpuscular HGB Conc 33.3 g/dL (30-55); Mean Corpuscular Hemoglobin 29.4 pg (27-33); Mean Corpuscular Volume 88.2 fl (85-98); Mean Platelet Volume 9.6 fL (7.4-10.4); Monocytes # 0.7 10^3/uL (0.2-0.9); Monocytes % 7.5 %; Neutrophils % 59.4 %; Nucleated Red Blood Cells % 0 %; Platelet Count 278 10^3/cmm (157-399); Red Blood Count 4.32 10^6/uL (3.85-5.65); Red Cell Distribution Width 14.5 % (12.1-15.1); White Blood Count 9.08 10^3/uL (3.29-11.43)
[2024-08-12 11:12] LABS: Add Urine Microscopic? YES; Bacteria Urine None Seen /hpf; Hyaline Casts Urine 0-4 /lpf; WBC Urine 0-5 /hpf (0-5)
--- NOTE | 2024-08-12 11:23 | ANES.PREANE2 ---
Pre-Anesthetic Assessment Height/Weight: Height 1.63 m Preop Diagnosis: cystocele, rectocele, mixed incontinence Operation Date: 08/20/24 12:10 Proposed Procedures p Anterior Repair Anterior Colporrhaphy 44162, 99397, N81.10, N81. 6(Not Applicable) - Cirilo Ellsworth MD s Posterior Repair Posterior Colporrhaphy(Not Applicable) - Cirilo Ellsworth MD s Sling Single Incision Midurethral Sling(Not Applicable) - Cirilo Ellsworth MD Familial anesthetic complications: none Social No alcohol and No tobacco Exam alert, oriented x 3, clear to auscultation bilaterally and regular rate & rhythm Airway Mallampati: Class II Dentition: false GI Gastroesophageal Reflux Disease Metabolic Hyperlipidemia Anesthetic Plan ASA status: 2 Anesthesia: General Risk of > 500 ml blood loss (7ml/kg in children): No Medications/Allergies Home Medications Medication Instructions Recorded Confirmed Last Taken Type pantoprazole 40 mg tablet,delayed 40 mg PO DAILY 10/23/19 08/12/24 08/12/24 History release (Protonix) potassium chloride 8 mEq 8 meq PO QPM 05/29/22 08/12/24 08/11/24 History tablet,extended release montelukast 10 mg tablet 10 mg PO DAILY 02/06/23 08/12/24 08/12/24 History (Singulair) azelastine 137 mcg (0.1 %) nasal 1 spray intranasal BID 01/20/24 08/12/24 08/12/24 History spray duloxetine 30 mg capsule,delayed 30 mg PO DAILY 01/20/24 08/12/24 08/12/24 History release duloxetine 60 mg capsule,delayed 60 mg PO DAILY 01/20/24 08/12/24 08/12/24 History release fluticasone propionate 50 1 spray intranasal BID 01/20/24 08/12/24 08/12/24 History mcg/actuation nasal spray,suspension levocetirizine 5 mg tablet 5 mg PO DAILY 01/20/24 08/12/24 08/12/24 History promethazine 25 mg tablet 25 mg PO Q6H PRN Migraine Headache 01/20/24 08/12/24 Unknown History progesterone micronized 100 mg 100 mg PO BEDTIME #90 caps 06/13/24 11/18/24 11/17/24 Rx capsule (Prometrium) estradiol 0.075 mg/24 hr 1 patch transdermal .twice weekly 04/04/24 08/12/24 08/11/24 Rx semiweekly transdermal patch #24 ea varenicline 1 mg tablet (Chantix) 1 mg PO BID 06/20/24 08/12/24 08/12/24 History atorvastatin 20 mg tablet 20 mg PO QPM 08/12/24 08/12/24 08/11/24 History Allergies Allergy/AdvReac Type Severity Reaction Status Date / Time No Known Allergies Allergy Verified 07/08/24 09:09 [facility] Anesthesia Medical History Pes anserine bursitis Fracture of posterior malleolus of right tibia Fracture of right proximal fibula Fracture of tibial shaft, right, closed No pertinent past medical history Denies diabetes, asthma, seizures, hypertension, DVT/PE. PCP: Dr. Messer Cervical disc displacement Chronic back pain and takes as needed pain medication and muscle spasm medication for this managed by PMD Chronic GERD Since her 30s and is on medication-states EGD was normal Endometriosis Previously diagnosed with endometriosis by laparoscopy. Definitively treated with LAVH and BSO on 07/04/2017. -On HRT including progesterone to help minimize recurrence of endometriosis Chronic migraine Surgical History Status post colonoscopy 2020 bowel problems-patient was normal History of laparoscopy (~2003) X 2 2003---Dr. Shane and [address] Swenson treatment of endometriosis. History of cholecystectomy (~11/2013) Laparoscopic. Performed at [facility] History of hysterectomy (07/04/17) LAVH/BSO-- Dx: Endometriosis, Chronic pelvic pain, Right ovarian cyst. Performed by Dr. Swenson at [facility] in [place], [place]. Final diagnosis: Right mucinous cystadenoma. ----> endometriosis was noted in the posterior ovarian fossa and uterosacral ligaments. Family History Father Hypertension Grandfather Heart disease paternal Colon cancer paternal, diagnosed in his late 70s Lung cancer maternal Hypertension paternal Grandmother Heart disease paternal Breast cancer paternal, diagnosed in her 50s Stroke paternal Family/Other Diabetes MATERNAL AUNT Breast cancer paternal aunt, diagnosed in her 60s Ovarian cancer paternal cousin, diagnosed in her 20s Leukemia Maternal Aunt Thyroid disease maternal cousin Mother Lung cancer Denies family history of Uterine cancer Social History Smoking and tobacco/nicotine status: former use of tobacco/nicotine (05/2024) Data Anesthesia 08/12/24 11:03 08/12/24 11:03 Short CBC 08/12/24 Range/Units 11:03 WBC 9.08 (3.29-11.43) 10^3/uL Hgb 12.70 (11.27-16.99) g/dL Hct 38.1 (36-47) % MCV 88.2 (85-98) fl Plt Count 278 (157-399) 10^3/cmm Neut % (Auto) 59.4 % Neut # (Auto) 5.40 (1.8-7.7) 10^3/uL Urine 08/12/24 Range/Units 10:54 Urine Color Yellow (Yellow) Urine Appearance Clear (CLEAR) Urine pH 5.5 (5-7) Ur Specific [place] 1.023 (1.005-1.030) Urine Protein Negative (Negative) Urine Glucose (UA) Negative (Normal) Urine Ketones Negative (Negative) Urine Nitrate Negative (Negative) Urine Bilirubin Negative (Negative) Ur Leukocyte Esterase Negative (Negative) Urine RBC 3-5 (0-2) /hpf Urine WBC 0-5 (0-5) /hpf Cardiac Studies: No Data to Display
[2024-08-12 11:27] LABS: Alanine Aminotransferase 18 U/L (0-33); Albumin Level 4.5 g/dL (3.5-5.2); Alkaline Phosphatase 142 U/L (35-105); Anion Gap 14.3 (5-19); Aspartate Amino Transferase 19 U/L (0-32); Blood Urea Nitrogen 11 mg/dL (6-20); Calcium 9.5 mg/dL (8.5-10.5); Carbon Dioxide 26 mmol/L (22-29); Chloride 102 mmol/L (98-107); Globulin 2.9 g/dL (1.3-4.6); Glomerular Filtration Rate 108.6 mL/min (90-130); Glucose 109 mg/dL (65-115); Osmolality Calculated 286 mOsm/kg (285-295); Potassium 4.3 mmol/L (3.5-5.1); Sodium 138 mmol/L (136-145); Total Bilirubin 0.3 mg/dL (0.15-1.2); Total Protein 7.4 g/dL (6.6-8.7)
[2024-08-12 20:39] LABS: OR HCG Qualitative Urine Negative (Negative)
[2024-08-20] VITALS (13 sets, daily range): BP systolic 97–127; BP diastolic 65–94; PULSE 78–102; RESP 12–18; TEMP 36.3–36.6; O2SAT 94–100; BMI 27.6
[2024-08-20] MEDS: scopolamine 1.5 Patch 1 PATCH TRANSDERMA (09:19)
[2024-08-20] MEDS: sodium chloride 0.9% 500 ML IV (09:20)
--- NOTE | 2024-08-20 09:30 | P.ANESUD_ITS ---
Pre-Anesthetic Update Pre-Anesthetic Assessment: Date of Surgery/Procedure: 08/20/24 Preop Ligia gnosis: cystocele, rectocele, mixed incontinence Proposed Procedure: Operation Date: 08/20/24 10:30 Proposed Procedures p Anterior Repair Anterior Colporrhaphy 21341, 41839, N81.10, N81. 6(Not Applicable) - Cirilo Ellsworth MD s Posterior Repair Posterior Colporrhaphy(Not Applicable) - Cirilo Ellsworth MD s Sling Single Incision Midurethral Sling(Not Applicable) - Cirilo Ellsworth MD Any changes to Pre-Anesthetic Assessment?: No Last Intake: Intake Last Liquid Date 08/19/24 Last Liquid Time 23:00 Last Solid Date 08/19/24 Last Solid Time 20:30 Vitals: Temperature 97.9 F 08/20/24 09:03 Temperature Source Temporal Artery S can 08/20/24 09:03 Pulse Rate 78 08/20/24 09:03 Pulse Rhythm Regular 08/20/24 09:03 Pulse Strength 3+ Normal 08/20/24 09:03 Respiratory Rate 18 08/20/24 09:03 Blood Pressure 109/94 08/20/24 09:03 Blood Pressure Anna n 99 08/20/24 09:03 Pulse Oximetry 97 08/20/24 09:03 Oxygen Delivery Me thod Room Air 08/20/24 09:03 Exam: Pre-Anes Outpt Exam: alert, oriented x 3, clear to auscultation bilaterally and regular rate & rhythm Cardiac Studies: No Data to Display
--- NOTE | 2024-08-20 09:44 | W.PM.OPSUD ---
Surgery/Procedure H&P Update DATE OF PROCEDURE: August 20, 2024 DATE H&P PERFORMED: 08/12/24 H&P UPDATE INFORMATION: I have reviewed H&P completed within last 30 days, I have examined patient prior to procedure and No changes to prior documentation PREOP DIAGNOSIS: cystocele, rectocele, mixed incontinence PLANNED PROCEDURE: Operation Date: 08/20/24 10:30 Proposed Procedures p Anterior Repair Anterior Colporrhaphy 37069, 94120, N81.10, N81. 6(Not Applicable) - Cirilo Ellsworth MD s Posterior Repair Posterior Colporrhaphy(Not Applicable) - Cirilo Ellsworth MD s Sling Single Incision Midurethral Sling(Not Applicable) - Cirilo Ellsworth MD
[2024-08-20] MEDS: metroNIDAZOLE IV 500 MG/100 ML PREMIX 100 MG IV (12:19)
[2024-08-20] MEDS: ceFAZolin 2,000 mg SDV 2000 MG IVP (13:13)
[2024-08-20] MEDS: lidocaine 2% INJ 20 mL INJECTION (14:33)
--- NOTE | 2024-08-20 15:01 | W.PM.BPON ---
Date of Procedure: 08/20/24 Surgeon: Cirilo Ellsworth MD [employer]ne[employer](s): Procedure(s) performed: Anterior colporrhaphy augmented with allograft Mid urethral sling Posterior colporrhaphy Findings of the procedure(s): Cystocele, rectocele and urethral hypermobility Estimated blood loss: 200 Specimen(s) removed: None Post-operative diagnosis: Status post anterior vaginal wall repair, mid urethral sling and posterior vaginal wall repair
--- NOTE | 2024-08-20 15:02 | PM.OP ---
Operative Report Date of procedure: August 20, 2024 Pre-op diagnosis: Cystocele Rectocele Urinary incontinence Post-op diagnosis: same Procedure done: Anterior colporrhaphy augmented with allograft Mid urethral sling Posterior colporrhaphy Cystoscopy Surgeon: Cirilo Ellsworth MD Estimated blood loss (mL): 250 IV fluids (mL): 750 Urine output (mL): 100 Complications: none Procedure: After obtaining informed consent, the patient was taken to the operating room and placed in the supine position, given general anesthesia, and prepped and draped in sterile fashion. The abdomen, vulva and vagina were prepped and draped in a sterile manner. A time out procedure was performed. The vaginal mucosa was then injected in the midline with 2% lidocaine with epinephrine. A vertical midline incision was made beneath the midurethra, nearly 1.5 cm length. Careful submucosal dissection was performed bilaterally up to the interior portion of the inferior pubic ramus. The insertion of adductor longus tendon on the patient?s pubic ramus was identified as reference land kg. Palpated the notch along the internal edge of ischiopubic ramus where the adductor longus tendon and the inferior pubic ramus meet. The Altis single incision sling (SIS) was selected. Then the needle of the SIS inserted aiming at the location of this notch. One of the integrated self-fixating tips place onto the needle by sliding it over the end of the needle. The needle/sling assembly was inserted toward the location of identified reference notch making sure that the flat of the handle is perpendicular to the desired path. The needle was tracked along the posterior surface of the ischiopubic ramus until the midline kg on the mesh is approximately at the midline position under the urethra. The needle was removed and the same was repeated on the contralateral side until the appropriate sling tension under the urethra was achieved ensuring that the mesh lays flat. The needle was removed and vaginal incision was closed in a running interlocking fashion with 2-0 Vicryl. The vaginal mucosa was scored in the midline with the Bovie approximately 1 cm medial to the urethral meatus to 1 cm distal to the vaginal cuff. This vaginal mucosa was then undermined and then incised in the midline with the Metzenbaum scissors. The lateral aspects of the vaginal mucosa were then grasped with the Allis clamps and the vaginal mucosa was then dissected off the underlying fascia with the Metzenbaum scissors. Again, there was noted to be quite a bit of oozing at the incision, which was controlled with cautery. After adequate dissection was performed, bilaterally. A coloplast Dermis allograft was modified at time of application to fit spacea, 3 x 3 cm piece. The Coloplast allograft was placed in front of cystocele ready to be implanted facing the vagina mucosa. Suture is placed at distal end of graft and placed towards vaginal cuff. Final suture is placed on proximal portion of the graft to complete the placement overlying the bladder. Then Interrupted vertical mattress sutures of 0 Vicryl were used to elevate the cystocele superiorly. The excessive vaginal mucosa was then trimmed with the Metzenbaum scissors and the vaginal mucosa was then reapproximated in the running interlocking fashion with 2-0 Vicryl. A 2% lidocaine with epinephrine solution was infiltrated under the posterior vaginal mucosa midline and into the perineal body. An inverted triangle incision was cut in the perineum. The posterior vaginal wall was opened vertically and midline up to the apex of the rectocele. The cut edges were held and splayed laterally with a series of Allis clamps. The open vaginal mucosa was then dissected laterally with a combination of sharp and blunt dissection, exposing the perirectal fascia. The perirectal fascia was then reapproximated with interrupted #2-0 Vicryl sutures to draw the lateral folds together and tuck the rectocele back. Deep interrupted sutures of #0 Vicryl were used to reapproximate the fibers of the levator ani muscles. The excess vaginal mucosa was trimmed. The posterior vaginal wall was closed with a running locked #0 Vicryl to the hymenal tags. The superficial perineal muscles were closed with running unlocked #0 Vicryl and the perineal skin was closed with running subcuticular #2-0 Vicryl. Then the Camacho catheter was removed and cystoscope was inserted. The bladder was filled with sterile water. Complete evaluation of the bladder mucosa was performed noting no lacerations, dimpling, tears, bleeding of the mucosa or muscular layers. Both ureteral orifices were identified. Prompt excretion of urine from both ureteral orifices was noted. Cystoscope was withdrawn. The Camacho catheter was replaced. Excellent hemostasis was obtained. A vaginal pack is placed overnight as postoperative support for the vaginal tissues after graft placement and closure of vaginal incisions. Sponge, lap, needle, and instrument counts were correct times three. The patient was taken to the recovery room, awake and in stable condition.
--- NOTE | 2024-08-20 15:45 | ANE.PACU2 ---
Inpatient post-anesthesia follow up: Airway intact: Yes Vital signs: Temperature 97.6 F Pulse Rate 78 Respiratory Rate 15 Blood Pressure 102/59 Pulse Oximetry 95 Oxygen Delivery Me thod Room Air Oxygen Flow Rate 6 Fraction of Inspir ed Oxygen Hydration adequate: Yes Nausea and vomiting: No Pain level: 1 Mental status: Baseline
[2024-08-20] MEDS: dextrose 5%-lactated ringers 1,000 ML 125 ML IV ×2 (16:06→23:45)
[2024-08-20] MEDS: ketorolac 30 mg/mL INJ IVP ×2 (16:08→22:38)
[2024-08-20] MEDS: atorvastatin 40 mg Tablet 20 MG PO (17:20)
[2024-08-20] MEDS: fluticasone nasal spray 16gm Btl 1 SPRAY INTRANASAL (17:20)
[2024-08-20] MEDS: docusate sodium 100 mg Capsule PO (17:20)
[2024-08-20] MEDS: HYDROcodone-acetaminophen 5-325 mg Tablet PO (17:21)
[2024-08-20] MEDS: pantoprazole DR 40 mg Tablet PO (17:48)
--- NOTE | 2024-08-20 18:21 | PC.NURSE ---
hydrocodone Hand delivered one hydrocodone 5/325mg to [facility] in pharmacy.
[2024-08-21] VITALS: BP 101/61; PULSE 84; RESP 18; TEMP 36.6; O2SAT 92
[2024-08-21 03:54] VITALS: BP 99/57; PULSE 77; RESP 18; TEMP 37.1; O2SAT 95
[2024-08-21] MEDS: ketorolac 30 mg/mL INJ IVP (04:07)
--- NOTE | 2024-08-21 05:14 | PC.NURSE ---
packing and robison removed, nickel size drainage noted on pad
[2024-08-21 06:07] LABS: Hematocrit 30.2 % (36-47); Mean Corpuscular HGB Conc 32.1 g/dL (30-55); Mean Corpuscular Hemoglobin 28.4 pg (27-33); Mean Corpuscular Volume 88.3 fl (85-98); Mean Platelet Volume 10.6 fL (7.4-10.4); Platelet Count 262 10^3/cmm (157-399); Red Blood Count 3.42 10^6/uL (3.85-5.65); Red Cell Distribution Width 14.4 % (12.1-15.1); White Blood Count 14.62 10^3/uL (3.29-11.43)
--- NOTE | 2024-08-21 07:06 | PC.NURSE ---
voided 200 ml, post void bladder scan after 20 minutes of looking zero residual
--- NOTE | 2024-08-21 07:54 | PM.OBGYDC ---
Discharge Providers PSYCHOLOGICAL STRESS EVALUATOR Date of Admission: 08/20/24 13:27 Date of Discharge: 08/21/24 Attending Provider at Admission: Cirilo Ellsworth MD Attending Provider at Discharge: Cirilo Ellsworth MD Primary Care Provider: Ramya Messer DO Reason for Visit Reason for Visit: N81.6 Hospital Course Hospital Course Mrs. Choe 44-year-old female with a history of cystocele rectocele and mixed urinary incontinence. She was admitted for planned anterior colporrhaphy augmented with allograft, mid urethral sling, and posterior colporrhaphy. The procedures were performed without complication. Overnight observation was uneventful. She is afebrile hemodynamically stable postoperative day 1. Tolerating diet well. Ambulating without difficulty. PVR within normal limits. She was counseled regarding pelvic rest for 6 weeks (no sex, no tampons, no vaginal douches). Return to the emergency room if any fever, increased bleeding or pain. Physical Exam Narrative: GA: Alert and oriented ?3. HEENT: WNL. Heart: Regular rate and rhythm. Lungs: Clear to auscultation bilaterally. Abdomen: Bowel sounds present, nontender.. MOLD CHANGER: spotting bleeding. Extremities: No edema, no cyanosis, no calves pain. Urinary Catheter Management: Camacho: Cath Placed During This Visit: yes Urinary Catheter Date of Insertion: 08/20/24 Urinary Catheter Time of Insertion: 13:36 History History History 3 Term 3 0 Miscarriages/Ectopic 0 Living Children 3 Discharge Data Studies Completed and Pending Laboratory Results WBC 14.62 10^3/uL (3.29-11.43) H 08/21/24 05:28 RBC 3.42 10^6/uL (3.85-5.65) L 08/21/24 05:28 Hgb 9.70 g/dL (11.27-16.99) L 08/21/24 05:28 Hct 30.2 % (36-47) L 08/21/24 05:28 MCV 88.3 fl (85-98) 08/21/24 05:28 MCH 28.4 pg (27-33) 08/21/24 05:28 MCHC 32.1 g/dL (30-55) 08/21/24 05:28 RDW 14.4 % (12.1-15.1) 08/21/24 05:28 Plt Count 262 10^3/cmm (157-399) 08/21/24 05:28 MPV 10.6 fL (7.4-10.4) H 08/21/24 05:28 Neut % (Auto) 59.4 % 08/12/24 11:03 Lymph % (Auto) 28.0 % 08/12/24 11:03 Wilkes % (Auto) 7.5 % 08/12/24 11:03 Eos % (Auto) 3.9 % 08/12/24 11:03 Baso % (Auto) 0.9 % 08/12/24 11:03 Neut # (Auto) 5.40 10^3/uL (1.8-7.7) 08/12/24 11:03 Lymph # (Auto) 2.5 10^3/uL (0.8-4.8) 08/12/24 11:03 Wilkes # (Auto) 0.7 10^3/uL (0.2-0.9) 08/12/24 11:03 Eos # (Auto) 0.4 10^3/uL (0.0-0.8) 08/12/24 11:03 Baso # (Auto) 0.1 10^3/uL (0.0-0.1) 08/12/24 11:03 Nucleated RBC % (auto) 0 % 08/12/24 11:03 Nucleated RBCs # 0.0 /100WBC 08/12/24 11:03 Sodium 138 mmol/L (136-145) 08/12/24 11:03 Potassium 4.3 mmol/L (3.5-5.1) 08/12/24 11:03 Chloride 102 mmol/L (98-107) 08/12/24 11:03 Carbon Dioxide 26 mmol/L (22-29) 08/12/24 11:03 Anion Gap 14.3 (5-19) 08/12/24 11:03 BUN 11 mg/dL (6-20) 08/12/24 11:03 Creatinine 0.6 mg/dL (0.5-0.9) 08/12/24 11:03 GFR Calculation 108.6 mL/min (90-130) 08/12/24 11:03 Glucose 109 mg/dL (65-115) 08/12/24 11:03 Calculated Osmolality 286 mOsm/kg (285-295) 08/12/24 11:03 Calcium 9.5 mg/dL (8.5-10.5) 08/12/24 11:03 Total Bilirubin 0.3 mg/dL (0.15-1.2) 08/12/24 11:03 AST 19 U/L (0-32) 08/12/24 11:03 ALT 18 U/L (0-33) 08/12/24 11:03 Alkaline Phosphatase 142 U/L (35-105) H 08/12/24 11:03 Total Protein 7.4 g/dL (6.6-8.7) 08/12/24 11:03 Albumin 4.5 g/dL (3.5-5.2) 08/12/24 11:03 Globulin 2.9 g/dL (1.3-4.6) 08/12/24 11:03 Urine Color Yellow (Yellow) 08/12/24 10:54 Urine Appearance Clear (CLEAR) 08/12/24 10:54 Urine pH 5.5 (5-7) 08/12/24 10:54 Ur Specific [place] 1.023 (1.005-1.030) 08/12/24 10:54 Urine Protein Negative (Negative) 08/12/24 10:54 Urine Glucose (UA) Negative (Normal) 08/12/24 10:54 Urine Ketones Negative (Negative) 08/12/24 10:54 Urine Blood Negative (Negative) 08/12/24 10:54 Urine Nitrate Negative (Negative) 08/12/24 10:54 Urine Bilirubin Negative (Negative) 08/12/24 10:54 Urine Urobilinogen 1.0 mg/dL (Negative) 08/12/24 10:54 Ur Leukocyte Esterase Negative (Negative) 08/12/24 10:54 Urine RBC 3-5 /hpf (0-2) 08/12/24 10:54 Urine WBC 0-5 /hpf (0-5) 08/12/24 10:54 Ur Squamous Epith Cells 6-10 /hpf (0-5) 08/12/24 10:54 Amorphous Sediment Not Reportable 08/12/24 10:54 Urine Bacteria None seen /hpf (NONE) 08/12/24 10:54 Hyaline Casts 0-4 /lpf H 08/12/24 10:54 Urine HCG, Qual Negative (Negative) 08/12/24 10:54 Blood Type O Positive 08/20/24 09:17 Rho(D) Type Rh positive 08/20/24 09:17 Antibody Screen Negative 08/20/24 09:17 Vitals Last Vital Signs Temp 98.8 F 08/21/24 03:54 Pulse 77 08/21/24 03:54 Resp 18 08/21/24 03:54 BP 99/57 08/21/24 03:54 Pulse Ox 95 08/21/24 03:54 O2 Del Method Room Air 08/20/24 17:45 O2 Flow Rate 6 08/20/24 15:11 Results Labs OB ([facility]): Blood Type O Positive 08/20/24 Antibody Screen Negative 08/20/24 Hct 30.2 % (36-47) L 08/21/24 Hgb 9.70 g/dL (11.27-16.99) L 08/21/24 Rho(D) Type Rh positive 08/20/24 Plt Count 262 10^3/cmm (157-399) 08/21/24 Discharge Plan Discharge Patient Disposition: Home Condition: Stable Prescriptions: New ibuprofen 800 mg tablet 800 mg PO TID PRN (Reason: pain) Qty: 60 0RF hydrocodone-acetaminophen 5-325 mg tablet 1 tab PO Q4H PRN (Reason: pain) Qty: 10 0RF docusate sodium [Colace] 100 mg capsule 100 mg PO BID Qty: 60 0RF acetaminophen 325 mg capsule 325 mg PO Q4H PRN (Reason: fever or pain) Qty: 60 0RF oxybutynin chloride 5 mg tablet extended release 24hr 5 mg PO DAILY Qty: 30 0RF Continued pantoprazole [Protonix] 40 mg tablet,delayed release (DR/EC) 40 mg PO DAILY progesterone micronized [Prometrium] 100 mg capsule 100 mg PO BEDTIME Qty: 90 3RF montelukast [Singulair] 10 mg tablet 10 mg PO DAILY varenicline [Chantix] 1 mg tablet 1 mg PO BID estradiol 0.075 mg/24 hr patch semiweekly 1 patch transdermal .twice weekly Qty: 24 3RF Rx Instructions: monday and monday potassium chloride 8 mEq Tablet Extended Release 8 meq PO QPM promethazine 25 mg tablet 25 mg PO Q6H PRN (Reason: Migraine Headache) duloxetine 30 mg capsule,delayed release(DR/EC) 30 mg PO DAILY duloxetine 60 mg capsule,delayed release(DR/EC) 60 mg PO DAILY levocetirizine 5 mg tablet 5 mg PO DAILY azelastine 137 mcg (0.1 %) aerosol,spray 1 spray INTRANASAL BID fluticasone propionate 50 mcg/actuation spray,suspension 1 spray INTRANASAL BID atorvastatin 20 mg Tablet 20 mg PO QPM Discharge Orders: Discharge Order (Routine); Ordered 08/21/24 Ordered By: Cirilo Ellsworth Referrals: Cirilo Ellsworth MD [Physician] - 2 weeks Discharge Diet: GI Soft Discharge Activity: Limit activity as instructed Patient Instructions: Acute Wound Care (DC), Bladder Sling for Women (GEN), Anterior Vaginal Repair (GEN), Posterior Vaginal Repair (GEN), Opioid Safety, Post Anesthesia Care Activity Restrictions/Additional Instructions: 1. Please call [facility] on next working day to make your post-operative appointment in 2 weeks. 2. Please stay home until you come back to the clinic on first post-hospatilization check up. 3. Please follow instructions on your medications CAREFULLY. 4. If you have abdominal incision, do not cover it unless dressing is necessary because of drainage. OK to shower, but avoid bath. Leave steri-strips until they fall off. If they are still on one week after surgery, you may remove them. 5. If you had vaginal surgery or vaginal repair, Dr. Ellsworth may instruct you to take SITZ bath. 6. Yellow, blood tinged odorous vaginal discharge is usually normal after hysterectomy or vaginal surgeries. 7. No SEXUAL INTERCOURSE, tampons, or douches until you are completely released from the post-operative care. 8. Avoid constipation by eating right and maybe using some Metamucil or Milk of Magnesia. 9. All prescription refills are given during the working hours. Please do no wait till it runs out. Call the clinic at [phone] before your medication runs out. The clinic will get in touch with your doctor to prescribe medications if necessary. 10. Please remain within 40 mile radius from our hospital because emergencies do happen now and then during the post-operative period. 11. If you have stairs at home, take one step at a time slowly and minimize the number of trips. It helps to stay in one floor for the next few days. No lifting except what you can lift by one hand until you are released from the post-operative care. 12. Driving is discouraged until you are well healed. It may be 3-4 weeks before you feel strong enough to drive. You should be able to turn and look through the rear window without pain and you should be able to push the brake pedal very hard without pain before you drive. No fast rules, but SAFETY should be your primary concern. DO NOT drive if you are on sedating medications such as narcotics. 13. Call the clinic (during working hours) to make urgent appointment or go to the Emergency room, if any of the following occurs: i. Vaginal bleeding becomes heavy, more than a period. ii. Incision becomes red and sore, or drains pus. iii. Your TEMPERATURE is over 100.4F or you have chill. iv. IV site becomes red and swollen (a little ``knot?? is usually OK) v. Persistent nausea and vomiting vi. Persistent constipation or diarrhea vii. Rash or allergic reaction to medications. Discharge Attestations PSYCHOLOGICAL STRESS EVALUATOR Time Spent in Discharge Care*: greater than 30 min Coding Level of Care Code Acute Code for Chg Fwd
[2024-08-21 08:10] VITALS: BP 102/59; PULSE 78; RESP 15; TEMP 36.4; O2SAT 95
[2024-08-21] MEDS: docusate sodium 100 mg Capsule PO (09:10)
[2024-08-21] MEDS: montelukast sodium 10 mg Tablet PO (09:10)
[2024-08-21] MEDS: pantoprazole DR 40 mg Tablet PO (09:10)
[2024-08-21] MEDS: duloxetine 30 mg Capsule PO (09:10)
[2024-08-21] MEDS: duloxetine 60 mg Capsule PO (09:10)
[2024-08-21] MEDS: fluticasone nasal spray 16gm Btl 1 SPRAY INTRANASAL (09:11)
--- NOTE | 2024-08-21 09:41 | PC.NURSE ---
Discussed discharge with patient and family. This nurse in the room while Dr. Ellsworth went over extensive discharge activities with patient. Discussed medications new and continued and follow up appointments. Spouse and patient verbalized understanding.
[2024-08-21 10:28] VITALS: BP 102/59; PULSE 78; RESP 15; TEMP 36.4; O2SAT 95
== END 2024-08-21 09:25 | disposition home or self-care (01) ==
LOC: MEDSURG 13:30
PROVIDERS: Admitting Provider Obstetrics & Gynecology; PCP Family Medicine; Visit Provider Obstetrics & Gynecology
PROC: 0JQC0ZZ Repair Pelvic Region Subcutaneous Tissue and Fascia, Open Approach (ICD-10-PCS; CPT 57240; principal; 2024-08-20 10:30)
PROC: (CPT 57250; 2024-08-20 10:30)
PROC: (CPT 57288; 2024-08-20 10:30)
DX: N81.10 Cystocele, unspecified (principal); N81.6 Rectocele; R32 Unspecified urinary incontinence; K21.9 Gastro-esophageal reflux disease without esophagitis; E78.5 Hyperlipidemia, unspecified; Z87.891 Personal history of nicotine dependence
CPT/HCPCS: 57260; 57288; 36415; 80053; 81001; 81025; 85025; 85027; 86850; 86900; C1713; C1762; G0378; J0690; J1100; J1171; J1200; J1885; J2250; J2405; J2704; J3010; J3490; J7040; J7121

== ENCOUNTER 2024-08-29 08:38 | Outpatient (CLI) | payer OTHER, MEDICAID, SELFPAY ==
--- NOTE | 2024-08-29 08:48 | CTR_ITS ---
PROCEDURE INFORMATION: Exam: CT Abdomen And Pelvis With Contrast Exam date and time: 08/29/2024 10:02 AM Age: 44 years old Clinical indication: Abdominal pain; Localized; Left lower quadrant (llq); Prior surgery; Surgery date: 6+ months; Surgery type: Bladder, gb, hyst; Patient HX: Left lower quadrant pain and lumps x 2 years. Recent bladder surgery TECHNIQUE: Imaging protocol: Computed tomography of the abdomen and pelvis with contrast. Axial, coronal and sagittal reformatted images were created and reviewed. Radiation optimization: All CT scans at this facility use at least one of these dose optimization techniques: automated exposure control; mA and/or kV adjustment per patient size (includes targeted exams where dose is matched to clinical indication); or iterative reconstruction. Contrast material: OMNI 350; Contrast volume: 100 ml; Contrast route: INTRAVENOUS (IV); COMPARISON: CT abdomen pelvis w con* [id number] 02/08/2019 11:42 AM RADIATION DOSE METRICS: Total DLP (mGy-cm): 444.28 FINDINGS: Liver: Mild hepatomegaly. Diffuse hepatic steatosis. Gallbladder and biliary ducts: Status post cholecystectomy. No biliary ductal dilatation. Pancreas: Unremarkable. Spleen: Unremarkable. Adrenal glands: Normal. No mass. Kidneys and ureters: No mass. No radiodense calculi. No hydronephrosis. Stomach and bowel: No bowel wall thickening. No obstruction. No pneumatosis. Appendix: Normal. Intraperitoneal space: No free fluid. No organized fluid collection. No free air. Vasculature: Unremarkable. No aneurysm. Lymph nodes: No pathologically enlarged lymph nodes. Urinary bladder: Unremarkable as visualized. Reproductive: Status post hysterectomy. Bones/joints: No acute osseous abnormality. Osteopenia. Mild degenerative changes. Soft tissues: Unremarkable. CT/CT abdomen pelvis w con* [id number] IMPRESSION: 1. No CT evidence of acute intra-abdominal or pelvic pathology. 2. Additional findings, as above.
[2024-08-29] MEDS: iohexol 350 mg/mL 500 mL Btl (per mL) IV (10:08)
[2024-08-29] MEDS: iohexol 350 mg/mL 500 mL Btl (per mL) PO (10:08)
== END 2024-08-29 08:39 | disposition home or self-care (01) ==
LOC: RAD 08:39
PROVIDERS: PCP Family Medicine; Visit Provider Family Medicine
DX: R10.9 Unspecified abdominal pain (principal); K76.0 Fatty (change of) liver, not elsewhere classified; Z90.49 Acquired absence of other specified parts of digestive tract; M85.80 Other specified disorders of bone density and structure, unspecified site
CPT/HCPCS: 74177

== ENCOUNTER → 2024-09-27 12:36 | Outpatient (BNVA) | payer OTHER, MEDICAID, SELFPAY | PROVIDERS: PCP Family Medicine; Visit Provider Specialist | DX: G43.711 Chronic migraine without aura, intractable, with status migrainosus (principal); G43.709 Chronic migraine without aura, not intractable, without status migrainosus; L57.0 Actinic keratosis | CPT/HCPCS: 17000; 64615; 99214; J0585 ==

== ENCOUNTER → 2024-12-10 08:42 | Outpatient (BNVA) | payer OTHER, MEDICAID, SELFPAY | PROVIDERS: PCP Family Medicine; Visit Provider Family Medicine | DX: D64.9 Anemia, unspecified (principal); R53.83 Other fatigue; Z13.6 Encounter for screening for cardiovascular disorders; M25.579 Pain in unspecified ankle and joints of unspecified foot; M79.7 Fibromyalgia; K76.0 Fatty (change of) liver, not elsewhere classified | CPT/HCPCS: 80061; 82607; 83540; 84443; 85025 ==

== ENCOUNTER → 2025-01-03 12:07 | Outpatient (BNVA) | payer OTHER, MEDICAID, SELFPAY | PROVIDERS: PCP Family Medicine; Visit Provider Specialist | DX: G43.711 Chronic migraine without aura, intractable, with status migrainosus (principal) | CPT/HCPCS: 64615; J0585; J9999 ==

== ENCOUNTER → 2025-04-03 08:28 | Outpatient (BNVA) | payer OTHER, MEDICAID, SELFPAY | PROVIDERS: PCP Family Medicine; Visit Provider Specialist | DX: G43.711 Chronic migraine without aura, intractable, with status migrainosus (principal) | CPT/HCPCS: 64615; J0585; J9999 ==

== ENCOUNTER 2025-04-22 07:42 | Outpatient (CLI) | payer OTHER, MEDICAID, SELFPAY ==
--- NOTE | 2025-04-22 08:00 | MM_ITS ---
WS: [id number] BILATERAL 3D TOMOSYNTHESIS DIGITAL SCREENING MAMMOGRAPHY WITH CAD CLINICAL INFORMATION: Z12.31 - Encounter for screening mammogram for malignant ... HISTORY: Screening mammogram. No current complaints. COMPARISON: 2023 TECHNIQUE: Bilateral CC and MLO views. FINDINGS: The breasts are composed of heterogeneous fibroglandular density tissue, which can limit the detection of small underlying mass lesions. Nodular asymmetric density upper quadrant LEFT breast near the 12 o'clock position posterior depth. Recommend further evaluation with spot compression views and ultrasound if persistent Unremarkable RIGHT breast. MM/MM [facility] tomosynthesis [id number] IMPRESSION: DENSITY: The breasts are heterogeneously dense, which may obscure small masses. BI-RADS: 0 - Incomplete: Need additional imaging evaluation FOLLOW UP: Need Additional Imaging Recommend LEFT breast diagnostic mammography and ultrasound if persistent.
== END 2025-04-22 07:43 | disposition home or self-care (01) ==
PROVIDERS: PCP Family Medicine; Visit Provider Nurse Practitioner Women's Health
DX: Z12.31 Encounter for screening mammogram for malignant neoplasm of breast (principal); N30.01 Acute cystitis with hematuria; Z01.419 Encounter for gynecological examination (general) (routine) without abnormal findings; E89.40 Asymptomatic postprocedural ovarian failure; R92.333 Mammographic heterogeneous density, bilateral breasts; Z79.890 Hormone replacement therapy
CPT/HCPCS: 77063; 77067; 81000; 82306; 82670

== ENCOUNTER → 2025-08-05 08:40 | Outpatient (BNVA) | payer OTHER, MEDICAID, SELFPAY | PROVIDERS: PCP Family Medicine; Visit Provider Family Medicine | DX: E78.00 Pure hypercholesterolemia, unspecified (principal); K21.9 Gastro-esophageal reflux disease without esophagitis; K76.0 Fatty (change of) liver, not elsewhere classified | CPT/HCPCS: 80053 ==

== ENCOUNTER → 2025-08-18 16:15 | Outpatient (BNVA) | payer OTHER, MEDICAID, SELFPAY | PROVIDERS: PCP Family Medicine; Visit Provider Family Medicine | DX: M79.7 Fibromyalgia (principal); R00.0 Tachycardia, unspecified | CPT/HCPCS: 80048; 83735; 84439; 84481; 85025 ==